=== PATIENT | male | born 1935 | race Caucasian/White ===

== ENCOUNTER 2017-03-01 10:59 | Inpatient (IN) | payer MEDICARE, BC ==
[2017-03-01] MEDS ORDERED: Albuterol/Ipratropium 3.0-0.5 MG/3 ML Neb Soln NEB ONE (11:04)
[2017-03-01] MEDS ORDERED: methylPREDNISolone Sodium Succinate 125 MG/2 ML SDV IVPUSH ONE (11:04)
[2017-03-01] MEDS ORDERED: Ondansetron 4 MG/2 ML SDV IVPUSH ONE (11:07)
--- NOTE | 2017-03-01 11:07 | EDM.PDOC ---
ED HPI GENERAL MEDICAL PROBLEM - General Stated Complaint: DIARRHEA,VOMITING Time Seen by Provider: 03/01/17 11:06 Source of Information: Reports: Patient - History of Present Illness INITIAL COMMENTS - FREE TEXT/NARRATIVE: HISTORY AND PHYSICAL: History of present illness: [] Review of systems: As per history of present illness and below otherwise all systems reviewed and negative. Past medical history: As per history of present illness and as reviewed below otherwise noncontributory. Surgical history: As per history of present illness and as reviewed below otherwise noncontributory. Social history: No reported history of drug or alcohol abuse. Family history: As per history of present illness and as reviewed below otherwise noncontributory. Physical exam: HEENT: Atraumatic, normocephalic, pupils reactive, negative for conjunctival pallor or scleral icterus, mucous membranes moist, throat clear, neck supple, nontender, trachea midline. Lungs: Clear to auscultation, breath sounds equal bilaterally, chest nontender. Heart: S1S2, regular, negative for clicks, rubs, or JVD. Abdomen: Soft, nondistended, nontender. Negative for masses or hepatosplenomegaly. Negative for costovertebral tenderness. Pelvis: Stable nontender. Genitourinary: Deferred. Rectal: Deferred. Extremities: Atraumatic, negative for cords or calf pain. Neurovascular unremarkable. Neuro: Awake, alert, oriented. Cranial nerves II through XII unremarkable. Cerebellum unremarkable. Motor and sensory unremarkable throughout. Exam nonfocal. Diagnostics: []Lab as below EKG Chest 1 view Therapeutics: [DuoNeb Solu-Medrol 125 mg IV Normal saline 1 25 mL per hour Zofran 8 mg IV] Impression: Hypoxia []Viral syndrome Vomiting diarrhea Definitive disposition and diagnosis as appropriate pending reevaluation and review of above. Bilateral Knee Pain Score (Numeric/FACES): 5 - Related Data Allergies Allergy/AdvReac Type Severity Reaction Status Date / Time No Known Allergies Allergy Verified 03/01/17 11:21 Home Meds: Home Meds Lisinopril 10 mg PO DAILY 01/13/15 [History] amLODIPine [Norvasc] 10 mg PO DAILY 01/13/15 [History] traMADol [Ultram] 50 mg PO DAILY 01/13/15 [History] Allopurinol [Zyloprim] 300 mg PO DAILY 03/01/17 [History] Furosemide [Furosemide] 40 mg PO DAILY 03/01/17 [History] Metoprolol Tartrate [Metoprolol Tartrate] 25 mg PO BID 03/01/17 [History] Past Medical History Neurological History: Reports: CVA Endocrine/Metabolic History: Reports: Diabetes, Type II - Past Surgical History Neurological Surgical History: Reports: Lumbar Spine Social & Family History - Tobacco Use Smoking Status *Q: Never Smoker Second Hand Smoke Exposure: No - Recreational Drug Use Recreational Drug Use: No ED ROS GENERAL - Review of Systems Review Of Systems: ROS reveals no pertinent complaints other than HPI. ED EXAM, GENERAL - Physical Exam Exam: See Below Course - Vital Signs Last Recorded V/S: Last Vital Signs Temp 97.5 F 03/01/17 11:09 Pulse 102 H 03/01/17 11:09 Resp 38 H 03/01/17 11:09 BP 90/52 L 03/01/17 11:09 Pulse Ox 89 L 03/01/17 11:09 - Orders/Labs/Meds Orders: Active Orders 24 hr Category Date Time Status Admission Status [Patient Status] [ADT] Stat ADT 03/01/17 12:04 Active EKG Documentation Completion [RC] STAT Care 03/01/17 11:09 Active RT Aerosol Therapy [RC] ASDIRECTED Care 03/01/17 11:05 Active Chest 1V Frontal [CR] Stat Exams 03/01/17 11:04 Taken ABG [BLOOD GAS ARTERIAL] [BG] Stat Lab 03/01/17 11:53 Ordered CULTURE BLOOD [BC] Stat Lab 03/01/17 11:10 Received CULTURE BLOOD [BC] Stat Lab 03/01/17 11:20 Received INFLUENZA A+B AG SCREEN [RM] Stat Lab 03/01/17 11:50 Received UA W/MICROSCOPIC [URIN] Stat Lab 03/01/17 11:04 Uncollected Sodium Chloride 0.9% [Normal Saline] 1,000 ml Med 03/01/17 11:15 Active IV STAT Sodium Chloride 0.9% [Normal Saline] 1,000 ml Med 03/01/17 11:45 Active IV STAT Vancomycin [Vancocin] 1 gm Med 03/01/17 11:32 Active Sodium Chloride 0.9% [Normal Saline] 250 ml IV ONETIME Blood Culture x2 Reflex Set [OM.PC] Stat Oth 03/01/17 11:14 Ordered Medication Orders Sodium Chloride (Normal Saline) 1,000 mls @ 125 mls/hr IV STAT RAUL Vancomycin HCl 1 gm/ Sodium (Chloride) 250 mls @ 250 mls/hr IV ONETIME ONE Stop: 03/01/17 12:31 Last Admin: 03/01/17 11:45 Dose: 250 mls/hr Sodium Chloride (Normal Saline) 1,000 mls @ 125 mls/hr IV STAT [facility] Labs: Laboratory Tests 03/01/17 03/01/17 03/01/17 Range/Units 11:10 11:10 11:10 WBC 28.88 H (4.0-11.0) K/uL RBC 5.35 (4.50-5.90) M/uL Hgb 15.9 (13.0-17.0) g/dL Hct 46.7 (38.0-50.0) % MCV 87.3 (80.0-98.0) fL MCH 29.7 (27.0-32.0) pg MCHC 34.0 (31.0-37.0) g/dL RDW Std Deviation 47.3 (28.0-62.0) fl RDW Coeff of Tanisha 15 (11.0-15.0) % Plt Count 154 (150-400) K/uL MPV 12.40 H (7.40-12.00) fL Add Manual Diff YES Neutrophils % (Manual) 80 (48.0-80.0) % Band Neutrophils % 7 % Lymphocytes % (Manual) 8 L (16.0-40.0) % Monocytes % (Manual) 5 (0.0-15.0) % Nucleated RBC % 0.0 /100WBC Absolute Seg Neuts 23.1 H (1.4-5.7) Band Neutrophils # 2.0 Lymphocytes # (Manual) 2.3 (0.6-2.4) Monocytes # (Manual) 1.4 H (0.0-0.8) Nucleated RBCs # 0 K/uL Lactate (0.20-2.00) mmol/L Sodium 136 (136-146) mmol/L Potassium 3.8 (3.5-5.1) mmol/L Chloride 100 (98-110) mmol/L Carbon Dioxide 16 L (21-31) mmol/L BUN 78 H (6.0-23.0) mg/dL Creatinine 3.2 H (0.6-1.5) mg/dL Est Cr Clr Drug Dosing 16.61 mL/min Estimated GFR (MDRD) 18.8 ml/min Glucose 202 H (60-110) mg/dL POC Glucose (60-110) mg/dL Calcium 9.7 (8.8-10.8) mg/dL Total Bilirubin 1.2 (0.1-1.5) mg/dL AST 22 (5-40) IU/L ALT 12 (8-54) IU/L Alkaline Phosphatase 84 (40-150) Creatine Kinase 100 (9-236) IU/L CK-MB (CK-2) 3.4 (0-6.6) ng/ml Troponin I < 0.10 (0.0-0.29) NG/ML B-Natriuretic Peptide 213 H (<100) PG/ML Total Protein 7.5 (6.0-8.0) g/dL Albumin 3.6 (3.4-4.8) g/dL Globulin 3.9 H (2.0-3.5) g/dL Albumin/Globulin Ratio 0.9 L (1.3-2.8) 03/01/17 03/01/17 Range/Units 11:10 11:11 WBC (4.0-11.0) K/uL RBC (4.50-5.90) M/uL Hgb (13.0-17.0) g/dL Hct (38.0-50.0) % MCV (80.0-98.0) fL MCH (27.0-32.0) pg MCHC (31.0-37.0) g/dL RDW Std Deviation (28.0-62.0) fl RDW Coeff of Tanisha (11.0-15.0) % Plt Count (150-400) K/uL MPV (7.40-12.00) fL Add Manual Diff Neutrophils % (Manual) (48.0-80.0) % Band Neutrophils % % Lymphocytes % (Manual) (16.0-40.0) % Monocytes % (Manual) (0.0-15.0) % Nucleated RBC % /100WBC Absolute Seg Neuts (1.4-5.7) Band Neutrophils # Lymphocytes # (Manual) (0.6-2.4) Monocytes # (Manual) (0.0-0.8) Nucleated RBCs # K/uL Lactate 6.1 H (0.20-2.00) mmol/L Sodium (136-146) mmol/L Potassium (3.5-5.1) mmol/L Chloride (98-110) mmol/L Carbon Dioxide (21-31) mmol/L BUN (6.0-23.0) mg/dL Creatinine (0.6-1.5) mg/dL Est Cr Clr Drug Dosing mL/min Estimated GFR (MDRD) ml/min Glucose (60-110) mg/dL POC Glucose 201 H (60-110) mg/dL Calcium (8.8-10.8) mg/dL Total Bilirubin (0.1-1.5) mg/dL AST (5-40) IU/L ALT (8-54) IU/L Alkaline Phosphatase (40-150) Creatine Kinase (9-236) IU/L CK-MB (CK-2) (0-6.6) ng/ml Troponin I (0.0-0.29) NG/ML B-Natriuretic Peptide (<100) PG/ML Total Protein (6.0-8.0) g/dL Albumin (3.4-4.8) g/dL Globulin (2.0-3.5) g/dL Albumin/Globulin Ratio (1.3-2.8) Meds: Medications Generic Name Dose Route Start Last Admin Trade Name Freq PRN Reason Stop Dose Admin Sodium Chloride 1,000 mls @ 125 mls/hr 03/01/17 11:15 Normal Saline IV STAT RAUL Vancomycin HCl 1 gm/ Sodium 250 mls @ 250 mls/hr 03/01/17 11:32 03/01/17 11: 45 Chloride IV 03/01/17 12:31 250 mls/hr ONETIME ONE Administration Sodium Chloride 1,000 mls @ 125 mls/hr 03/01/17 11:45 Normal Saline IV STAT RAUL Discontinued Medications Generic Name Dose Route Start Last Admin Trade Name Freq PRN Reason Stop Dose Admin Albuterol/Ipratropium 3 ml 03/01/17 11:04 03/01/17 11:34 Duoneb 3.0-0.5 Mg/3 Ml NEB 03/01/17 11:05 3 ml ONETIME ONE Administration Piperacillin Sod/Tazobactam 50 mls @ 100 mls/hr 03/01/17 11:31 03/01/17 11:36 Sod 2.25 gm/ Sodium Chloride IV 03/01/17 12:00 100 mls/hr ONETIME ONE Administration Methylprednisolone Sodium Succinate 125 mg 03/01/17 11:04 03/01/17 11:33 Solu-Medrol IVPUSH 03/01/17 11:05 125 mg ONETIME ONE Administration Ondansetron HCl 8 mg 03/01/17 11:07 03/01/17 11:33 Zofran IVPUSH 03/01/17 11:08 8 mg ONETIME ONE Administration Departure - Departure Time of Disposition: 12:06 Disposition: Admitted As Inpatient 68 Condition: Poor Clinical Impression: Pneumonia, Hypotension - Discharge Information Referrals: Richard Garrido MD [Primary Care Provider] - - My Orders Last 24 Hours: My Active Orders 03/01/17 11:04 Chest 1V Frontal [CR] Stat UA W/MICROSCOPIC [URIN] Stat 03/01/17 11:05 RT Aerosol Therapy [RC] ASDIRECTED 03/01/17 11:09 EKG Documentation Completion [RC] STAT 03/01/17 11:10 CULTURE BLOOD [BC] Stat 03/01/17 11:14 Blood Culture x2 Reflex Set [OM.PC] Stat 03/01/17 11:15 Sodium Chloride 0.9% [Normal Saline] 1,000 ml IV STAT 03/01/17 11:20 CULTURE BLOOD [BC] Stat 03/01/17 11:32 Vancomycin [Vancocin] 1 gm Sodium Chloride 0.9% [Normal Saline] 250 ml IV ONETIME 03/01/17 11:45 Sodium Chloride 0.9% [Normal Saline] 1,000 ml IV STAT 03/01/17 11:50 INFLUENZA A+B AG SCREEN [RM] Stat 03/01/17 11:53 ABG [BLOOD GAS ARTERIAL] [BG] Stat 03/01/17 12:04 Admission Status [Patient Status] [ADT] Stat - Assessment/Plan Last 24 Hours: My Active Orders 03/01/17 11:04 Chest 1V Frontal [CR] Stat UA W/MICROSCOPIC [URIN] Stat 03/01/17 11:05 RT Aerosol Therapy [RC] ASDIRECTED 03/01/17 11:09 EKG Documentation Completion [RC] STAT 03/01/17 11:10 CULTURE BLOOD [BC] Stat 03/01/17 11:14 Blood Culture x2 Reflex Set [OM.PC] Stat 03/01/17 11:15 Sodium Chloride 0.9% [Normal Saline] 1,000 ml IV STAT 03/01/17 11:20 CULTURE BLOOD [BC] Stat 03/01/17 11:32 Vancomycin [Vancocin] 1 gm Sodium Chloride 0.9% [Normal Saline] 250 ml IV ONETIME 03/01/17 11:45 Sodium Chloride 0.9% [Normal Saline] 1,000 ml IV STAT 03/01/17 11:50 INFLUENZA A+B AG SCREEN [RM] Stat 03/01/17 11:53 ABG [BLOOD GAS ARTERIAL] [BG] Stat 03/01/17 12:04 Admission Status [Patient Status] [ADT] Stat
[2017-03-01] MEDS ORDERED: Sodium Chloride 0.9% 1,000 ML IV SCH ×2 (11:15→11:45)
[2017-03-01] MEDS ORDERED: Piperacillin/Tazobactam 2.25 GM in Sodium Chloride 0.9% 50 ML IV ONE (11:31)
[2017-03-01 11:45] LABS: CHLORIDE,CL 100 mmol/L (98-110); SODIUM,NA 136 mmol/L (136-146)
[2017-03-01] MEDS ORDERED: Sodium Chloride 0.9% 500 ML IV ONE (12:25)
--- NOTE | 2017-03-01 12:30 | PCM.HP ---
H&P History of Present Illness - General Date of Service: 03/01/17 Admit Problem/Dx: Admission Diagnosis/Problem Admission Diagnosis/Problem Pneumonia Source of Information: Patient, Family History Limitations: Reports: No Limitations - History of Present Illness Initial Comments - Free Text/Narative: 82 yo male presenting to Ed with chief complaint of shortness of breath with pmh of CHF, Htn, TIA on aspirin, Insulin-dependent DM II, and gout. Patient presented to ED with increasing shortness of breath x 1 week. Reports associated fever, chills, nausea, vomiting and diarrhea x 1 week. States he awoke this am and was unable to eat secondary to sob and decreased appetite. History of CHF, htn, TIA on aspirn only, insulin-dependent DMII and gout. In ED intial BP in low 70's/30's improved to 80/50 with 1 L NS bolus. Found to have WBC of 22k, lactate 6.1, BUN 78, Cr 3.2. CXR revealing mild cardiomegaly with mild interstitial pulmonary edema and early infiltrate in medial right lung base. Patient was alert and orientated in moderate distress but able to answer questions with O2 sat of high 80's to 90's on 15 L nonrebreather. Granddaughter and daughter at bedside. Denies chest pain, palpitations, syncopal episodes, abdominal pain, or focal neurologic deficits. Has had some pain with urination. Patient A&O x3 with family present wishes to be DNR/DNI. Will admit to ICU for septic shock most likely secondary to pneumonia. Bilateral Knee Pain Score (Numeric/FACES): 5 - Related Data Allergies/Adverse Reactions: Allergies Allergy/AdvReac Type Severity Reaction Status Date / Time No Known Allergies Allergy Verified 03/01/17 11:21 Home Medications: Home Meds Lisinopril 10 mg PO DAILY 01/13/15 [History] amLODIPine [Norvasc] 10 mg PO DAILY 01/13/15 [History] traMADol [Ultram] 50 mg PO DAILY 01/13/15 [History] Allopurinol [Zyloprim] 300 mg PO DAILY 03/01/17 [History] Furosemide [Furosemide] 40 mg PO DAILY 03/01/17 [History] Metoprolol Tartrate [Metoprolol Tartrate] 25 mg PO BID 03/01/17 [History] Past Medical History Cardiovascular History: Reports: Hypertension Neurological History: Reports: CVA Endocrine/Metabolic History: Reports: Diabetes, Type II - Infectious Disease History Infectious Disease History: Reports: Chicken Pox, Measles, Mumps, Rubella - Past Surgical History Neurological Surgical History: Reports: Lumbar Spine Social & Family History - Tobacco Use Smoking Status *Q: Never Smoker Used Tobacco, but Quit: Yes Month Tobacco Last Used: 1979 Second Hand Smoke Exposure: No - Caffeine Use Caffeine Use: Reports: Coffee - Alcohol Use Number of Drinks Per Day: 1 - Recreational Drug Use Recreational Drug Use: No H&P Review of Systems - Review of Systems: Review Of Systems: See Below General: Reports: Fever, Chills, Weakness, Fatigue, Diaphoresis HEENT: Denies: Headaches, Sore Throat Pulmonary: Reports: Shortness of Breath, Wheezing, Cough, Sputum Cardiovascular: Denies: Chest Pain, Palpitations, Edema Gastrointestinal: Reports: Diarrhea, Decreased Appetite, Nausea, Vomiting. Denies: Abdominal Pain, Black Stool, Bloody Stool, Constipation Genitourinary: Reports: Dysuria, Burning. Denies: Hematuria Musculoskeletal: Reports: Back Pain. Denies: Neck Pain, Leg Pain Skin: Denies: Cyanosis Psychiatric: Denies: Confusion Neurological: Denies: Confusion, Dizziness, Headache Hematologic/Lymphatic: Denies: Anemia Immunologic: Denies: Anaphylaxis Exam - Exam Exam: See Below - Vital Signs Vital Signs: Last Vital Signs Temp 97.5 F 03/01/17 11:09 Pulse 102 H 03/01/17 11:09 Resp 38 H 03/01/17 11:09 BP 90/52 L 03/01/17 11:09 Pulse Ox 89 L 03/01/17 11:09 Weight: 98 kg - Exam Quality Assessment: Supplemental Oxygen, Urinary Catheter, DVT Prophylaxis General: Alert, Oriented, Cooperative, Moderate Distress HEENT: Conjunctiva Clear, EACs Clear, EOMI, Hearing Intact, Mucosa Moist & [place] , Nares Patent, Normal Nasal Septum, Posterior Pharynx Clear, PERRLA Neck: Supple, Trachea Midline, 2 Lungs: Decreased Breath Sounds, Crackles, Rales, Wheezing Cardiovascular: Regular Rhythm, Normal S1, Normal S2, Tachycardia GI/Abdominal Exam: Normal Bowel Sounds, Soft, Non-Tender, No Organomegaly, No Distention Back Exam: Normal Inspection Extremities: Normal Inspection, Non-Tender, No Pedal Edema, Normal Capillary Refill Peripheral Pulses: 2+: Radial (L), Radial (R), Posterior Tibial (L), Posterior Tibial (R), Dorsalis Pedis (L), Dorsalis Pedis (R) Skin: Warm, Intact, Cool, Moist Neurological: Cranial Nerves Intact Neuro Extensive - Mental Status: Alert, Oriented x3, Normal Mood/Affect, Normal Cognition Psychiatric: Alert, Normal Affect, Normal Mood - Patient Data Lab Results Last 24 hrs: Laboratory Results - last 24 hr 03/01/17 03/01/17 03/01/17 Range/Units 11:10 11:10 11:10 WBC 28.88 H (4.0-11.0) K/uL RBC 5.35 (4.50-5.90) M/uL Hgb 15.9 (13.0-17.0) g/dL Hct 46.7 (38.0-50.0) % MCV 87.3 (80.0-98.0) fL MCH 29.7 (27.0-32.0) pg MCHC 34.0 (31.0-37.0) g/dL RDW Std Deviation 47.3 (28.0-62.0) fl RDW Coeff of Tanisha 15 (11.0-15.0) % Plt Count 154 (150-400) K/uL MPV 12.40 H (7.40-12.00) fL Add Manual Diff YES Neutrophils % (Manual) 80 (48.0-80.0) % Band Neutrophils % 7 % Lymphocytes % (Manual) 8 L (16.0-40.0) % Monocytes % (Manual) 5 (0.0-15.0) % Nucleated RBC % 0.0 /100WBC Absolute Seg Neuts 23.1 H (1.4-5.7) Band Neutrophils # 2.0 Lymphocytes # (Manual) 2.3 (0.6-2.4) Monocytes # (Manual) 1.4 H (0.0-0.8) Nucleated RBCs # 0 K/uL ABG pH (7.35-7.45) ABG pCO2 (35-45) mmHG ABG pO2 (75-100) mmHG ABG HCO3 (22-26) mEq/L ABG Total CO2 ABG Base Excess (-2.0-2.0) Lactate (0.20-2.00) mmol/L Sodium 136 (136-146) mmol/L Potassium 3.8 (3.5-5.1) mmol/L Chloride 100 (98-110) mmol/L Carbon Dioxide 16 L (21-31) mmol/L BUN 78 H (6.0-23.0) mg/dL Creatinine 3.2 H (0.6-1.5) mg/dL Est Cr Clr Drug Dosing 16.61 mL/min Estimated GFR (MDRD) 18.8 ml/min Glucose 202 H (60-110) mg/dL POC Glucose (60-110) mg/dL Calcium 9.7 (8.8-10.8) mg/dL Total Bilirubin 1.2 (0.1-1.5) mg/dL AST 22 (5-40) IU/L ALT 12 (8-54) IU/L Alkaline Phosphatase 84 (40-150) Creatine Kinase 100 (9-236) IU/L CK-MB (CK-2) 3.4 (0-6.6) ng/ml Troponin I < 0.10 (0.0-0.29) NG/ML B-Natriuretic Peptide 213 H (<100) PG/ML Total Protein 7.5 (6.0-8.0) g/dL Albumin 3.6 (3.4-4.8) g/dL Globulin 3.9 H (2.0-3.5) g/dL Albumin/Globulin Ratio 0.9 L (1.3-2.8) 03/01/17 03/01/17 03/01/17 Range/Units 11:10 11:11 11:33 WBC (4.0-11.0) K/uL RBC (4.50-5.90) M/uL Hgb (13.0-17.0) g/dL Hct (38.0-50.0) % MCV (80.0-98.0) fL MCH (27.0-32.0) pg MCHC (31.0-37.0) g/dL RDW Std Deviation (28.0-62.0) fl RDW Coeff of Tanisha (11.0-15.0) % Plt Count (150-400) K/uL MPV (7.40-12.00) fL Add Manual Diff Neutrophils % (Manual) (48.0-80.0) % Band Neutrophils % % Lymphocytes % (Manual) (16.0-40.0) % Monocytes % (Manual) (0.0-15.0) % Nucleated RBC % /100WBC Absolute Seg Neuts (1.4-5.7) Band Neutrophils # Lymphocytes # (Manual) (0.6-2.4) Monocytes # (Manual) (0.0-0.8) Nucleated RBCs # K/uL ABG pH 7.345 L (7.35-7.45) ABG pCO2 30 L (35-45) mmHG ABG pO2 38 L* (75-100) mmHG ABG HCO3 16 L (22-26) mEq/L ABG Total CO2 14.7 ABG Base Excess -7.4 L (-2.0-2.0) Lactate 6.1 H (0.20-2.00) mmol/L Sodium (136-146) mmol/L Potassium (3.5-5.1) mmol/L Chloride (98-110) mmol/L Carbon Dioxide (21-31) mmol/L BUN (6.0-23.0) mg/dL Creatinine (0.6-1.5) mg/dL Est Cr Clr Drug Dosing mL/min Estimated GFR (MDRD) ml/min Glucose (60-110) mg/dL POC Glucose 201 H (60-110) mg/dL Calcium (8.8-10.8) mg/dL Total Bilirubin (0.1-1.5) mg/dL AST (5-40) IU/L ALT (8-54) IU/L Alkaline Phosphatase (40-150) Creatine Kinase (9-236) IU/L CK-MB (CK-2) (0-6.6) ng/ml Troponin I (0.0-0.29) NG/ML B-Natriuretic Peptide (<100) PG/ML Total Protein (6.0-8.0) g/dL Albumin (3.4-4.8) g/dL Globulin (2.0-3.5) g/dL Albumin/Globulin Ratio (1.3-2.8) Result Diagrams: 03/01/17 11:10 03/01/17 11:10 Jc Results Last 24 hrs: Microbiology 03/01/17 11:50 Influenza Type A Antigen Screen - Final Nasopharyngeal Swab NEGATIVE INFLUENZA A VIRUS AG Influenza Type B Antigen Screen - Final NEGATIVE INFLUENZA B VIRUS AG *Q Meaningful Use (ADM) - VTE *Q VTE Criteria *Q: - Stroke *Q Stroke Criteria *Q: - AMI *Q AMI Criteria *Q: - Problem List (1) Sepsis due to Gram-negative organism with septic shock SNOMED Code(s): 078754160 ICD Code: A41.50 - GRAM-NEGATIVE SEPSIS, UNSPECIFIED; R65.21 - SEVERE SEPSIS WITH SEPTIC SHOCK Status: Suspected Priority: High Current Visit: Yes (2) Pneumonia due to gram-negative bacteria SNOMED Code(s): 473904165 ICD Code: J15.6 - PNEUMONIA DUE TO OTHER GRAM-NEGATIVE BACTERIA Status: Suspected Priority: High Current Visit: Yes (3) CHF (congestive heart failure) SNOMED Code(s): 32153355 ICD Code: I50.9 - HEART FAILURE, UNSPECIFIED Status: Chronic Priority: High Current Visit: Yes Qualifiers: Congestive heart failure type: unspecified congestive heart failure type (4) Hypertension SNOMED Code(s): 11777499 ICD Code: I10 - ESSENTIAL (PRIMARY) HYPERTENSION Status: Chronic Priority : Low Current Visit: Yes Qualifiers: Hypertension type: unspecified Qualified Code(s): I10 - Essential (primary ) hypertension (5) Insulin dependent diabetes mellitus SNOMED Code(s): 10358926 ICD Code: E11.9 - TYPE 2 DIABETES MELLITUS WITHOUT COMPLICATIONS; Z79.4 - FAMILY PRESERVATION WORKER (CURRENT) USE OF INSULIN Status: Chronic Priority: Low Current Visit: Yes (6) History of TIA (transient ischemic attack) SNOMED Code(s): 758161771 ICD Code: Z86.73 - PRSNL HX OF TIA (TIA), AND CEREB INFRC W/O RESID DEFICITS Status: Chronic Priority: Low Current Visit: Yes (7) Gout SNOMED Code(s): 26364410 ICD Code: M10.9 - GOUT, UNSPECIFIED Status: Chronic Priority: Low Current Visit: Yes Qualifiers: Gout etiology: unspecified cause Chronicity: unspecified Laterality: unspecified laterality Problem List Initiated/Reviewed/Updated: Yes Orders Last 24hrs: Active Orders 24 hr Category Date Time Status Admission Status [Patient Status] [ADT] Stat ADT 03/01/17 12:04 Active EKG Documentation Completion [RC] STAT Care 03/01/17 11:09 Active RT Aerosol Therapy [RC] ASDIRECTED Care 03/01/17 11:05 Active Chest 1V Frontal [CR] Stat Exams 03/01/17 11:04 Taken CULTURE BLOOD [BC] Stat Lab 03/01/17 11:10 Received CULTURE BLOOD [BC] Stat Lab 03/01/17 11:20 Received UA W/MICROSCOPIC [URIN] Stat Lab 03/01/17 11:04 Uncollected Sodium Chloride 0.9% [Normal Saline] 1,000 ml Med 03/01/17 11:15 Active IV STAT Sodium Chloride 0.9% [Normal Saline] 1,000 ml Med 03/01/17 11:45 Active IV STAT Sodium Chloride 0.9% [Normal Saline] 500 ml Med 03/01/17 12:25 Active IV .Bolus Vancomycin [Vancocin] 1 gm Med 03/01/17 11:32 Active Sodium Chloride 0.9% [Normal Saline] 250 ml IV ONETIME Blood Culture x2 Reflex Set [OM.PC] Stat Oth 03/01/17 11:14 Ordered Medication Orders Sodium Chloride (Normal Saline) 1,000 mls @ 125 mls/hr IV STAT RAUL Vancomycin HCl 1 gm/ Sodium (Chloride) 250 mls @ 250 mls/hr IV ONETIME ONE Stop: 03/01/17 12:31 Last Admin: 03/01/17 11:45 Dose: 250 mls/hr Sodium Chloride (Normal Saline) 1,000 mls @ 125 mls/hr IV STAT RAUL Sodium Chloride (Normal Saline) 500 mls @ 999 mls/hr IV .Bolus ONE Stop: 03/01/17 12:55 Assessment/Plan Comment:: 82 yo male admitted 03/01/17 to ICU secondary to suspected septic shock from gram negative pneumonia with pmh of CHF, Htn, 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, Insulin- dependent DMII and gout. Septic shock w/R medial lung base pna: Serial Lactate q 4 hrs. IVF resus at 200 ml/hr has recieved 2 L of bolus fluids monitor and bolus as needed. Hx of CHF will need to take into consideration. Consider A-line placement once on floor. Vanc, Zosyn, Levaquin. Blood culutures and sputum cultures obtained. Duo-nebs q 4hrs. Blood gas. Telemetry Acute renal failure: Most likely to severe dehydration. IVF resus. Monitor closely. CHF: Echocardiogram, Telemetry. Monitor for vol. overload but needing IVF resus secondary to sepsis and hypotension Htn: Hyotensive secondary to sepsis hold home meds Hx of TIA: Patient will be on Heparin for VTE proph will hold home aspirn DMII: Patient is supposed to be on Insulin as per granddaughter (nurse) but does not take. ISS low dose at this point monitor VTE: Heparin, SCD Dispo: 4-5 days pending.
[2017-03-01] MEDS ORDERED: Ondansetron 4 MG Tab.DIS PO PRN (12:33)
[2017-03-01] MEDS ORDERED: oxyCODONE 5 MG Tab PO PRN (12:33)
[2017-03-01] MEDS ORDERED: Acetaminophen 325 MG Tab PO PRN (12:33)
[2017-03-01] MEDS ORDERED: Polyethylene Glycol 3350 Powder 17 GM Packet PO PRN (12:33)
[2017-03-01] MEDS ORDERED: Morphine 10 MG/ML Syringe IVPUSH PRN (12:33)
[2017-03-01] MEDS ORDERED: Ondansetron 4 MG/2 ML SDV IVPUSH PRN (12:33)
[2017-03-01] MEDS ORDERED: Piperacillin/Tazobactam 4.5 GM in Sodium Chloride 0.9% 100 ML IV SCH (12:45)
[2017-03-01] MEDS ORDERED: Levofloxacin/Dextrose 5%-Water 750 MG in Premix Bag 1 BAG IV SCH ×2 (12:45→14:00)
[2017-03-01] MEDS ORDERED: Piperacillin/Tazobactam 2.25 GM in Sodium Chloride 0.9% 50 ML IV SCH ×2 (13:12→18:00)
[2017-03-01] MEDS ORDERED: Vancomycin 0.5 GM in Sodium Chloride 0.9% 100 ML IV SCH (13:30)
[2017-03-01] MEDS: Sodium Chloride 0.9% 1,000 ML IV SCH ×3 (13:54→23:15)
[2017-03-01] MEDS: Albuterol/Ipratropium 3.0-0.5 MG/3 ML Neb Soln NEB SCH ×3 (13:59→22:42)
[2017-03-01] MEDS ORDERED: Lidocaine 2% 5 ML SDV ONE (14:19)
[2017-03-01] MEDS: cefTRIAXone 2 GM in Premix Bag 1 BAG IV SCH (14:41)
--- NOTE | 2017-03-01 14:43 | PCM.PRNOTE ---
- Free Text/Narrative Note: ARTERIAL LINE (A-Line) PLACEMENT Date: 02/28/17 Time: 1420 Indication: Hemodynamic monitoring Attending: Tonny Zamudio MD A time-out was completed verifying correct patient, procedure, site, positioning , and special equipment if applicable. Allens test was performed to ensure adequate perfusion. The patients left wrist was prepped and draped in sterile fashion. 1% Lidocaine was used to anesthetize the area. A 20G Arrow arterial line was introduced into the radial artery. The catheter was threaded over the guide wire and the needle was removed with appropriate pulsatile blood return. The catheter was then taped in place to the skin and a sterile dressing applied. Perfusion to the extremity distal to the point of catheter insertion was checked and found to be adequate. Estimated Blood Loss: 1 ml The patient tolerated the procedure well and there were no complications.
[2017-03-01] MEDS: Heparin Sodium 5,000 Units/ML Vial SUBCUT SCH ×3 (14:46→22:42)
[2017-03-01] MEDS ORDERED: Insulin Aspart 100 Units/ML 3 ML Pen SUBCUT SCH (17:00)
[2017-03-01] MEDS ORDERED: Magnesium Sulfate/Water 4 GM in Premix Bag 1 BAG IV ONE (19:18)
[2017-03-01] MEDS: Nicotine 7 MG/24 Hr Patch TRDERM SCH (22:01)
[2017-03-01] MEDS: Doxycycline 100 MG Cap PO SCH (22:42)
[2017-03-01] MEDS: Insulin Aspart 100 Units/ML 3 ML Pen SUBCUT SCH (23:01)
[2017-03-02] MEDS ORDERED: Insulin Aspart 100 Units/ML 3 ML Pen SUBCUT SCH
[2017-03-02] MEDS ORDERED: Sodium Chloride 0.9% 500 ML IV SCH (00:45)
[2017-03-02] MEDS: Albuterol/Ipratropium 3.0-0.5 MG/3 ML Neb Soln NEB SCH ×6 (02:38→21:23)
[2017-03-02] MEDS: Sodium Chloride 0.9% 1,000 ML IV SCH ×2 (03:55→15:56)
[2017-03-02] MEDS: Heparin Sodium 5,000 Units/ML Vial SUBCUT SCH ×3 (05:10→21:23)
[2017-03-02] MEDS ORDERED: Potassium Chloride 20 MEQ Tab.ER PO ONE (07:00)
[2017-03-02] MEDS: Insulin Aspart 100 Units/ML 3 ML Pen SUBCUT SCH ×4 (07:27→21:22)
[2017-03-02] MEDS: Nicotine 7 MG/24 Hr Patch TRDERM SCH (08:07)
[2017-03-02] MEDS: Doxycycline 100 MG Cap PO SCH ×2 (08:40→21:23)
--- NOTE | 2017-03-02 08:55 | PCM.PN ---
- General Info Date of Service: 03/02/17 Admission Dx/Problem (Free Text): Admission Diagnosis/Problem Admission Diagnosis/Problem Pneumonia Subjective Update: Feeling much improved not as sob. Continued cough with sputum production. No chest pain, palpitations, abd pain. Did have bm last evening, no blood, or diarrhea. Eating well. Functional Status: Reports: Pain Controlled - Review of Systems General: Reports: Fatigue, Malaise, Chills. Denies: Fever HEENT: Denies: Headaches, Visual Changes Pulmonary: Reports: Shortness of Breath, Cough, Sputum. Denies: Pleuritic Chest Pain, Hemoptysis Cardiovascular: Denies: Chest Pain, Palpitations, Edema Gastrointestinal: Denies: Abdominal Pain, Constipation, Diarrhea, Nausea, Vomiting Genitourinary: Denies: Dysuria, Hematuria Musculoskeletal: Denies: Neck Pain, Leg Pain Skin: Denies: Cyanosis Neurological: Denies: Confusion, Dizziness, Headache Psychiatric: Denies: Confusion - Patient Data Vitals - Most Recent: Last Vital Signs Temp 97.1 F 03/02/17 08:00 Pulse 83 03/01/17 20:00 Resp 17 03/02/17 08:00 BP 137/51 L 03/02/17 08:00 Pulse Ox 93 L 03/02/17 08:00 Weight - Most Recent: 94 kg I&O - Last 24 Hours: Intake & Output 03/01/17 03/02/17 03/02/17 22:59 06:59 14:59 Intake Total 942 3310 Output Total 925 Balance 942 1505 Lab Results Last 24 Hours: Laboratory Results - last 24 hr 03/01/17 03/01/17 03/01/17 Range/Units 12:40 15:16 16:12 WBC (4.0-11.0) K/uL RBC (4.50-5.90) M/uL Hgb (13.0-17.0) g/dL Hct (38.0-50.0) % MCV (80.0-98.0) fL MCH (27.0-32.0) pg MCHC (31.0-37.0) g/dL RDW Std Deviation (28.0-62.0) fl RDW Coeff of Tanisha (11.0-15.0) % Plt Count (150-400) K/uL MPV (7.40-12.00) fL Neut % (Auto) (48.0-80.0) % Lymph % (Auto) (16.0-40.0) % Iron % (Auto) (0.0-15.0) % Eos % (Auto) (0.0-7.0) % Baso % (Auto) (0.0-1.5) % Neut # (Auto) (1.4-5.7) K/uL Lymph # (Auto) (0.6-2.4) K/uL Iron # (Auto) (0.0-0.8) K/uL Eos # (Auto) (0.0-0.7) K/uL Baso # (Auto) (0.0-0.1) K/uL Nucleated RBC % /100WBC Nucleated RBCs # K/uL Lactate 3.0 H (0.20-2.00) mmol/L Sodium (136-146) mmol/L Potassium (3.5-5.1) mmol/L Chloride (98-110) mmol/L Carbon Dioxide (21-31) mmol/L BUN (6.0-23.0) mg/dL Creatinine (0.6-1.5) mg/dL Est Cr Clr Drug Dosing mL/min Estimated GFR (MDRD) ml/min Glucose (60-110) mg/dL POC Glucose 204 H (60-110) mg/dL Calcium (8.8-10.8) mg/dL Phosphorus (2.4-4.7) mg/dL Magnesium (1.5-2.3) mEq/L Total Bilirubin (0.1-1.5) mg/dL AST (5-40) IU/L ALT (8-54) IU/L Alkaline Phosphatase (40-150) Total Protein (6.0-8.0) g/dL Albumin (3.4-4.8) g/dL Globulin (2.0-3.5) g/dL Albumin/Globulin Ratio (1.3-2.8) Urine Color YELLOW Urine Appearance CLOUDY Urine pH 5.0 (5.0-8.0) Ur Specific [place] >= 1.030 (1.001-1.035) Urine Protein 100 (NEGATIVE) mg/dL Urine Glucose (UA) NEGATIVE (NEGATIVE) mg/dL Urine Ketones TRACE H (NEGATIVE) mg/dL Urine Occult Blood LARGE H (NEGATIVE) Urine Nitrite NEGATIVE (NEGATIVE) Urine Bilirubin SMALL H (NEGATIVE) Urine Ictotest NEGATIVE Urine Urobilinogen 0.2 (<2.0) EU/dL Ur Leukocyte Esterase NEGATIVE (NEGATIVE) Urine RBC 7-10 (0-2/HPF) Urine WBC 0-3 (0-5/HPF) Ur Epithelial Cells FEW (NONE-FEW) Amorphous Sediment LIGHT (NEGATIVE) Urine Bacteria OCCASIONAL (NEGATIVE) Hyaline Casts 0-1 (0-2/LPF) Urine Mucus LIGHT (NONE-MOD) 03/01/17 03/01/17 03/01/17 Range/Units 19:14 19:14 22:50 WBC (4.0-11.0) K/uL RBC (4.50-5.90) M/uL Hgb (13.0-17.0) g/dL Hct (38.0-50.0) % MCV (80.0-98.0) fL MCH (27.0-32.0) pg MCHC (31.0-37.0) g/dL RDW Std Deviation (28.0-62.0) fl RDW Coeff of Tanisha (11.0-15.0) % Plt Count (150-400) K/uL MPV (7.40-12.00) fL Neut % (Auto) (48.0-80.0) % Lymph % (Auto) (16.0-40.0) % Iron % (Auto) (0.0-15.0) % Eos % (Auto) (0.0-7.0) % Baso % (Auto) (0.0-1.5) % Neut # (Auto) (1.4-5.7) K/uL Lymph # (Auto) (0.6-2.4) K/uL Iron # (Auto) (0.0-0.8) K/uL Eos # (Auto) (0.0-0.7) K/uL Baso # (Auto) (0.0-0.1) K/uL Nucleated RBC % /100WBC Nucleated RBCs # K/uL Lactate 3.1 H 3.4 H (0.20-2.00) mmol/L Sodium 135 L (136-146) mmol/L Potassium 3.5 (3.5-5.1) mmol/L Chloride 106 (98-110) mmol/L Carbon Dioxide 15 L (21-31) mmol/L BUN 74 H (6.0-23.0) mg/dL Creatinine 2.5 H (0.6-1.5) mg/dL Est Cr Clr Drug Dosing 21.27 mL/min Estimated GFR (MDRD) 25.0 ml/min Glucose 304 H (60-110) mg/dL POC Glucose (60-110) mg/dL Calcium 7.9 L (8.8-10.8) mg/dL Phosphorus (2.4-4.7) mg/dL Magnesium (1.5-2.3) mEq/L Total Bilirubin (0.1-1.5) mg/dL AST (5-40) IU/L ALT (8-54) IU/L Alkaline Phosphatase (40-150) Total Protein (6.0-8.0) g/dL Albumin (3.4-4.8) g/dL Globulin (2.0-3.5) g/dL Albumin/Globulin Ratio (1.3-2.8) Urine Color Urine Appearance Urine pH (5.0-8.0) Ur Specific [place] (1.001-1.035) Urine Protein (NEGATIVE) mg/dL Urine Glucose (UA) (NEGATIVE) mg/dL Urine Ketones (NEGATIVE) mg/dL Urine Occult Blood (NEGATIVE) Urine Nitrite (NEGATIVE) Urine Bilirubin (NEGATIVE) Urine Ictotest Urine Urobilinogen (<2.0) EU/dL Ur Leukocyte Esterase (NEGATIVE) Urine RBC (0-2/HPF) Urine WBC (0-5/HPF) Ur Epithelial Cells (NONE-FEW) Amorphous Sediment (NEGATIVE) Urine Bacteria (NEGATIVE) Hyaline Casts (0-2/LPF) Urine Mucus (NONE-MOD) 03/01/17 03/02/17 03/02/17 Range/Units 22:51 02:53 05:19 WBC 25.17 H (4.0-11.0) K/uL RBC 4.44 L (4.50-5.90) M/uL Hgb 13.0 (13.0-17.0) g/dL Hct 39.0 (38.0-50.0) % MCV 87.8 (80.0-98.0) fL MCH 29.3 (27.0-32.0) pg MCHC 33.3 (31.0-37.0) g/dL RDW Std Deviation 47.9 (28.0-62.0) fl RDW Coeff of Tanisha 15 (11.0-15.0) % Plt Count 144 L (150-400) K/uL MPV 12.40 H (7.40-12.00) fL Neut % (Auto) 93.4 H (48.0-80.0) % Lymph % (Auto) 3.9 L (16.0-40.0) % Iron % (Auto) 2.6 (0.0-15.0) % Eos % (Auto) 0.0 (0.0-7.0) % Baso % (Auto) 0.1 (0.0-1.5) % Neut # (Auto) 23.5 H (1.4-5.7) K/uL Lymph # (Auto) 1.0 (0.6-2.4) K/uL Iron # (Auto) 0.7 (0.0-0.8) K/uL Eos # (Auto) 0.0 (0.0-0.7) K/uL Baso # (Auto) 0.0 (0.0-0.1) K/uL Nucleated RBC % 0.0 /100WBC Nucleated RBCs # 0 K/uL Lactate 1.3 (0.20-2.00) mmol/L Sodium (136-146) mmol/L Potassium (3.5-5.1) mmol/L Chloride (98-110) mmol/L Carbon Dioxide (21-31) mmol/L BUN (6.0-23.0) mg/dL Creatinine (0.6-1.5) mg/dL Est Cr Clr Drug Dosing mL/min Estimated GFR (MDRD) ml/min Glucose (60-110) mg/dL POC Glucose 312 H (60-110) mg/dL Calcium (8.8-10.8) mg/dL Phosphorus (2.4-4.7) mg/dL Magnesium (1.5-2.3) mEq/L Total Bilirubin (0.1-1.5) mg/dL AST (5-40) IU/L ALT (8-54) IU/L Alkaline Phosphatase (40-150) Total Protein (6.0-8.0) g/dL Albumin (3.4-4.8) g/dL Globulin (2.0-3.5) g/dL Albumin/Globulin Ratio (1.3-2.8) Urine Color Urine Appearance Urine pH (5.0-8.0) Ur Specific [place] (1.001-1.035) Urine Protein (NEGATIVE) mg/dL Urine Glucose (UA) (NEGATIVE) mg/dL Urine Ketones (NEGATIVE) mg/dL Urine Occult Blood (NEGATIVE) Urine Nitrite (NEGATIVE) Urine Bilirubin (NEGATIVE) Urine Ictotest Urine Urobilinogen (<2.0) EU/dL Ur Leukocyte Esterase (NEGATIVE) Urine RBC (0-2/HPF) Urine WBC (0-5/HPF) Ur Epithelial Cells (NONE-FEW) Amorphous Sediment (NEGATIVE) Urine Bacteria (NEGATIVE) Hyaline Casts (0-2/LPF) Urine Mucus (NONE-MOD) 03/02/17 03/02/17 Range/Units 05:19 06:56 WBC (4.0-11.0) K/uL RBC (4.50-5.90) M/uL Hgb (13.0-17.0) g/dL Hct (38.0-50.0) % MCV (80.0-98.0) fL MCH (27.0-32.0) pg MCHC (31.0-37.0) g/dL RDW Std Deviation (28.0-62.0) fl RDW Coeff of Tanisha (11.0-15.0) % Plt Count (150-400) K/uL MPV (7.40-12.00) fL Neut % (Auto) (48.0-80.0) % Lymph % (Auto) (16.0-40.0) % Iron % (Auto) (0.0-15.0) % Eos % (Auto) (0.0-7.0) % Baso % (Auto) (0.0-1.5) % Neut # (Auto) (1.4-5.7) K/uL Lymph # (Auto) (0.6-2.4) K/uL Iron # (Auto) (0.0-0.8) K/uL Eos # (Auto) (0.0-0.7) K/uL Baso # (Auto) (0.0-0.1) K/uL Nucleated RBC % /100WBC Nucleated RBCs # K/uL Lactate (0.20-2.00) mmol/L Sodium 138 (136-146) mmol/L Potassium 3.4 L (3.5-5.1) mmol/L Chloride 110 (98-110) mmol/L Carbon Dioxide 17 L (21-31) mmol/L BUN 73 H (6.0-23.0) mg/dL Creatinine 2.3 H (0.6-1.5) mg/dL Est Cr Clr Drug Dosing 26.45 mL/min Estimated GFR (MDRD) 27.5 ml/min Glucose 241 H (60-110) mg/dL POC Glucose 205 H (60-110) mg/dL Calcium 8.4 L (8.8-10.8) mg/dL Phosphorus 4.9 H (2.4-4.7) mg/dL Magnesium 2.2 (1.5-2.3) mEq/L Total Bilirubin 0.4 (0.1-1.5) mg/dL AST 18 (5-40) IU/L ALT 10 (8-54) IU/L Alkaline Phosphatase 75 (40-150) Total Protein 5.9 L (6.0-8.0) g/dL Albumin 2.8 L (3.4-4.8) g/dL Globulin 3.1 (2.0-3.5) g/dL Albumin/Globulin Ratio 0.9 L (1.3-2.8) Urine Color Urine Appearance Urine pH (5.0-8.0) Ur Specific [place] (1.001-1.035) Urine Protein (NEGATIVE) mg/dL Urine Glucose (UA) (NEGATIVE) mg/dL Urine Ketones (NEGATIVE) mg/dL Urine Occult Blood (NEGATIVE) Urine Nitrite (NEGATIVE) Urine Bilirubin (NEGATIVE) Urine Ictotest Urine Urobilinogen (<2.0) EU/dL Ur Leukocyte Esterase (NEGATIVE) Urine RBC (0-2/HPF) Urine WBC (0-5/HPF) Ur Epithelial Cells (NONE-FEW) Amorphous Sediment (NEGATIVE) Urine Bacteria (NEGATIVE) Hyaline Casts (0-2/LPF) Urine Mucus (NONE-MOD) Jc Results Last 24 Hours: Microbiology 03/01/17 18:20 Gram Stain - Preliminary Sputum - Expectorated Sputum Culture - Preliminary 03/01/17 12:40 Legionella Antigen - Final Urine, Catheterized Med Orders - Current: Current Medications Acetaminophen (Tylenol) 650 mg PO Q4H PRN PRN Reason: Pain (Mild 1-3)/fever Albuterol/Ipratropium (Duoneb 3.0-0.5 Mg/3 Ml) 3 ml NEB Q4HRRT [facility] Last Admin: 03/02/17 05:11 Dose: 3 ml Doxycycline Hyclate (Vibramycin) 100 mg PO Q12HR [facility] Last Admin: 03/02/17 08:40 Dose: 100 mg Heparin Sodium (Porcine) (Heparin Sodium) 5,000 units SUBCUT Q8H [facility] Last Admin: 03/02/17 05:10 Dose: 5,000 units Ceftriaxone Sodium/Dextrose 2 (gm/ Premix) 50 mls @ 100 mls/hr IV Q24H [facility] Last Admin: 03/01/17 14:41 Dose: 100 mls/hr Sodium Chloride (Normal Saline) 1,000 mls @ 100 mls/hr IV ASDIRECTED [facility] Last Admin: 03/02/17 03:55 Dose: 100 mls/hr Vancomycin HCl 1,500 mg/ (Sodium Chloride) 500 mls @ 333.333 mls/hr IV Q24H [facility] Last Admin: 03/02/17 08:40 Dose: 333.333 mls/hr Insulin Aspart (Novolog) 0 unit SUBCUT ACBED [facility] PRN Reason: Protocol Last Admin: 03/02/17 07:27 Dose: 4 units Nicotine (Habitrol) 7 mg TRDERM DAILY [facility] Last Admin: 03/02/17 08:07 Dose: Not Given Ondansetron HCl (Zofran Odt) 4 mg PO Q4H PRN PRN Reason: nausea, able to take PO Ondansetron HCl (Zofran) 4 mg IVPUSH Q4H PRN PRN Reason: Nausea Oxycodone HCl (Oxycodone) 5 mg PO Q4H PRN PRN Reason: Pain (moderate 4-6) Polyethylene Glycol (Miralax) 17 gm PO DAILY PRN PRN Reason: Constipation Discontinued Medications Albuterol/Ipratropium (Duoneb 3.0-0.5 Mg/3 Ml) 3 ml NEB ONETIME ONE Stop: 03/01/17 11:05 Last Admin: 03/01/17 11:34 Dose: 3 ml Heparin Sodium (Porcine) (Heparin Sodium) 5,000 units SUBCUT Q8H [facility] Last Admin: 03/01/17 21:52 Dose: Not Given Sodium Chloride (Normal Saline) 1,000 mls @ 125 mls/hr IV STAT [facility]UL Last Admin: 03/01/17 11:15 Dose: 999 mls/hr Piperacillin Sod/Tazobactam (Sod 2.25 gm/ Sodium Chloride) 50 mls @ 100 mls/hr IV ONETIME ONE Stop: 03/01/17 12:00 Last Admin: 03/01/17 11:36 Dose: 100 mls/hr Vancomycin HCl 1 gm/ Sodium (Chloride) 250 mls @ 250 mls/hr IV ONETIME ONE Stop: 03/01/17 12:31 Last Admin: 03/01/17 11:45 Dose: 250 mls/hr Sodium Chloride (Normal Saline) 1,000 mls @ 125 mls/hr IV STAT [facility] Last Admin: 03/01/17 11:50 Dose: 125 mls/hr Sodium Chloride (Normal Saline) 500 mls @ 999 mls/hr IV .Bolus ONE Stop: 03/01/17 12:55 Last Admin: 03/01/17 12:32 Dose: 999 mls/hr Sodium Chloride (Normal Saline) 1,000 mls @ 200 mls/hr IV ASDIRECTED [facility] Last Admin: 03/01/17 23:15 Dose: 200 mls/hr Levofloxacin/Dextrose 750 mg/ (Premix) 150 mls @ 100 mls/hr IV Q24H [facility] Last Admin: 03/01/17 15:26 Dose: Not Given Piperacillin Sod/Tazobactam (Sod 4.5 gm/ Sodium Chloride) 100 mls @ 100 mls/hr IV Q6H [facility] Last Admin: 03/01/17 15:26 Dose: Not Given Vancomycin HCl 0.5 gm/ Sodium (Chloride) 100 mls @ 200 mls/hr IV 03/01/17@1330 RAUL Stop: 03/01/17 13:59 Last Admin: 03/01/17 13:50 Dose: 200 mls/hr Levofloxacin/Dextrose 750 mg/ (Premix) 150 mls @ 100 mls/hr IV Q24H [facility] Stop: 03/01/17 15:29 Levofloxacin/Dextrose 500 mg/ (Premix) 100 mls @ 100 mls/hr IV Q48H [facility] Piperacillin Sod/Tazobactam (Sod 2.25 gm/ Sodium Chloride) 50 mls @ 50 mls/hr IV Q6H [facility] Last Admin: 03/01/17 15:26 Dose: Not Given Piperacillin Sod/Tazobactam (Sod 2.25 gm/ Sodium Chloride) 50 mls @ 50 mls/hr IV Q6H [facility] Vancomycin HCl 1,500 mg/ (Sodium Chloride) 500 mls @ 500 mls/hr IV Q24H [facility] Magnesium Sulfate 4 gm/ Premix 100 mls @ 50 mls/hr IV ONETIME ONE Stop: 03/01/17 21:17 Last Admin: 03/01/17 19:32 Dose: 50 mls/hr Sodium Chloride (Normal Saline) 500 mls @ 999 mls/hr IV .BOLUS [facility] Last Admin: 03/02/17 01:13 Dose: 999 mls/hr Insulin Aspart (Novolog) 0 unit SUBCUT TIDAC [facility] PRN Reason: Protocol Last Admin: 03/01/17 17:02 Dose: 2 units Insulin Aspart (Novolog) 0 - 10 unit SUBCUT QID [facility] PRN Reason: Protocol Lidocaine (Xylocaine-Mpf 2%) Confirm Administered Dose 5 ml .ROUTE .STK-MED ONE Stop: 03/01/17 14:20 Last Admin: 03/01/17 15:02 Dose: 5 ml Methylprednisolone Sodium Succinate (Solu-Medrol) 125 mg IVPUSH ONETIME ONE Stop: 03/01/17 11:05 Last Admin: 03/01/17 11:33 Dose: 125 mg Morphine Sulfate (Morphine) 2 mg IVPUSH Q2H PRN PRN Reason: Pain (severe 7-10) Stop: 03/02/17 12:40 Ondansetron HCl (Zofran) 8 mg IVPUSH ONETIME ONE Stop: 03/01/17 11:08 Last Admin: 03/01/17 11:33 Dose: 8 mg Potassium Chloride (Klor-Con M20) 20 meq PO ONETIME ONE Stop: 03/02/17 07:01 Last Admin: 03/02/17 07:26 Dose: 20 meq Vancomycin HCl (Pharmacy To Dose - Vancomycin) 1 dose .XX ASDIRECTED RAUL - Exam Quality Assessment: Supplemental Oxygen, DVT Prophylaxis General: Alert, Oriented, Cooperative HEENT: Pupils Equal, Pupils Reactive, EOMI, Mucous Membr. Moist/Trout Neck: Supple, Trachea Midline, No JVD Lungs: Normal Respiratory Effort, Decreased Breath Sounds, Crackles, Rales Cardiovascular: Regular Rate, Regular Rhythm GI/Abdominal Exam: Normal Bowel Sounds, Soft, Non-Tender, No Organomegaly, No Distention (Male) Exam: Normal Inspection Back Exam: Normal Inspection Extremities: Normal Inspection, Non-Tender, No Pedal Edema, Normal Capillary Refill Peripheral Pulses: 2+: Radial (L), Radial (R), Posterior Tibial (L), Posterior Tibial (R), Dorsalis Pedis (L), Dorsalis Pedis (R) Skin: Warm, Dry, Intact Neurological: No New Focal Deficit Psy/Mental Status: Alert, Normal Affect, Normal Mood - Problem List & Annotations (1) Sepsis due to Gram-negative organism with septic shock SNOMED Code(s): 169772331 Code(s): A41.50 - GRAM-NEGATIVE SEPSIS, UNSPECIFIED; R65.21 - SEVERE SEPSIS WITH SEPTIC SHOCK Status: Suspected Priority: High Current Visit: Yes (2) Pneumonia due to gram-negative bacteria SNOMED Code(s): 869449401 Code(s): J15.6 - PNEUMONIA DUE TO OTHER GRAM-NEGATIVE BACTERIA Status: Suspected Priority: High Current Visit: Yes (3) CHF (congestive heart failure) SNOMED Code(s): 53023697 Code(s): I50.9 - HEART FAILURE, UNSPECIFIED Status: Chronic Priority: High Current Visit: Yes Qualifiers: Congestive heart failure type: unspecified congestive heart failure type (4) Hypertension SNOMED Code(s): 86998142 Code(s): I10 - ESSENTIAL (PRIMARY) HYPERTENSION Status: Chronic Priority : Low Current Visit: Yes Qualifiers: Hypertension type: unspecified Qualified Code(s): I10 - Essential (primary ) hypertension (5) Insulin dependent diabetes mellitus SNOMED Code(s): 60772915 Code(s): E11.9 - TYPE 2 DIABETES MELLITUS WITHOUT COMPLICATIONS; Z79.4 - STREET SPRINKLER (CURRENT) USE OF INSULIN Status: Chronic Priority: Low Current Visit: Yes (6) History of TIA (transient ischemic attack) SNOMED Code(s): 184795204 Code(s): Z86.73 - PRSNL HX OF TIA (TIA), AND CEREB INFRC W/O RESID DEFICITS Status: Chronic Priority: Low Current Visit: Yes (7) Gout SNOMED Code(s): 77295806 Code(s): M10.9 - GOUT, UNSPECIFIED Status: Chronic Priority: Low Current Visit: Yes Qualifiers: Gout etiology: unspecified cause Chronicity: unspecified Laterality: unspecified laterality (8) Sepsis due to Staphylococcus aureus with acute respiratory failure SNOMED Code(s): 318628711 Code(s): A41.01 - SEPSIS DUE TO METHICILLIN SUSCEPTIBLE STAPHYLOCOCCUS AUREUS ; R65.20 - SEVERE SEPSIS WITHOUT SEPTIC SHOCK; J96.00 - ACUTE RESPIRATORY FAILURE, UNSP W HYPOXIA OR HYPERCAPNIA Status: Acute Priority: High Current Visit: Yes - Problem List Review Problem List Initiated/Reviewed/Updated: Yes - My Orders Last 24 Hours: My Active Orders 03/01/17 12:33 Patient Status [ADT] Routine Bedrest Bedside Commode [RC] ASDIRECTED Blood Glucose Check, Bedside [RC] WITHMEALSANDBED Communication Order [RC] ROUTINE Height and Weight [RC] DAILY Oxygen Therapy [RC] PRN Urinary Catheter Assessment [RC] Q4H Vital Signs [RC] Q1H Acetaminophen [Tylenol] 650 mg PO Q4H PRN Ondansetron [Zofran ODT] 4 mg PO Q4H PRN Ondansetron [Zofran] 4 mg IVPUSH Q4H PRN Polyethylene Glycol 3350 [MiraLAX] 17 gm PO DAILY PRN oxyCODONE 5 mg PO Q4H PRN Resuscitation Status Routine 03/01/17 12:37 Intake and Output [RC] Q12H Pulse Oximetry [RC] CONTINUOUS Sequential Compression Device [OM.PC] Per Unit Routine 03/01/17 12:39 Antiembolic Devices [RC] Q12H 03/01/17 12:41 RT Aerosol Therapy [RC] ASDIRECTED 03/01/17 13:45 Echo Comp wo Cont [US] Stat 03/01/17 14:00 Albuterol/Ipratropium [DuoNeb 3.0-0.5 MG/3 ML] 3 ml NEB Q4HRRT 03/01/17 18:20 CULTURE SPUTUM + SMEAR [RM] Stat 03/01/17 21:00 Nicotine [Habitrol] 7 mg TRDERM DAILY 03/01/17 22:00 Heparin Sodium 5,000 units SUBCUT Q8H 03/01/17 Dinner [employer] Diet [DIET] 03/02/17 07:30 Insulin Aspart [NovoLOG] See Protocol SUBCUT ACBED 03/02/17 08:15 Vancomycin 1,500 mg Sodium Chloride 0.9% [Normal Saline] 500 ml IV Q24H 03/03/17 05:11 CBC WITH AUTO DIFF [HEME] AM COMPREHENSIVE METABOLIC PN,CMP [CHEM] AM MAGNESIUM [CHEM] AM PHOSPHORUS [CHEM] AM 03/04/17 05:11 CBC WITH AUTO DIFF [HEME] AM COMPREHENSIVE METABOLIC PN,CMP [CHEM] AM MAGNESIUM [CHEM] AM PHOSPHORUS [CHEM] AM 03/05/17 05:11 CBC WITH AUTO DIFF [HEME] AM COMPREHENSIVE METABOLIC PN,CMP [CHEM] AM MAGNESIUM [CHEM] AM PHOSPHORUS [CHEM] AM - Plan Plan:: 82 yo male admitted 03/01/17 to ICU secondary to suspected septic shock from gram negative pneumonia with pmh of CHF, Htn, 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, Insulin- dependent DMII and gout. Staph pneumonia with sepsis: Blood culutures positive for gram + cocci in clusters cont. Vanc. Lactate within normal limits and renal function improving. Will decrease IVF resus to 100ml/hr and monitor closely patient has history of CHF. On Rocephin and Doxy as per EICU, Zosyn, Levaquin d/awais. Cont. Duo-nebs and Telemetry Acute renal failure: Improving. Most likely to severe dehydration. Careful IVF resus. Monitor closely. CHF: Telemetry. Monitor for vol. overload. Lactatic acid within normal limits now but remaining ARF. Reduced IVF to 100ml/hr. Echo: 1. LVEF 55% 2. Mild septal LV hypertrophy 3. Mild aortic valve sclerosis without stenosis 4. Mild aortic valve regurg 5. Trace tricuspid valve regurg 6. Mild dilation of aortic root 7. Moderate biatrial dilation Htn: Hyotensive secondary to sepsis improved. hold home meds Hx of TIA: Patient will be on Heparin for VTE proph will hold home aspirn DMII: ISS medium dose VTE: Heparin, SCD Dispo: 3-4 days pending.
--- NOTE | 2017-03-02 09:57 | CR ---
EXAM DATE: 03/01/17 PATIENT'S AGE: 82 Patient: CHEMO [address]ARLANE Facility: [place], [place] Site . Site : [id number] Study: XRay Chest [id number] 11:53:55 AM Ordering Physician: Doctor Caban Final Report: INDICATION: HYPOXIA. TECHNIQUE: Chest radiograph 1 view COMPARISON: None FINDINGS: Cardiac silhouette borderline enlarged. Diffuse interstitial opacification with likely central vascular congestion. No pneumothorax or blunting of the costophrenic sulci. Bilateral shoulder degenerative changes with likely left calcific rotator cuff tendinopathy. No suspicious pulmonary nodularity. IMPRESSION: 1. Mild cardiomegaly with likely mild degree of interstitial pulmonary edema. Possible early infiltrate at the medial right lung base. Differential may include mild chronic pulmonary fibrotic changes, difficult to evaluate with no comparison studies available. Dictated by Declan Fernando MD @ 03/01/2017 12:22:22 PM Dictated by: Declan Fernando MD @ 03/01/2017 12:22:29 (Electronic Signature) Report Signed by Proxy. [facility]
[2017-03-02] MEDS: cefTRIAXone 2 GM in Premix Bag 1 BAG IV SCH (13:13)
[2017-03-02] MEDS ORDERED: Hydrocolloid Dressing 4x4 Bandage TOP ONE (23:26)
[2017-03-03] MEDS: Albuterol/Ipratropium 3.0-0.5 MG/3 ML Neb Soln NEB SCH ×6 (02:12→21:50)
[2017-03-03] MEDS: Heparin Sodium 5,000 Units/ML Vial SUBCUT SCH ×3 (05:53→21:50)
[2017-03-03] MEDS: Insulin Aspart 100 Units/ML 3 ML Pen SUBCUT SCH ×4 (06:42→21:49)
[2017-03-03] MEDS: Doxycycline 100 MG Cap PO SCH (08:11)
[2017-03-03] MEDS: Nicotine 7 MG/24 Hr Patch TRDERM SCH (08:11)
[2017-03-03] MEDS ORDERED: Vancomycin 250 MG in Sodium Chloride 0.9% 100 ML IV ONE (10:00)
--- NOTE | 2017-03-03 13:33 | PCM.PN ---
- Review of Systems Systems Review Comment:: feeling better, shortness of breath improved. reports dyspne on exertion - Patient Data Vitals - Most Recent: Last Vital Signs Temp 36.6 C 03/03/17 12:00 Pulse 74 03/03/17 13:00 Resp 14 03/03/17 13:00 BP 117/45 L 03/03/17 13:00 Pulse Ox 93 L 03/03/17 13:00 Weight - Most Recent: 97 kg I&O - Last 24 Hours: Intake & Output 03/02/17 03/03/17 03/03/17 22:59 06:59 14:59 Intake Total 4050 800 2080 Output Total 550 1100 800 Balance 3500 -300 1280 Lab Results Last 24 Hours: Laboratory Results - last 24 hr 03/02/17 03/02/17 03/03/17 Range/Units 17:43 21:09 05:37 WBC 29.40 H (4.0-11.0) K/uL RBC 4.34 L (4.50-5.90) M/uL Hgb 12.8 L (13.0-17.0) g/dL Hct 37.4 L (38.0-50.0) % MCV 86.2 (80.0-98.0) fL MCH 29.5 (27.0-32.0) pg MCHC 34.2 (31.0-37.0) g/dL RDW Std Deviation 45.7 (28.0-62.0) fl RDW Coeff of Tanisha 15 (11.0-15.0) % Plt Count 158 (150-400) K/uL MPV 12.80 H (7.40-12.00) fL Add Manual Diff YES Neutrophils % (Manual) 91 H (48.0-80.0) % Band Neutrophils % 5 % Lymphocytes % (Manual) 2 L (16.0-40.0) % Monocytes % (Manual) 2 (0.0-15.0) % Nucleated RBC % 0.0 /100WBC Absolute Seg Neuts 26.8 H (1.4-5.7) Band Neutrophils # 1.5 Lymphocytes # (Manual) 0.6 (0.6-2.4) Monocytes # (Manual) 0.6 (0.0-0.8) Nucleated RBCs # 0 K/uL Sodium (136-146) mmol/L Potassium (3.5-5.1) mmol/L Chloride (98-110) mmol/L Carbon Dioxide (21-31) mmol/L BUN (6.0-23.0) mg/dL Creatinine (0.6-1.5) mg/dL Est Cr Clr Drug Dosing mL/min Estimated GFR (MDRD) ml/min Glucose (60-110) mg/dL POC Glucose 241 H 260 H (60-110) mg/dL Calcium (8.8-10.8) mg/dL Phosphorus (2.4-4.7) mg/dL Magnesium (1.5-2.3) mEq/L Total Bilirubin (0.1-1.5) mg/dL AST (5-40) IU/L ALT (8-54) IU/L Alkaline Phosphatase (40-150) Total Protein (6.0-8.0) g/dL Albumin (3.4-4.8) g/dL Globulin (2.0-3.5) g/dL Albumin/Globulin Ratio (1.3-2.8) 03/03/17 03/03/17 03/03/17 Range/Units 05:37 06:36 11:02 WBC (4.0-11.0) K/uL RBC (4.50-5.90) M/uL Hgb (13.0-17.0) g/dL Hct (38.0-50.0) % MCV (80.0-98.0) fL MCH (27.0-32.0) pg MCHC (31.0-37.0) g/dL RDW Std Deviation (28.0-62.0) fl RDW Coeff of Tanisha (11.0-15.0) % Plt Count (150-400) K/uL MPV (7.40-12.00) fL Add Manual Diff Neutrophils % (Manual) (48.0-80.0) % Band Neutrophils % % Lymphocytes % (Manual) (16.0-40.0) % Monocytes % (Manual) (0.0-15.0) % Nucleated RBC % /100WBC Absolute Seg Neuts (1.4-5.7) Band Neutrophils # Lymphocytes # (Manual) (0.6-2.4) Monocytes # (Manual) (0.0-0.8) Nucleated RBCs # K/uL Sodium 140 (136-146) mmol/L Potassium 3.6 (3.5-5.1) mmol/L Chloride 113 H (98-110) mmol/L Carbon Dioxide 19 L (21-31) mmol/L BUN 68 H (6.0-23.0) mg/dL Creatinine 1.7 H (0.6-1.5) mg/dL Est Cr Clr Drug Dosing 35.78 mL/min Estimated GFR (MDRD) 39.0 ml/min Glucose 225 H (60-110) mg/dL POC Glucose 204 H 245 H (60-110) mg/dL Calcium 7.9 L (8.8-10.8) mg/dL Phosphorus 2.9 (2.4-4.7) mg/dL Magnesium 1.9 (1.5-2.3) mEq/L Total Bilirubin 0.3 (0.1-1.5) mg/dL AST 22 (5-40) IU/L ALT 14 (8-54) IU/L Alkaline Phosphatase 83 (40-150) Total Protein 5.0 L (6.0-8.0) g/dL Albumin 2.6 L (3.4-4.8) g/dL Globulin 2.4 (2.0-3.5) g/dL Albumin/Globulin Ratio 1.1 L (1.3-2.8) Jc Results Last 24 Hours: Microbiology 03/01/17 18:20 Gram Stain - Final Sputum - Expectorated Sputum Culture - Final (Mrsa) Staphylococcus Aureus Med Orders - Current: Current Medications Acetaminophen (Tylenol) 650 mg PO Q4H PRN PRN Reason: Pain (Mild 1-3)/fever Albuterol/Ipratropium (Duoneb 3.0-0.5 Mg/3 Ml) 3 ml NEB Q4HRRT [facility] Last Admin: 03/03/17 13:27 Dose: 3 ml Doxycycline Hyclate (Vibramycin) 100 mg PO Q12HR [facility] Last Admin: 03/03/17 08:11 Dose: 100 mg Heparin Sodium (Porcine) (Heparin Sodium) 5,000 units SUBCUT Q8H [facility] Last Admin: 03/03/17 13:20 Dose: 5,000 units Ceftriaxone Sodium/Dextrose 2 (gm/ Premix) 50 mls @ 100 mls/hr IV Q24H [facility] Last Admin: 03/02/17 13:13 Dose: 100 mls/hr Vancomycin HCl 2,000 mg/ (Sodium Chloride) 500 mls @ 250 mls/hr IV Q24H [facility] Insulin Aspart (Novolog) 0 unit SUBCUT ACBED [facility] PRN Reason: Protocol Last Admin: 03/03/17 11:04 Dose: 4 units Nicotine (Habitrol) 7 mg TRDERM DAILY [facility] Last Admin: 03/03/17 08:11 Dose: Not Given Ondansetron HCl (Zofran Odt) 4 mg PO Q4H PRN PRN Reason: nausea, able to take PO Ondansetron HCl (Zofran) 4 mg IVPUSH Q4H PRN PRN Reason: Nausea Oxycodone HCl (Oxycodone) 5 mg PO Q4H PRN PRN Reason: Pain (moderate 4-6) Polyethylene Glycol (Miralax) 17 gm PO DAILY PRN PRN Reason: Constipation Discontinued Medications Albuterol/Ipratropium (Duoneb 3.0-0.5 Mg/3 Ml) 3 ml NEB ONETIME ONE Stop: 03/01/17 11:05 Last Admin: 03/01/17 11:34 Dose: 3 ml Heparin Sodium (Porcine) (Heparin Sodium) 5,000 units SUBCUT Q8H [facility] Last Admin: 03/01/17 21:52 Dose: Not Given Sodium Chloride (Normal Saline) 1,000 mls @ 125 mls/hr IV STAT [facility] Last Admin: 03/01/17 11:15 Dose: 999 mls/hr Piperacillin Sod/Tazobactam (Sod 2.25 gm/ Sodium Chloride) 50 mls @ 100 mls/hr IV ONETIME ONE Stop: 03/01/17 12:00 Last Admin: 03/01/17 11:36 Dose: 100 mls/hr Vancomycin HCl 1 gm/ Sodium (Chloride) 250 mls @ 250 mls/hr IV ONETIME ONE Stop: 03/01/17 12:31 Last Admin: 03/01/17 11:45 Dose: 250 mls/hr Sodium Chloride (Normal Saline) 1,000 mls @ 125 mls/hr IV STAT [facility] Last Admin: 03/01/17 11:50 Dose: 125 mls/hr Sodium Chloride (Normal Saline) 500 mls @ 999 mls/hr IV .Bolus ONE Stop: 03/01/17 12:55 Last Admin: 03/01/17 12:32 Dose: 999 mls/hr Sodium Chloride (Normal Saline) 1,000 mls @ 200 mls/hr IV ASDIRECTED [facility] Last Admin: 03/01/17 23:15 Dose: 200 mls/hr Levofloxacin/Dextrose 750 mg/ (Premix) 150 mls @ 100 mls/hr IV Q24H [facility] Last Admin: 03/01/17 15:26 Dose: Not Given Piperacillin Sod/Tazobactam (Sod 4.5 gm/ Sodium Chloride) 100 mls @ 100 mls/hr IV Q6H [facility] Last Admin: 03/01/17 15:26 Dose: Not Given Vancomycin HCl 0.5 gm/ Sodium (Chloride) 100 mls @ 200 mls/hr IV 03/01/17@1330 [facility] Stop: 03/01/17 13:59 Last Admin: 03/01/17 13:50 Dose: 200 mls/hr Levofloxacin/Dextrose 750 mg/ (Premix) 150 mls @ 100 mls/hr IV Q24H [facility] Stop: 03/01/17 15:29 Levofloxacin/Dextrose 500 mg/ (Premix) 100 mls @ 100 mls/hr IV Q48H [facility] Piperacillin Sod/Tazobactam (Sod 2.25 gm/ Sodium Chloride) 50 mls @ 50 mls/hr IV Q6H [facility] Last Admin: 03/01/17 15:26 Dose: Not Given Piperacillin Sod/Tazobactam (Sod 2.25 gm/ Sodium Chloride) 50 mls @ 50 mls/hr IV Q6H [facility] Vancomycin HCl 1,500 mg/ (Sodium Chloride) 500 mls @ 500 mls/hr IV Q24H [facility] Magnesium Sulfate 4 gm/ Premix 100 mls @ 50 mls/hr IV ONETIME ONE Stop: 03/01/17 21:17 Last Admin: 03/01/17 19:32 Dose: 50 mls/hr Sodium Chloride (Normal Saline) 500 mls @ 999 mls/hr IV .BOLUS [facility] Last Admin: 03/02/17 01:13 Dose: 999 mls/hr Sodium Chloride (Normal Saline) 1,000 mls @ 100 mls/hr IV ASDIRECTED [facility] Last Admin: 03/02/17 15:56 Dose: 100 mls/hr Vancomycin HCl 1,500 mg/ (Sodium Chloride) 500 mls @ 333.333 mls/hr IV Q24H [facility] Last Admin: 03/03/17 08:10 Dose: 333.333 mls/hr Vancomycin HCl 250 mg/ Sodium (Chloride) 100 mls @ 200 mls/hr IV ONETIME ONE Stop: 03/03/17 10:29 Vancomycin HCl 500 mg/ Sodium (Chloride) 100 mls @ 100 mls/hr IV ONETIME ONE Stop: 03/03/17 10:59 Vancomycin HCl 500 mg/ Sodium (Chloride) 100 mls @ 100 mls/hr IV ONETIME ONE Stop: 03/03/17 10:59 Last Admin: 03/03/17 10:39 Dose: 100 mls/hr Insulin Aspart (Novolog) 0 unit SUBCUT TIDAC [facility] PRN Reason: Protocol Last Admin: 03/01/17 17:02 Dose: 2 units Insulin Aspart (Novolog) 0 - 10 unit SUBCUT QID [facility] PRN Reason: Protocol Lidocaine (Xylocaine-Mpf 2%) Confirm Administered Dose 5 ml .ROUTE .STK-MED ONE Stop: 03/01/17 14:20 Last Admin: 03/01/17 15:02 Dose: 5 ml Methylprednisolone Sodium Succinate (Solu-Medrol) 125 mg IVPUSH ONETIME ONE Stop: 03/01/17 11:05 Last Admin: 03/01/17 11:33 Dose: 125 mg Morphine Sulfate (Morphine) 2 mg IVPUSH Q2H PRN PRN Reason: Pain (severe 7-10) Stop: 03/02/17 12:40 Ondansetron HCl (Zofran) 8 mg IVPUSH ONETIME ONE Stop: 03/01/17 11:08 Last Admin: 03/01/17 11:33 Dose: 8 mg Potassium Chloride (Klor-Con M20) 20 meq PO ONETIME ONE Stop: 03/02/17 07:01 Last Admin: 03/02/17 07:26 Dose: 20 meq Vancomycin HCl (Pharmacy To Dose - Vancomycin) 1 dose .XX ASDIRECTED [facility] Wound Care/Dressing Products (Duoderm Cgf) 1 each TOP ASDIRECTED ONE Stop: 03/02/17 23:27 Last Admin: 03/02/17 23:47 Dose: 1 each - Exam General: Alert, Oriented Neck: Supple Lungs: Normal Respiratory Effort, Rhonchi Cardiovascular: Regular Rate, Regular Rhythm GI/Abdominal Exam: Soft, Non-Tender, No Distention Extremities: Non-Tender. 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 MRSA pneumonia with sepsis: we will continue vancomycin, d/c rocephine and doxycyclin. repeat cultures to check for clearance. Acute renal failure: improving, creatinine is 1.7 Hx of TIA: Patient will be on Heparin for VTE proph will hold home aspirn DMII: ISS medium dose VTE: Heparin, SCD Dispo: 3-4 days pending.
[2017-03-03] MEDS ORDERED: Levofloxacin/Dextrose 5%-Water 500 MG in Premix Bag 1 BAG IV SCH (14:00)
[2017-03-03] MEDS ORDERED: Furosemide 40 MG/4 ML VIAL IVPUSH SCH (23:00)
[2017-03-04] MEDS: Albuterol/Ipratropium 3.0-0.5 MG/3 ML Neb Soln NEB SCH ×6 (02:20→21:07)
[2017-03-04] MEDS: Heparin Sodium 5,000 Units/ML Vial SUBCUT SCH ×3 (06:09→21:05)
[2017-03-04] MEDS ORDERED: Potassium Phosphates 30 MMOLE in Sodium Chloride 0.9% 500 ML IV ONE (06:20)
[2017-03-04] MEDS ORDERED: Magnesium Sulfate/Water 2 GM in Premix Bag 1 BAG IV ONE ×2 (06:22→16:00)
[2017-03-04] MEDS ORDERED: Potassium Chloride 20 MEQ Tab.ER PO ONE (06:23)
[2017-03-04] MEDS: Insulin Aspart 100 Units/ML 3 ML Pen SUBCUT SCH ×4 (06:44→21:04)
[2017-03-04] MEDS: Furosemide 40 MG/4 ML VIAL IVPUSH SCH ×2 (07:55→20:19)
[2017-03-04] MEDS: Nicotine 7 MG/24 Hr Patch TRDERM SCH (08:02)
--- NOTE | 2017-03-04 08:58 | PCM.PN ---
- General Info Date of Service: 03/04/17 Admission Dx/Problem (Free Text): Admission Diagnosis/Problem Admission Diagnosis/Problem Pneumonia Subjective Update: Patient reports some improvement of SOB and cough today. No other complaints - Review of Systems HEENT: Reports: No Symptoms Pulmonary: Reports: Shortness of Breath, Cough Cardiovascular: Reports: No Symptoms Gastrointestinal: Reports: No Symptoms Genitourinary: Reports: No Symptoms Musculoskeletal: Reports: No Symptoms Skin: Reports: No Symptoms Neurological: Reports: No Symptoms Psychiatric: Reports: No Symptoms - Patient Data Vitals - Most Recent: Last Vital Signs Temp 36.6 C 03/04/17 08:00 Pulse 88 03/04/17 08:00 Resp 21 H 03/04/17 08:00 BP 132/54 L 03/04/17 08:00 Pulse Ox 92 L 03/04/17 08:00 Weight - Most Recent: 95 kg I&O - Last 24 Hours: Intake & Output 03/03/17 03/04/17 03/04/17 22:59 06:59 14:59 Intake Total 328 726 3054 Output Total 400 3650 1350 Balance 482 -3050 700 Lab Results Last 24 Hours: Laboratory Results - last 24 hr 03/03/17 03/03/17 03/03/17 Range/Units 11:02 16:01 21:32 WBC (4.0-11.0) K/uL RBC (4.50-5.90) M/uL Hgb (13.0-17.0) g/dL Hct (38.0-50.0) % MCV (80.0-98.0) fL MCH (27.0-32.0) pg MCHC (31.0-37.0) g/dL RDW Std Deviation (28.0-62.0) fl RDW Coeff of Tanisha (11.0-15.0) % Plt Count (150-400) K/uL MPV (7.40-12.00) fL Add Manual Diff Neutrophils % (Manual) (48.0-80.0) % Band Neutrophils % % Lymphocytes % (Manual) (16.0-40.0) % Monocytes % (Manual) (0.0-15.0) % Nucleated RBC % /100WBC Absolute Seg Neuts (1.4-5.7) Band Neutrophils # Lymphocytes # (Manual) (0.6-2.4) Monocytes # (Manual) (0.0-0.8) Nucleated RBCs # K/uL Sodium (136-146) mmol/L Potassium (3.5-5.1) mmol/L Chloride (98-110) mmol/L Carbon Dioxide (21-31) mmol/L BUN (6.0-23.0) mg/dL Creatinine (0.6-1.5) mg/dL Est Cr Clr Drug Dosing mL/min Estimated GFR (MDRD) ml/min Glucose (60-110) mg/dL POC Glucose 245 H 195 H 217 H (60-110) mg/dL Calcium (8.8-10.8) mg/dL Phosphorus (2.4-4.7) mg/dL Magnesium (1.5-2.3) mEq/L Total Bilirubin (0.1-1.5) mg/dL AST (5-40) IU/L ALT (8-54) IU/L Alkaline Phosphatase (40-150) Total Protein (6.0-8.0) g/dL Albumin (3.4-4.8) g/dL Globulin (2.0-3.5) g/dL Albumin/Globulin Ratio (1.3-2.8) Vancomycin Trough (5-15) ug/mL 03/04/17 03/04/17 03/04/17 Range/Units 04:51 04:51 07:32 WBC 23.32 H (4.0-11.0) K/uL RBC 4.51 (4.50-5.90) M/uL Hgb 13.1 (13.0-17.0) g/dL Hct 38.8 (38.0-50.0) % MCV 86.0 (80.0-98.0) fL MCH 29.0 (27.0-32.0) pg MCHC 33.8 (31.0-37.0) g/dL RDW Std Deviation 45.7 (28.0-62.0) fl RDW Coeff of Tanisha 15 (11.0-15.0) % Plt Count 155 (150-400) K/uL MPV 12.90 H (7.40-12.00) fL Add Manual Diff YES Neutrophils % (Manual) 81 H (48.0-80.0) % Band Neutrophils % 4 % Lymphocytes % (Manual) 13 L (16.0-40.0) % Monocytes % (Manual) 2 (0.0-15.0) % Nucleated RBC % 0.0 /100WBC Absolute Seg Neuts 18.9 H (1.4-5.7) Band Neutrophils # 0.9 Lymphocytes # (Manual) 3.0 H (0.6-2.4) Monocytes # (Manual) 0.5 (0.0-0.8) Nucleated RBCs # 0 K/uL Sodium 140 (136-146) mmol/L Potassium 3.3 L (3.5-5.1) mmol/L Chloride 112 H (98-110) mmol/L Carbon Dioxide 20 L (21-31) mmol/L BUN 48 H (6.0-23.0) mg/dL Creatinine 1.4 (0.6-1.5) mg/dL Est Cr Clr Drug Dosing 43.45 mL/min Estimated GFR (MDRD) 48.8 ml/min Glucose 179 H (60-110) mg/dL POC Glucose (60-110) mg/dL Calcium 8.4 L (8.8-10.8) mg/dL Phosphorus 1.8 L (2.4-4.7) mg/dL Magnesium 1.3 L (1.5-2.3) mEq/L Total Bilirubin 0.6 (0.1-1.5) mg/dL AST 37 (5-40) IU/L ALT 26 (8-54) IU/L Alkaline Phosphatase 109 (40-150) Total Protein 5.8 L (6.0-8.0) g/dL Albumin 2.6 L (3.4-4.8) g/dL Globulin 3.2 (2.0-3.5) g/dL Albumin/Globulin Ratio 0.8 L (1.3-2.8) Vancomycin Trough 18.0 H (5-15) ug/mL Jc Results Last 24 Hours: Microbiology 03/01/17 18:20 Gram Stain - Final Sputum - Expectorated Sputum Culture - Final (Mrsa) Staphylococcus Aureus Med Orders - Current: Current Medications Acetaminophen (Tylenol) 650 mg PO Q4H PRN PRN Reason: Pain (Mild 1-3)/fever Albuterol/Ipratropium (Duoneb 3.0-0.5 Mg/3 Ml) 3 ml NEB Q4HRRT [facility] Last Admin: 03/04/17 06:26 Dose: 3 ml Furosemide (Lasix) 40 mg IVPUSH Q12H [facility] Last Admin: 03/04/17 07:55 Dose: 40 mg Heparin Sodium (Porcine) (Heparin Sodium) 5,000 units SUBCUT Q8H [facility] Last Admin: 03/04/17 06:09 Dose: 5,000 units Vancomycin HCl 2,000 mg/ (Sodium Chloride) 500 mls @ 250 mls/hr IV Q24H [facility] Last Admin: 03/04/17 07:48 Dose: 250 mls/hr Potassium Phosphate 30 mmole/ (Sodium Chloride) 510 mls @ 100 mls/hr IV NOW ONE Stop: 03/04/17 11:25 Last Admin: 03/04/17 07:55 Dose: 100 mls/hr Insulin Aspart (Novolog) 0 unit SUBCUT ACBED [facility] PRN Reason: Protocol Last Admin: 03/04/17 06:44 Dose: 2 units Nicotine (Habitrol) 7 mg TRDERM DAILY [facility] Last Admin: 03/04/17 08:02 Dose: Not Given Ondansetron HCl (Zofran Odt) 4 mg PO Q4H PRN PRN Reason: nausea, able to take PO Ondansetron HCl (Zofran) 4 mg IVPUSH Q4H PRN PRN Reason: Nausea Oxycodone HCl (Oxycodone) 5 mg PO Q4H PRN PRN Reason: Pain (moderate 4-6) Polyethylene Glycol (Miralax) 17 gm PO DAILY PRN PRN Reason: Constipation Wound Care/Dressing Products (Duoderm Cgf) 1 each TOP ASDIRECTED PRN PRN Reason: Ulcer on coccyx Discontinued Medications Albuterol/Ipratropium (Duoneb 3.0-0.5 Mg/3 Ml) 3 ml NEB ONETIME ONE Stop: 03/01/17 11:05 Last Admin: 03/01/17 11:34 Dose: 3 ml Doxycycline Hyclate (Vibramycin) 100 mg PO Q12HR [facility] Last Admin: 03/03/17 08:11 Dose: 100 mg Furosemide (Lasix) 40 mg IVPUSH Q8H [facility] Last Admin: 03/04/17 00:32 Dose: 40 mg Heparin Sodium (Porcine) (Heparin Sodium) 5,000 units SUBCUT Q8H [facility] Last Admin: 03/01/17 21:52 Dose: Not Given Sodium Chloride (Normal Saline) 1,000 mls @ 125 mls/hr IV STAT [facility] Last Admin: 03/01/17 11:15 Dose: 999 mls/hr Piperacillin Sod/Tazobactam (Sod 2.25 gm/ Sodium Chloride) 50 mls @ 100 mls/hr IV ONETIME ONE Stop: 03/01/17 12:00 Last Admin: 03/01/17 11:36 Dose: 100 mls/hr Vancomycin HCl 1 gm/ Sodium (Chloride) 250 mls @ 250 mls/hr IV ONETIME ONE Stop: 03/01/17 12:31 Last Admin: 03/01/17 11:45 Dose: 250 mls/hr Sodium Chloride (Normal Saline) 1,000 mls @ 125 mls/hr IV STAT [facility] Last Admin: 03/01/17 11:50 Dose: 125 mls/hr Sodium Chloride (Normal Saline) 500 mls @ 999 mls/hr IV .Bolus ONE Stop: 03/01/17 12:55 Last Admin: 03/01/17 12:32 Dose: 999 mls/hr Sodium Chloride (Normal Saline) 1,000 mls @ 200 mls/hr IV ASDIRECTED [facility] Last Admin: 03/01/17 23:15 Dose: 200 mls/hr Levofloxacin/Dextrose 750 mg/ (Premix) 150 mls @ 100 mls/hr IV Q24H [facility] Last Admin: 03/01/17 15:26 Dose: Not Given Piperacillin Sod/Tazobactam (Sod 4.5 gm/ Sodium Chloride) 100 mls @ 100 mls/hr IV Q6H [facility] Last Admin: 03/01/17 15:26 Dose: Not Given Vancomycin HCl 0.5 gm/ Sodium (Chloride) 100 mls @ 200 mls/hr IV 03/01/17@1330 [facility] Stop: 03/01/17 13:59 Last Admin: 03/01/17 13:50 Dose: 200 mls/hr Levofloxacin/Dextrose 750 mg/ (Premix) 150 mls @ 100 mls/hr IV Q24H [facility] Stop: 03/01/17 15:29 Levofloxacin/Dextrose 500 mg/ (Premix) 100 mls @ 100 mls/hr IV Q48H [facility] Piperacillin Sod/Tazobactam (Sod 2.25 gm/ Sodium Chloride) 50 mls @ 50 mls/hr IV Q6H [facility] Last Admin: 03/01/17 15:26 Dose: Not Given Piperacillin Sod/Tazobactam (Sod 2.25 gm/ Sodium Chloride) 50 mls @ 50 mls/hr IV Q6H [facility] Vancomycin HCl 1,500 mg/ (Sodium Chloride) 500 mls @ 500 mls/hr IV Q24H [facility] Ceftriaxone Sodium/Dextrose 2 (gm/ Premix) 50 mls @ 100 mls/hr IV Q24H [facility] Last Admin: 03/02/17 13:13 Dose: 100 mls/hr Magnesium Sulfate 4 gm/ Premix 100 mls @ 50 mls/hr IV ONETIME ONE Stop: 03/01/17 21:17 Last Admin: 03/01/17 19:32 Dose: 50 mls/hr Sodium Chloride (Normal Saline) 500 mls @ 999 mls/hr IV .BOLUS [facility] Last Admin: 03/02/17 01:13 Dose: 999 mls/hr Sodium Chloride (Normal Saline) 1,000 mls @ 100 mls/hr IV ASDIRECTED [facility] Last Admin: 03/02/17 15:56 Dose: 100 mls/hr Vancomycin HCl 1,500 mg/ (Sodium Chloride) 500 mls @ 333.333 mls/hr IV Q24H [facility] Last Admin: 03/03/17 08:10 Dose: 333.333 mls/hr Vancomycin HCl 250 mg/ Sodium (Chloride) 100 mls @ 200 mls/hr IV ONETIME ONE Stop: 03/03/17 10:29 Vancomycin HCl 500 mg/ Sodium (Chloride) 100 mls @ 100 mls/hr IV ONETIME ONE Stop: 03/03/17 10:59 Vancomycin HCl 500 mg/ Sodium (Chloride) 100 mls @ 100 mls/hr IV ONETIME ONE Stop: 03/03/17 10:59 Last Admin: 03/03/17 10:39 Dose: 100 mls/hr Magnesium Sulfate 2 gm/ Premix 50 mls @ 25 mls/hr IV ONETIME ONE Stop: 03/04/17 08:21 Last Admin: 03/04/17 06:51 Dose: 25 mls/hr Insulin Aspart (Novolog) 0 unit SUBCUT TIDAC [facility] PRN Reason: Protocol Last Admin: 03/01/17 17:02 Dose: 2 units Insulin Aspart (Novolog) 0 - 10 unit SUBCUT QID [facility] PRN Reason: Protocol Lidocaine (Xylocaine-Mpf 2%) Confirm Administered Dose 5 ml .ROUTE .STK-MED ONE Stop: 03/01/17 14:20 Last Admin: 03/01/17 15:02 Dose: 5 ml Methylprednisolone Sodium Succinate (Solu-Medrol) 125 mg IVPUSH ONETIME ONE Stop: 03/01/17 11:05 Last Admin: 03/01/17 11:33 Dose: 125 mg Morphine Sulfate (Morphine) 2 mg IVPUSH Q2H PRN PRN Reason: Pain (severe 7-10) Stop: 03/02/17 12:40 Ondansetron HCl (Zofran) 8 mg IVPUSH ONETIME ONE Stop: 03/01/17 11:08 Last Admin: 03/01/17 11:33 Dose: 8 mg Potassium Chloride (Klor-Con M20) 20 meq PO ONETIME ONE Stop: 03/02/17 07:01 Last Admin: 03/02/17 07:26 Dose: 20 meq Potassium Chloride (Klor-Con M20) 40 meq PO ONETIME ONE Stop: 03/04/17 06:24 Last Admin: 03/04/17 06:51 Dose: 40 meq Vancomycin HCl (Pharmacy To Dose - Vancomycin) 1 dose .XX ASDIRECTED [facility] Wound Care/Dressing Products (Duoderm Cgf) 1 each TOP ASDIRECTED ONE Stop: 03/02/17 23:27 Last Admin: 03/02/17 23:47 Dose: 1 each - Exam Quality Assessment: Supplemental Oxygen (4L O2) General: Alert, Oriented HEENT: Pupils Equal, Pupils Reactive Neck: Supple, No JVD Lungs: Decreased Breath Sounds, Crackles, Rales, Wheezing GI/Abdominal Exam: Normal Bowel Sounds, Soft, Non-Tender Back Exam: Normal Inspection Extremities: Normal Inspection, No Pedal Edema Peripheral Pulses: 2+: Radial (L), Radial (R) Skin: Intact Neurological: No New Focal Deficit Psy/Mental Status: Alert, Normal Affect, Normal Mood - Problem List Review Problem List Initiated/Reviewed/Updated: Yes - Plan Plan:: 82 yo male with pmh of CHF, Htn, 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, Insulin-dependent DMII and gout admitted 03/01/17 to ICU for Sepsis secondary to MRSA Pneumonia #Sepsis, secondary to MRSA pneumonia -Blood culture and sputum culture positive for MRSA -currently on Vancomycin -Leukocytosis and hypoxia still present but improving Plan: -resume Vancomycin f/u on repeat blood cultures obtained yesterday #MRSA Pneumonia -plan as per above #Hypoxia, secondary to above -currently on 6L O2 -plan to wean down O2 as tolerated #MINDY, corrected -Cr level normalized -continue to monitor #electrolyte abnormalities -K, Mg, PO4 corrected -monitor #Hx of TIA -Patient will be on Heparin for VTE proph and will hold home aspirn #DMII -ISS medium dose VTE: Heparin, SCD
--- NOTE | 2017-03-04 15:54 | CR ---
EXAM DATE: 03/01/17 PATIENT'S AGE: 82 Patient: CHEMO MCFARLANE Facility: [place], [place] Site . Site : [id number] Study: XRay Chest [id number]/28/2017 10:21:17 PM Ordering Physician: Robb Lancaster Final Report: INDICATION: Tachypnea, desaturation TECHNIQUE: Chest radiograph 1 view COMPARISON: 03/01/2017 FINDINGS: Mediastinum: The heart silhouette is normal in size and morphology. The mediastinum is normal in appearance. Lungs: Coarse interstitial infiltrates and subpleural infiltrates are noted bilaterally without interval change, likely due to interstitial lung disease. No sign of pleural effusion seen. No pneumothorax is identified. Bones and soft tissue: Unremarkable for age. IMPRESSION: 1. Coarse interstitial infiltrates and subpleural infiltrates are noted bilaterally without interval change, likely due to interstitial lung disease. Dictated by Juan Manuel Currie MD @ 03/03/2017 10:34:59 PM Dictated by: Juan Manuel Currie MD @ 03/03/2017 22:37:07 (Electronic Signature) Report Signed by Proxy. [facility]
[2017-03-04] MEDS ORDERED: Potassium Phosphates 30 MMOLE in Sodium Chloride 0.9% 250 ML IV ONE (16:00)
--- NOTE | 2017-03-04 18:10 | ECHO ---
The echocardiogram report can be seen in this patient's EMR (electronic medical record) in the Report section. The report has also been scanned into PACS and can be seen there. [facility]
[2017-03-04] MEDS: Hydrocolloid Dressing 4x4 Bandage TOP PRN ×2 (19:00→20:39)
[2017-03-05] MEDS: Albuterol/Ipratropium 3.0-0.5 MG/3 ML Neb Soln NEB SCH ×6 (01:49→21:02)
[2017-03-05] MEDS: Heparin Sodium 5,000 Units/ML Vial SUBCUT SCH ×3 (06:08→21:18)
[2017-03-05] MEDS: Insulin Aspart 100 Units/ML 3 ML Pen SUBCUT SCH ×4 (06:36→21:17)
[2017-03-05] MEDS: Furosemide 40 MG/4 ML VIAL IVPUSH SCH (08:07)
[2017-03-05] MEDS: Nicotine 7 MG/24 Hr Patch TRDERM SCH (08:10)
--- NOTE | 2017-03-05 19:40 | PCM.PN ---
- Review of Systems Systems Review Comment:: feeling better, cough and shortness of breath improving - Patient Data Vitals - Most Recent: Last Vital Signs Temp 36.4 C 03/05/17 16:00 Pulse 104 H 03/05/17 18:00 Resp 34 H 03/05/17 18:00 BP 120/66 03/05/17 18:00 Pulse Ox 91 L 03/05/17 18:00 Weight - Most Recent: 95 kg I&O - Last 24 Hours: Intake & Output 03/05/17 03/05/17 03/05/17 06:59 14:59 22:59 Intake Total 900 1000 900 Output Total 3050 1550 850 Balance -2150 -550 50 Lab Results Last 24 Hours: Laboratory Results - last 24 hr 03/04/17 03/05/17 03/05/17 Range/Units 20:49 04:49 04:49 WBC 18.89 H (4.0-11.0) K/uL RBC 4.88 (4.50-5.90) M/uL Hgb 14.2 (13.0-17.0) g/dL Hct 41.3 (38.0-50.0) % MCV 84.6 (80.0-98.0) fL MCH 29.1 (27.0-32.0) pg MCHC 34.4 (31.0-37.0) g/dL RDW Std Deviation 45.1 (28.0-62.0) fl RDW Coeff of Tanisha 15 (11.0-15.0) % Plt Count 158 (150-400) K/uL MPV 13.40 H (7.40-12.00) fL Add Manual Diff YES Neutrophils % (Manual) 83 H (48.0-80.0) % Band Neutrophils % 2 % Lymphocytes % (Manual) 11 L (16.0-40.0) % Monocytes % (Manual) 4 (0.0-15.0) % Nucleated RBC % 0.0 /100WBC Absolute Seg Neuts 15.7 H (1.4-5.7) Band Neutrophils # 0.4 Lymphocytes # (Manual) 2.1 (0.6-2.4) Monocytes # (Manual) 0.8 (0.0-0.8) Nucleated RBCs # 0 K/uL Sodium 143 (136-146) mmol/L Potassium 3.9 (3.5-5.1) mmol/L Chloride 110 (98-110) mmol/L Carbon Dioxide 19 L (21-31) mmol/L BUN 36 H (6.0-23.0) mg/dL Creatinine 1.2 (0.6-1.5) mg/dL Est Cr Clr Drug Dosing 50.69 mL/min Estimated GFR (MDRD) 58.3 ml/min Glucose 184 H (60-110) mg/dL POC Glucose 220 H (60-110) mg/dL Calcium 8.8 (8.8-10.8) mg/dL Phosphorus 3.6 (2.4-4.7) mg/dL Magnesium 1.7 (1.5-2.3) mEq/L Total Bilirubin 0.8 (0.1-1.5) mg/dL AST 36 (5-40) IU/L ALT 26 (8-54) IU/L Alkaline Phosphatase 137 (40-150) Total Protein 6.5 (6.0-8.0) g/dL Albumin 2.8 L (3.4-4.8) g/dL Globulin 3.7 H (2.0-3.5) g/dL Albumin/Globulin Ratio 0.8 L (1.3-2.8) 03/05/17 03/05/17 03/05/17 Range/Units 06:24 11:24 16:54 WBC (4.0-11.0) K/uL RBC (4.50-5.90) M/uL Hgb (13.0-17.0) g/dL Hct (38.0-50.0) % MCV (80.0-98.0) fL MCH (27.0-32.0) pg MCHC (31.0-37.0) g/dL RDW Std Deviation (28.0-62.0) fl RDW Coeff of Tanisha (11.0-15.0) % Plt Count (150-400) K/uL MPV (7.40-12.00) fL Add Manual Diff Neutrophils % (Manual) (48.0-80.0) % Band Neutrophils % % Lymphocytes % (Manual) (16.0-40.0) % Monocytes % (Manual) (0.0-15.0) % Nucleated RBC % /100WBC Absolute Seg Neuts (1.4-5.7) Band Neutrophils # Lymphocytes # (Manual) (0.6-2.4) Monocytes # (Manual) (0.0-0.8) Nucleated RBCs # K/uL Sodium (136-146) mmol/L Potassium (3.5-5.1) mmol/L Chloride (98-110) mmol/L Carbon Dioxide (21-31) mmol/L BUN (6.0-23.0) mg/dL Creatinine (0.6-1.5) mg/dL Est Cr Clr Drug Dosing mL/min Estimated GFR (MDRD) ml/min Glucose (60-110) mg/dL POC Glucose 170 H 252 H 196 H (60-110) mg/dL Calcium (8.8-10.8) mg/dL Phosphorus (2.4-4.7) mg/dL Magnesium (1.5-2.3) mEq/L Total Bilirubin (0.1-1.5) mg/dL AST (5-40) IU/L ALT (8-54) IU/L Alkaline Phosphatase (40-150) Total Protein (6.0-8.0) g/dL Albumin (3.4-4.8) g/dL Globulin (2.0-3.5) g/dL Albumin/Globulin Ratio (1.3-2.8) Jc Results Last 24 Hours: Microbiology 03/03/17 13:50 Aerobic Blood Culture - Preliminary Blood - Venous Anaerobic Blood Culture - Preliminary NO GROWTH AFTER 2 DAYS Med Orders - Current: Current Medications Acetaminophen (Tylenol) 650 mg PO Q4H PRN PRN Reason: Pain (Mild 1-3)/fever Albuterol/Ipratropium (Duoneb 3.0-0.5 Mg/3 Ml) 3 ml NEB Q4HRRT [facility] Last Admin: 03/05/17 17:29 Dose: 3 ml Furosemide (Lasix) 40 mg IVPUSH DAILY [facility] Last Admin: 03/05/17 08:07 Dose: 40 mg Heparin Sodium (Porcine) (Heparin Sodium) 5,000 units SUBCUT Q8H [facility] Last Admin: 03/05/17 14:34 Dose: 5,000 units Vancomycin HCl 2,000 mg/ (Sodium Chloride) 500 mls @ 250 mls/hr IV Q24H [facility] Last Admin: 03/05/17 07:44 Dose: 250 mls/hr Insulin Aspart (Novolog) 0 unit SUBCUT ACBED [facility] PRN Reason: Protocol Last Admin: 03/05/17 16:55 Dose: 2 units Nicotine (Habitrol) 7 mg TRDERM DAILY [facility] Last Admin: 03/05/17 08:10 Dose: Not Given Ondansetron HCl (Zofran Odt) 4 mg PO Q4H PRN PRN Reason: nausea, able to take PO Ondansetron HCl (Zofran) 4 mg IVPUSH Q4H PRN PRN Reason: Nausea Oxycodone HCl (Oxycodone) 5 mg PO Q4H PRN PRN Reason: Pain (moderate 4-6) Polyethylene Glycol (Miralax) 17 gm PO DAILY PRN PRN Reason: Constipation Vancomycin HCl (Pharmacy To Dose - Vancomycin) 1 dose .XX ASDIRECTED [facility] Wound Care/Dressing Products (Duoderm Cgf) 1 each TOP ASDIRECTED PRN PRN Reason: Ulcer on coccyx Last Admin: 03/04/17 20:39 Dose: 1 each Discontinued Medications Albuterol/Ipratropium (Duoneb 3.0-0.5 Mg/3 Ml) 3 ml NEB ONETIME ONE Stop: 03/01/17 11:05 Last Admin: 03/01/17 11:34 Dose: 3 ml Doxycycline Hyclate (Vibramycin) 100 mg PO Q12HR [facility] Last Admin: 03/03/17 08:11 Dose: 100 mg Furosemide (Lasix) 40 mg IVPUSH Q8H [facility] Last Admin: 03/04/17 00:32 Dose: 40 mg Furosemide (Lasix) 40 mg IVPUSH Q12H [facility] Last Admin: 03/04/17 20:19 Dose: 40 mg Heparin Sodium (Porcine) (Heparin Sodium) 5,000 units SUBCUT Q8H [facility] Last Admin: 03/01/17 21:52 Dose: Not Given Sodium Chloride (Normal Saline) 1,000 mls @ 125 mls/hr IV STAT [facility] Last Admin: 03/01/17 11:15 Dose: 999 mls/hr Piperacillin Sod/Tazobactam (Sod 2.25 gm/ Sodium Chloride) 50 mls @ 100 mls/hr IV ONETIME ONE Stop: 03/01/17 12:00 Last Admin: 03/01/17 11:36 Dose: 100 mls/hr Vancomycin HCl 1 gm/ Sodium (Chloride) 250 mls @ 250 mls/hr IV ONETIME ONE Stop: 03/01/17 12:31 Last Admin: 03/01/17 11:45 Dose: 250 mls/hr Sodium Chloride (Normal Saline) 1,000 mls @ 125 mls/hr IV STAT [facility] Last Admin: 03/01/17 11:50 Dose: 125 mls/hr Sodium Chloride (Normal Saline) 500 mls @ 999 mls/hr IV .Bolus ONE Stop: 03/01/17 12:55 Last Admin: 03/01/17 12:32 Dose: 999 mls/hr Sodium Chloride (Normal Saline) 1,000 mls @ 200 mls/hr IV ASDIRECTED [facility] Last Admin: 03/01/17 23:15 Dose: 200 mls/hr Levofloxacin/Dextrose 750 mg/ (Premix) 150 mls @ 100 mls/hr IV Q24H [facility] Last Admin: 03/01/17 15:26 Dose: Not Given Piperacillin Sod/Tazobactam (Sod 4.5 gm/ Sodium Chloride) 100 mls @ 100 mls/hr IV Q6H [facility] Last Admin: 03/01/17 15:26 Dose: Not Given Vancomycin HCl 0.5 gm/ Sodium (Chloride) 100 mls @ 200 mls/hr IV 03/01/17@1330 [facility] Stop: 03/01/17 13:59 Last Admin: 03/01/17 13:50 Dose: 200 mls/hr Levofloxacin/Dextrose 750 mg/ (Premix) 150 mls @ 100 mls/hr IV Q24H [facility] Stop: 03/01/17 15:29 Levofloxacin/Dextrose 500 mg/ (Premix) 100 mls @ 100 mls/hr IV Q48H [facility] Piperacillin Sod/Tazobactam (Sod 2.25 gm/ Sodium Chloride) 50 mls @ 50 mls/hr IV Q6H [facility] Last Admin: 03/01/17 15:26 Dose: Not Given Piperacillin Sod/Tazobactam (Sod 2.25 gm/ Sodium Chloride) 50 mls @ 50 mls/hr IV Q6H [facility] Vancomycin HCl 1,500 mg/ (Sodium Chloride) 500 mls @ 500 mls/hr IV Q24H [facility] Ceftriaxone Sodium/Dextrose 2 (gm/ Premix) 50 mls @ 100 mls/hr IV Q24H [facility] Last Admin: 03/02/17 13:13 Dose: 100 mls/hr Magnesium Sulfate 4 gm/ Premix 100 mls @ 50 mls/hr IV ONETIME ONE Stop: 03/01/17 21:17 Last Admin: 03/01/17 19:32 Dose: 50 mls/hr Sodium Chloride (Normal Saline) 500 mls @ 999 mls/hr IV .BOLUS [facility] Last Admin: 03/02/17 01:13 Dose: 999 mls/hr Sodium Chloride (Normal Saline) 1,000 mls @ 100 mls/hr IV ASDIRECTED [facility] Last Admin: 03/02/17 15:56 Dose: 100 mls/hr Vancomycin HCl 1,500 mg/ (Sodium Chloride) 500 mls @ 333.333 mls/hr IV Q24H [facility] Last Admin: 03/03/17 08:10 Dose: 333.333 mls/hr Vancomycin HCl 250 mg/ Sodium (Chloride) 100 mls @ 200 mls/hr IV ONETIME ONE Stop: 03/03/17 10:29 Vancomycin HCl 500 mg/ Sodium (Chloride) 100 mls @ 100 mls/hr IV ONETIME ONE Stop: 03/03/17 10:59 Vancomycin HCl 500 mg/ Sodium (Chloride) 100 mls @ 100 mls/hr IV ONETIME ONE Stop: 03/03/17 10:59 Last Admin: 03/03/17 10:39 Dose: 100 mls/hr Magnesium Sulfate 2 gm/ Premix 50 mls @ 25 mls/hr IV ONETIME ONE Stop: 03/04/17 08:21 Last Admin: 03/04/17 06:51 Dose: 25 mls/hr Potassium Phosphate 30 mmole/ (Sodium Chloride) 510 mls @ 100 mls/hr IV NOW ONE Stop: 03/04/17 11:25 Last Admin: 03/04/17 07:55 Dose: 100 mls/hr Potassium Phosphate 30 mmole/ (Sodium Chloride) 260 mls @ 86.667 mls/hr IV NOW ONE Stop: 03/04/17 18:59 Last Admin: 03/04/17 17:28 Dose: 86.667 mls/hr Magnesium Sulfate 2 gm/ Premix 50 mls @ 50 mls/hr IV ONETIME ONE Stop: 03/04/17 16:59 Last Admin: 03/04/17 16:18 Dose: 50 mls/hr Insulin Aspart (Novolog) 0 unit SUBCUT TIDAC [facility] PRN Reason: Protocol Last Admin: 03/01/17 17:02 Dose: 2 units Insulin Aspart (Novolog) 0 - 10 unit SUBCUT QID [facility] PRN Reason: Protocol Lidocaine (Xylocaine-Mpf 2%) Confirm Administered Dose 5 ml .ROUTE .STK-MED ONE Stop: 03/01/17 14:20 Last Admin: 03/01/17 15:02 Dose: 5 ml Methylprednisolone Sodium Succinate (Solu-Medrol) 125 mg IVPUSH ONETIME ONE Stop: 03/01/17 11:05 Last Admin: 03/01/17 11:33 Dose: 125 mg Morphine Sulfate (Morphine) 2 mg IVPUSH Q2H PRN PRN Reason: Pain (severe 7-10) Stop: 03/02/17 12:40 Ondansetron HCl (Zofran) 8 mg IVPUSH ONETIME ONE Stop: 03/01/17 11:08 Last Admin: 03/01/17 11:33 Dose: 8 mg Potassium Chloride (Klor-Con M20) 20 meq PO ONETIME ONE Stop: 03/02/17 07:01 Last Admin: 03/02/17 07:26 Dose: 20 meq Potassium Chloride (Klor-Con M20) 40 meq PO ONETIME ONE Stop: 03/04/17 06:24 Last Admin: 03/04/17 06:51 Dose: 40 meq Vancomycin HCl (Pharmacy To Dose - Vancomycin) 1 dose .XX ASDIRECTED [facility] Wound Care/Dressing Products (Duoderm Cgf) 1 each TOP ASDIRECTED ONE Stop: 03/02/17 23:27 Last Admin: 03/02/17 23:47 Dose: 1 each - Exam General: Alert, Oriented Lungs: Clear to Auscultation, Normal Respiratory Effort Cardiovascular: Regular Rate, Regular Rhythm GI/Abdominal Exam: Soft, Non-Tender Extremities: Pedal Edema (mild) Skin: Warm, Dry, Intact - Problem List Review Problem List Initiated/Reviewed/Updated: Yes - My Orders Last 24 Hours: My Active Orders 03/05/17 14:39 Abdomen Pelvis wo Cont [CT] Routine Chest wo Cont [CT] Routine - Plan Plan:: 82 yo male with pmh of CHF, Htn, 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 Repeat blood cultures on positive for gram positive cocci. Clinically patient is improving. Spoke with eICU and will continue vancomycin pending speciation of cultures, will repeat cultures till negative. CT chest reports diffuse bilateral patchy ground glass effusion , no loculate effusions or abscess noted. MINDY:, corrected -Cr level normalized -continue to monitor #Hx of TIA -Patient will be on Heparin for VTE proph and will hold home aspirn #DMII -ISS medium dose VTE: Heparin, SCD
[2017-03-06] MEDS: Albuterol/Ipratropium 3.0-0.5 MG/3 ML Neb Soln NEB SCH ×6 (01:26→21:04)
[2017-03-06] MEDS: Heparin Sodium 5,000 Units/ML Vial SUBCUT SCH ×3 (05:58→21:00)
[2017-03-06] MEDS: Insulin Aspart 100 Units/ML 3 ML Pen SUBCUT SCH ×4 (06:49→20:59)
[2017-03-06] MEDS: Nicotine 7 MG/24 Hr Patch TRDERM SCH (08:01)
[2017-03-06] MEDS: Furosemide 40 MG/4 ML VIAL IVPUSH SCH (08:02)
--- NOTE | 2017-03-06 11:16 | PCM.PN ---
- Review of Systems Systems Review Comment:: feeling well, shortness of breath with exertion - Patient Data Vitals - Most Recent: Last Vital Signs Temp 36.8 C 03/06/17 08:00 Pulse 91 03/06/17 09:00 Resp 19 03/06/17 09:00 BP 136/74 03/06/17 09:00 Pulse Ox 88 L 03/06/17 09:00 Weight - Most Recent: 89.6 kg I&O - Last 24 Hours: Intake & Output 03/05/17 03/06/17 03/06/17 22:59 06:59 14:59 Intake Total 900 150 500 Output Total 850 410 Balance 50 -260 500 Lab Results Last 24 Hours: Laboratory Results - last 24 hr 03/05/17 03/05/17 03/05/17 Range/Units 11:24 16:54 20:03 WBC (4.0-11.0) K/uL RBC (4.50-5.90) M/uL Hgb (13.0-17.0) g/dL Hct (38.0-50.0) % MCV (80.0-98.0) fL MCH (27.0-32.0) pg MCHC (31.0-37.0) g/dL RDW Std Deviation (28.0-62.0) fl RDW Coeff of Tanisha (11.0-15.0) % Plt Count (150-400) K/uL MPV (7.40-12.00) fL Add Manual Diff Neutrophils % (Manual) (48.0-80.0) % Band Neutrophils % % Lymphocytes % (Manual) (16.0-40.0) % Monocytes % (Manual) (0.0-15.0) % Eosinophils % (Manual) (0.0-7.0) % Nucleated RBC % /100WBC Absolute Seg Neuts (1.4-5.7) Band Neutrophils # Lymphocytes # (Manual) (0.6-2.4) Monocytes # (Manual) (0.0-0.8) Eosinophils # (Manual) (0.0-0.7) Nucleated RBCs # K/uL Sodium (136-146) mmol/L Potassium (3.5-5.1) mmol/L Chloride (98-110) mmol/L Carbon Dioxide (21-31) mmol/L BUN (6.0-23.0) mg/dL Creatinine (0.6-1.5) mg/dL Est Cr Clr Drug Dosing mL/min Estimated GFR (MDRD) ml/min Glucose (60-110) mg/dL POC Glucose 252 H 196 H 260 H (60-110) mg/dL Calcium (8.8-10.8) mg/dL Vancomycin Trough (5-15) ug/mL 03/06/17 03/06/17 03/06/17 Range/Units 06:47 07:15 07:15 WBC 14.38 H (4.0-11.0) K/uL RBC 4.69 (4.50-5.90) M/uL Hgb 13.6 (13.0-17.0) g/dL Hct 40.9 (38.0-50.0) % MCV 87.2 (80.0-98.0) fL MCH 29.0 (27.0-32.0) pg MCHC 33.3 (31.0-37.0) g/dL RDW Std Deviation 46.8 (28.0-62.0) fl RDW Coeff of Tanisha 15 (11.0-15.0) % Plt Count 143 L (150-400) K/uL MPV 12.80 H (7.40-12.00) fL Add Manual Diff YES Neutrophils % (Manual) 83 H (48.0-80.0) % Band Neutrophils % 1 % Lymphocytes % (Manual) 11 L (16.0-40.0) % Monocytes % (Manual) 4 (0.0-15.0) % Eosinophils % (Manual) 1 (0.0-7.0) % Nucleated RBC % 0.0 /100WBC Absolute Seg Neuts 11.9 H (1.4-5.7) Band Neutrophils # 0.1 Lymphocytes # (Manual) 1.6 (0.6-2.4) Monocytes # (Manual) 0.6 (0.0-0.8) Eosinophils # (Manual) 0.1 (0.0-0.7) Nucleated RBCs # 0 K/uL Sodium (136-146) mmol/L Potassium (3.5-5.1) mmol/L Chloride (98-110) mmol/L Carbon Dioxide (21-31) mmol/L BUN (6.0-23.0) mg/dL Creatinine (0.6-1.5) mg/dL Est Cr Clr Drug Dosing mL/min Estimated GFR (MDRD) ml/min Glucose (60-110) mg/dL POC Glucose 162 H (60-110) mg/dL Calcium (8.8-10.8) mg/dL Vancomycin Trough 17.9 H (5-15) ug/mL 03/06/17 03/06/17 Range/Units 07:15 10:39 WBC (4.0-11.0) K/uL RBC (4.50-5.90) M/uL Hgb (13.0-17.0) g/dL Hct (38.0-50.0) % MCV (80.0-98.0) fL MCH (27.0-32.0) pg MCHC (31.0-37.0) g/dL RDW Std Deviation (28.0-62.0) fl RDW Coeff of Tanisha (11.0-15.0) % Plt Count (150-400) K/uL MPV (7.40-12.00) fL Add Manual Diff Neutrophils % (Manual) (48.0-80.0) % Band Neutrophils % % Lymphocytes % (Manual) (16.0-40.0) % Monocytes % (Manual) (0.0-15.0) % Eosinophils % (Manual) (0.0-7.0) % Nucleated RBC % /100WBC Absolute Seg Neuts (1.4-5.7) Band Neutrophils # Lymphocytes # (Manual) (0.6-2.4) Monocytes # (Manual) (0.0-0.8) Eosinophils # (Manual) (0.0-0.7) Nucleated RBCs # K/uL Sodium 142 (136-146) mmol/L Potassium 3.9 (3.5-5.1) mmol/L Chloride 109 (98-110) mmol/L Carbon Dioxide 24 (21-31) mmol/L BUN 32 H (6.0-23.0) mg/dL Creatinine 1.2 (0.6-1.5) mg/dL Est Cr Clr Drug Dosing 50.82 mL/min Estimated GFR (MDRD) 58.3 ml/min Glucose 183 H (60-110) mg/dL POC Glucose 189 H (60-110) mg/dL Calcium 8.2 L (8.8-10.8) mg/dL Vancomycin Trough (5-15) ug/mL Jc Results Last 24 Hours: Microbiology 03/03/17 13:50 Aerobic Blood Culture - Preliminary Blood - Venous Anaerobic Blood Culture - Preliminary NO GROWTH AFTER 2 DAYS Med Orders - Current: Current Medications Acetaminophen (Tylenol) 650 mg PO Q4H PRN PRN Reason: Pain (Mild 1-3)/fever Albuterol/Ipratropium (Duoneb 3.0-0.5 Mg/3 Ml) 3 ml NEB Q4HRRT [facility] Last Admin: 03/06/17 10:10 Dose: 3 ml Furosemide (Lasix) 40 mg IVPUSH DAILY [facility] Last Admin: 03/06/17 08:02 Dose: 40 mg Heparin Sodium (Porcine) (Heparin Sodium) 5,000 units SUBCUT Q8H [facility] Last Admin: 03/06/17 05:58 Dose: 5,000 units Vancomycin HCl 2,000 mg/ (Sodium Chloride) 500 mls @ 250 mls/hr IV Q24H [facility] Last Admin: 03/06/17 07:54 Dose: 250 mls/hr Insulin Aspart (Novolog) 0 unit SUBCUT ACBED [facility] PRN Reason: Protocol Last Admin: 03/06/17 10:40 Dose: 2 units Nicotine (Habitrol) 7 mg TRDERM DAILY [facility] Last Admin: 03/06/17 08:01 Dose: Not Given Ondansetron HCl (Zofran Odt) 4 mg PO Q4H PRN PRN Reason: nausea, able to take PO Ondansetron HCl (Zofran) 4 mg IVPUSH Q4H PRN PRN Reason: Nausea Oxycodone HCl (Oxycodone) 5 mg PO Q4H PRN PRN Reason: Pain (moderate 4-6) Polyethylene Glycol (Miralax) 17 gm PO DAILY PRN PRN Reason: Constipation Vancomycin HCl (Pharmacy To Dose - Vancomycin) 1 dose .XX ASDIRECTED [facility] Wound Care/Dressing Products (Duoderm Cgf) 1 each TOP ASDIRECTED PRN PRN Reason: Ulcer on coccyx Last Admin: 03/04/17 20:39 Dose: 1 each Discontinued Medications Albuterol/Ipratropium (Duoneb 3.0-0.5 Mg/3 Ml) 3 ml NEB ONETIME ONE Stop: 03/01/17 11:05 Last Admin: 03/01/17 11:34 Dose: 3 ml Doxycycline Hyclate (Vibramycin) 100 mg PO Q12HR [facility] Last Admin: 03/03/17 08:11 Dose: 100 mg Furosemide (Lasix) 40 mg IVPUSH Q8H [facility] Last Admin: 03/04/17 00:32 Dose: 40 mg Furosemide (Lasix) 40 mg IVPUSH Q12H [facility] Last Admin: 03/04/17 20:19 Dose: 40 mg Heparin Sodium (Porcine) (Heparin Sodium) 5,000 units SUBCUT Q8H [facility] Last Admin: 03/01/17 21:52 Dose: Not Given Sodium Chloride (Normal Saline) 1,000 mls @ 125 mls/hr IV STAT [facility] Last Admin: 03/01/17 11:15 Dose: 999 mls/hr Piperacillin Sod/Tazobactam (Sod 2.25 gm/ Sodium Chloride) 50 mls @ 100 mls/hr IV ONETIME ONE Stop: 03/01/17 12:00 Last Admin: 03/01/17 11:36 Dose: 100 mls/hr Vancomycin HCl 1 gm/ Sodium (Chloride) 250 mls @ 250 mls/hr IV ONETIME ONE Stop: 03/01/17 12:31 Last Admin: 03/01/17 11:45 Dose: 250 mls/hr Sodium Chloride (Normal Saline) 1,000 mls @ 125 mls/hr IV STAT [facility] Last Admin: 03/01/17 11:50 Dose: 125 mls/hr Sodium Chloride (Normal Saline) 500 mls @ 999 mls/hr IV .Bolus ONE Stop: 03/01/17 12:55 Last Admin: 03/01/17 12:32 Dose: 999 mls/hr Sodium Chloride (Normal Saline) 1,000 mls @ 200 mls/hr IV ASDIRECTED [facility] Last Admin: 03/01/17 23:15 Dose: 200 mls/hr Levofloxacin/Dextrose 750 mg/ (Premix) 150 mls @ 100 mls/hr IV Q24H [facility] Last Admin: 03/01/17 15:26 Dose: Not Given Piperacillin Sod/Tazobactam (Sod 4.5 gm/ Sodium Chloride) 100 mls @ 100 mls/hr IV Q6H [facility] Last Admin: 03/01/17 15:26 Dose: Not Given Vancomycin HCl 0.5 gm/ Sodium (Chloride) 100 mls @ 200 mls/hr IV 03/01/17@1330 [facility] Stop: 03/01/17 13:59 Last Admin: 03/01/17 13:50 Dose: 200 mls/hr Levofloxacin/Dextrose 750 mg/ (Premix) 150 mls @ 100 mls/hr IV Q24H [facility] Stop: 03/01/17 15:29 Levofloxacin/Dextrose 500 mg/ (Premix) 100 mls @ 100 mls/hr IV Q48H [facility] Piperacillin Sod/Tazobactam (Sod 2.25 gm/ Sodium Chloride) 50 mls @ 50 mls/hr IV Q6H [facility] Last Admin: 03/01/17 15:26 Dose: Not Given Piperacillin Sod/Tazobactam (Sod 2.25 gm/ Sodium Chloride) 50 mls @ 50 mls/hr IV Q6H [facility] Vancomycin HCl 1,500 mg/ (Sodium Chloride) 500 mls @ 500 mls/hr IV Q24H [facility] Ceftriaxone Sodium/Dextrose 2 (gm/ Premix) 50 mls @ 100 mls/hr IV Q24H [facility] Last Admin: 03/02/17 13:13 Dose: 100 mls/hr Magnesium Sulfate 4 gm/ Premix 100 mls @ 50 mls/hr IV ONETIME ONE Stop: 03/01/17 21:17 Last Admin: 03/01/17 19:32 Dose: 50 mls/hr Sodium Chloride (Normal Saline) 500 mls @ 999 mls/hr IV .BOLUS [facility] Last Admin: 03/02/17 01:13 Dose: 999 mls/hr Sodium Chloride (Normal Saline) 1,000 mls @ 100 mls/hr IV ASDIRECTED [facility] Last Admin: 03/02/17 15:56 Dose: 100 mls/hr Vancomycin HCl 1,500 mg/ (Sodium Chloride) 500 mls @ 333.333 mls/hr IV Q24H [facility] Last Admin: 03/03/17 08:10 Dose: 333.333 mls/hr Vancomycin HCl 250 mg/ Sodium (Chloride) 100 mls @ 200 mls/hr IV ONETIME ONE Stop: 03/03/17 10:29 Vancomycin HCl 500 mg/ Sodium (Chloride) 100 mls @ 100 mls/hr IV ONETIME ONE Stop: 12/28/17 10:59 Vancomycin HCl 500 mg/ Sodium (Chloride) 100 mls @ 100 mls/hr IV ONETIME ONE Stop: 03/03/17 10:59 Last Admin: 03/03/17 10:39 Dose: 100 mls/hr Magnesium Sulfate 2 gm/ Premix 50 mls @ 25 mls/hr IV ONETIME ONE Stop: 03/04/17 08:21 Last Admin: 03/04/17 06:51 Dose: 25 mls/hr Potassium Phosphate 30 mmole/ (Sodium Chloride) 510 mls @ 100 mls/hr IV NOW ONE Stop: 03/04/17 11:25 Last Admin: 03/04/17 07:55 Dose: 100 mls/hr Potassium Phosphate 30 mmole/ (Sodium Chloride) 260 mls @ 86.667 mls/hr IV NOW ONE Stop: 03/04/17 18:59 Last Admin: 03/04/17 17:28 Dose: 86.667 mls/hr Magnesium Sulfate 2 gm/ Premix 50 mls @ 50 mls/hr IV ONETIME ONE Stop: 03/04/17 16:59 Last Admin: 03/04/17 16:18 Dose: 50 mls/hr Insulin Aspart (Novolog) 0 unit SUBCUT TIDAC RAUL PRN Reason: Protocol Last Admin: 03/01/17 17:02 Dose: 2 units Insulin Aspart (Novolog) 0 - 10 unit SUBCUT QID RAUL PRN Reason: Protocol Lidocaine (Xylocaine-Mpf 2%) Confirm Administered Dose 5 ml .ROUTE .STK-MED ONE Stop: 03/01/17 14:20 Last Admin: 03/01/17 15:02 Dose: 5 ml Methylprednisolone Sodium Succinate (Solu-Medrol) 125 mg IVPUSH ONETIME ONE Stop: 03/01/17 11:05 Last Admin: 03/01/17 11:33 Dose: 125 mg Morphine Sulfate (Morphine) 2 mg IVPUSH Q2H PRN PRN Reason: Pain (severe 7-10) Stop: 03/02/17 12:40 Ondansetron HCl (Zofran) 8 mg IVPUSH ONETIME ONE Stop: 03/01/17 11:08 Last Admin: 03/01/17 11:33 Dose: 8 mg Potassium Chloride (Klor-Con M20) 20 meq PO ONETIME ONE Stop: 03/02/17 07:01 Last Admin: 03/02/17 07:26 Dose: 20 meq Potassium Chloride (Klor-Con M20) 40 meq PO ONETIME ONE Stop: 03/04/17 06:24 Last Admin: 03/04/17 06:51 Dose: 40 meq Vancomycin HCl (Pharmacy To Dose - Vancomycin) 1 dose .XX ASDIRECTED [facility] Wound Care/Dressing Products (Duoderm Cgf) 1 each TOP ASDIRECTED ONE Stop: 03/02/17 23:27 Last Admin: 03/02/17 23:47 Dose: 1 each - Exam General: Alert, Oriented Lungs: Rhonchi Cardiovascular: Regular Rate, Regular Rhythm GI/Abdominal Exam: Soft, Non-Tender Extremities: Pedal Edema (mild) Skin: Warm, Dry, Intact - Problem List Review Problem List Initiated/Reviewed/Updated: Yes - My Orders Last 24 Hours: My Active Orders 03/07/17 05:11 BASIC METABOLIC PANEL,BMP [CHEM] AM CBC WITH AUTO DIFF [HEME] AM 03/08/17 05:11 BASIC METABOLIC PANEL,BMP [CHEM] AM CBC WITH AUTO DIFF [HEME] AM 03/09/17 05:11 BASIC METABOLIC PANEL,BMP [CHEM] AM CBC WITH AUTO DIFF [HEME] AM 03/05/17 14:39 Abdomen Pelvis wo Cont [CT] Routine Chest wo Cont [CT] Routine 03/06/17 11:08 Transfer Patient (Change bed) [ADT] Routine - Plan Plan:: 82 yo male with pmh of CHF, Htn, 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 continue vancomycin, awaiting speciation of repeat blood cultures. #DMII -ISS medium dose VTE: Heparin, SCD
[2017-03-07] MEDS: Albuterol/Ipratropium 3.0-0.5 MG/3 ML Neb Soln NEB SCH ×5 (02:16→17:48)
[2017-03-07] MEDS: Heparin Sodium 5,000 Units/ML Vial SUBCUT SCH ×3 (05:18→21:46)
[2017-03-07] MEDS: Insulin Aspart 100 Units/ML 3 ML Pen SUBCUT SCH ×4 (06:41→21:48)
[2017-03-07] MEDS: Furosemide 40 MG/4 ML VIAL IVPUSH SCH (08:16)
[2017-03-07] MEDS: Nicotine 7 MG/24 Hr Patch TRDERM SCH (08:16)
--- NOTE | 2017-03-07 16:10 | PCM.PN ---
- Review of Systems Systems Review Comment:: short of breath with exertion, but otherwise feels well and is wanting to go home when ready. - Patient Data Vitals - Most Recent: Last Vital Signs Temp 36.3 C 03/07/17 11:46 Pulse 107 H 03/07/17 11:46 Resp 18 03/07/17 11:46 BP 144/72 H 03/07/17 11:46 Pulse Ox 89 L 03/07/17 11:46 Weight - Most Recent: 90.2 kg I&O - Last 24 Hours: Intake & Output 03/07/17 03/07/17 03/07/17 06:59 14:59 22:59 Intake Total 100 650 200 Output Total 380 350 500 Balance -280 300 -300 Lab Results Last 24 Hours: Laboratory Results - last 24 hr 03/06/17 03/06/17 03/07/17 Range/Units 17:14 20:19 06:29 WBC (4.0-11.0) K/uL RBC (4.50-5.90) M/uL Hgb (13.0-17.0) g/dL Hct (38.0-50.0) % MCV (80.0-98.0) fL MCH (27.0-32.0) pg MCHC (31.0-37.0) g/dL RDW Std Deviation (28.0-62.0) fl RDW Coeff of Tanisha (11.0-15.0) % Plt Count (150-400) K/uL MPV (7.40-12.00) fL Neut % (Auto) (48.0-80.0) % Lymph % (Auto) (16.0-40.0) % Thomas % (Auto) (0.0-15.0) % Eos % (Auto) (0.0-7.0) % Baso % (Auto) (0.0-1.5) % Neut # (Auto) (1.4-5.7) K/uL Lymph # (Auto) (0.6-2.4) K/uL Thomas # (Auto) (0.0-0.8) K/uL Eos # (Auto) (0.0-0.7) K/uL Baso # (Auto) (0.0-0.1) K/uL Nucleated RBC % /100WBC Nucleated RBCs # K/uL Sodium (136-146) mmol/L Potassium (3.5-5.1) mmol/L Chloride (98-110) mmol/L Carbon Dioxide (21-31) mmol/L BUN (6.0-23.0) mg/dL Creatinine (0.6-1.5) mg/dL Est Cr Clr Drug Dosing mL/min Estimated GFR (MDRD) ml/min Glucose (60-110) mg/dL POC Glucose 200 H 264 H 164 H (60-110) mg/dL Calcium (8.8-10.8) mg/dL 03/07/17 03/07/17 03/07/17 Range/Units 07:20 07:20 11:38 WBC 13.13 H (4.0-11.0) K/uL RBC 4.91 (4.50-5.90) M/uL Hgb 14.5 (13.0-17.0) g/dL Hct 43.0 (38.0-50.0) % MCV 87.6 (80.0-98.0) fL MCH 29.5 (27.0-32.0) pg MCHC 33.7 (31.0-37.0) g/dL RDW Std Deviation 47.2 (28.0-62.0) fl RDW Coeff of Tanisha 15 (11.0-15.0) % Plt Count 147 L (150-400) K/uL MPV 12.10 H (7.40-12.00) fL Neut % (Auto) 76.5 (48.0-80.0) % Lymph % (Auto) 16.9 (16.0-40.0) % Thomas % (Auto) 5.7 (0.0-15.0) % Eos % (Auto) 0.8 (0.0-7.0) % Baso % (Auto) 0.1 (0.0-1.5) % Neut # (Auto) 10.0 H (1.4-5.7) K/uL Lymph # (Auto) 2.2 (0.6-2.4) K/uL Thomas # (Auto) 0.8 (0.0-0.8) K/uL Eos # (Auto) 0.1 (0.0-0.7) K/uL Baso # (Auto) 0.0 (0.0-0.1) K/uL Nucleated RBC % 0.0 /100WBC Nucleated RBCs # 0 K/uL Sodium 138 (136-146) mmol/L Potassium 3.9 (3.5-5.1) mmol/L Chloride 105 (98-110) mmol/L Carbon Dioxide 23 (21-31) mmol/L BUN 34 H (6.0-23.0) mg/dL Creatinine 1.2 (0.6-1.5) mg/dL Est Cr Clr Drug Dosing 50.82 mL/min Estimated GFR (MDRD) 58.3 ml/min Glucose 175 H (60-110) mg/dL POC Glucose 193 H (60-110) mg/dL Calcium 8.6 L (8.8-10.8) mg/dL Jc Results Last 24 Hours: Microbiology 03/05/17 14:56 Aerobic Blood Culture - Preliminary Blood - Venous - Lab Draw NO GROWTH AFTER 2 DAYS Anaerobic Blood Culture - Preliminary NO GROWTH AFTER 2 DAYS 03/05/17 14:47 Aerobic Blood Culture - Preliminary Blood - Venous NO GROWTH AFTER 2 DAYS Anaerobic Blood Culture - Preliminary NO GROWTH AFTER 2 DAYS 03/03/17 13:50 Aerobic Blood Culture - Final Blood - Venous (Mrsa) Staphylococcus Aureus Anaerobic Blood Culture - Preliminary NO GROWTH AFTER 4 DAYS 03/06/17 21:05 Clostridium difficile Toxin A&B (M) - Final Stool / Feces Negative for C.Diff Toxin/AG Med Orders - Current: Current Medications Acetaminophen (Tylenol) 650 mg PO Q4H PRN PRN Reason: Pain (Mild 1-3)/fever Albuterol/Ipratropium (Duoneb 3.0-0.5 Mg/3 Ml) 3 ml NEB Q6HRRT [facility] Furosemide (Lasix) 40 mg IVPUSH DAILY [facility] Last Admin: 03/07/17 08:16 Dose: 40 mg Heparin Sodium (Porcine) (Heparin Sodium) 5,000 units SUBCUT Q8H [facility] Last Admin: 03/07/17 13:47 Dose: 5,000 units Vancomycin HCl 2,000 mg/ (Sodium Chloride) 500 mls @ 250 mls/hr IV Q24H [facility] Last Admin: 03/07/17 07:46 Dose: 250 mls/hr Insulin Aspart (Novolog) 0 unit SUBCUT ACBED [facility] PRN Reason: Protocol Last Admin: 03/07/17 11:43 Dose: 2 units Nicotine (Habitrol) 7 mg TRDERM DAILY [facility] Last Admin: 03/07/17 08:16 Dose: 7 mg Ondansetron HCl (Zofran Odt) 4 mg PO Q4H PRN PRN Reason: nausea, able to take PO Ondansetron HCl (Zofran) 4 mg IVPUSH Q4H PRN PRN Reason: Nausea Oxycodone HCl (Oxycodone) 5 mg PO Q4H PRN PRN Reason: Pain (moderate 4-6) Polyethylene Glycol (Miralax) 17 gm PO DAILY PRN PRN Reason: Constipation Vancomycin HCl (Pharmacy To Dose - Vancomycin) 1 dose .XX ASDIRECTED [facility] Wound Care/Dressing Products (Duoderm Cgf) 1 each TOP ASDIRECTED PRN PRN Reason: Ulcer on coccyx Last Admin: 03/04/17 20:39 Dose: 1 each Discontinued Medications Albuterol/Ipratropium (Duoneb 3.0-0.5 Mg/3 Ml) 3 ml NEB ONETIME ONE Stop: 03/01/17 11:05 Last Admin: 03/01/17 11:34 Dose: 3 ml Albuterol/Ipratropium (Duoneb 3.0-0.5 Mg/3 Ml) 3 ml NEB Q4HRRT [facility] Last Admin: 03/07/17 14:08 Dose: Not Given Doxycycline Hyclate (Vibramycin) 100 mg PO Q12HR [facility] Last Admin: 03/03/17 08:11 Dose: 100 mg Furosemide (Lasix) 40 mg IVPUSH Q8H [facility] Last Admin: 03/04/17 00:32 Dose: 40 mg Furosemide (Lasix) 40 mg IVPUSH Q12H [facility] Last Admin: 03/04/17 20:19 Dose: 40 mg Heparin Sodium (Porcine) (Heparin Sodium) 5,000 units SUBCUT Q8H [facility] Last Admin: 03/01/17 21:52 Dose: Not Given Sodium Chloride (Normal Saline) 1,000 mls @ 125 mls/hr IV STAT [facility] Last Admin: 03/01/17 11:15 Dose: 999 mls/hr Piperacillin Sod/Tazobactam (Sod 2.25 gm/ Sodium Chloride) 50 mls @ 100 mls/hr IV ONETIME ONE Stop: 12/26/17 12:00 Last Admin: 03/01/17 11:36 Dose: 100 mls/hr Vancomycin HCl 1 gm/ Sodium (Chloride) 250 mls @ 250 mls/hr IV ONETIME ONE Stop: 03/01/17 12:31 Last Admin: 03/01/17 11:45 Dose: 250 mls/hr Sodium Chloride (Normal Saline) 1,000 mls @ 125 mls/hr IV STAT [facility] Last Admin: 03/01/17 11:50 Dose: 125 mls/hr Sodium Chloride (Normal Saline) 500 mls @ 999 mls/hr IV .Bolus ONE Stop: 03/01/17 12:55 Last Admin: 03/01/17 12:32 Dose: 999 mls/hr Sodium Chloride (Normal Saline) 1,000 mls @ 200 mls/hr IV ASDIRECTED [facility] Last Admin: 03/01/17 23:15 Dose: 200 mls/hr Levofloxacin/Dextrose 750 mg/ (Premix) 150 mls @ 100 mls/hr IV Q24H [facility] Last Admin: 03/01/17 15:26 Dose: Not Given Piperacillin Sod/Tazobactam (Sod 4.5 gm/ Sodium Chloride) 100 mls @ 100 mls/hr IV Q6H [facility] Last Admin: 03/01/17 15:26 Dose: Not Given Vancomycin HCl 0.5 gm/ Sodium (Chloride) 100 mls @ 200 mls/hr IV 03/01/17@1330 [facility] Stop: 03/01/17 13:59 Last Admin: 03/01/17 13:50 Dose: 200 mls/hr Levofloxacin/Dextrose 750 mg/ (Premix) 150 mls @ 100 mls/hr IV Q24H [facility] Stop: 03/01/17 15:29 Levofloxacin/Dextrose 500 mg/ (Premix) 100 mls @ 100 mls/hr IV Q48H [facility] Piperacillin Sod/Tazobactam (Sod 2.25 gm/ Sodium Chloride) 50 mls @ 50 mls/hr IV Q6H [facility] Last Admin: 03/01/17 15:26 Dose: Not Given Piperacillin Sod/Tazobactam (Sod 2.25 gm/ Sodium Chloride) 50 mls @ 50 mls/hr IV Q6H [facility] Vancomycin HCl 1,500 mg/ (Sodium Chloride) 500 mls @ 500 mls/hr IV Q24H [facility] Ceftriaxone Sodium/Dextrose 2 (gm/ Premix) 50 mls @ 100 mls/hr IV Q24H [facility] Last Admin: 03/02/17 13:13 Dose: 100 mls/hr Magnesium Sulfate 4 gm/ Premix 100 mls @ 50 mls/hr IV ONETIME ONE Stop: 03/01/17 21:17 Last Admin: 03/01/17 19:32 Dose: 50 mls/hr Sodium Chloride (Normal Saline) 500 mls @ 999 mls/hr IV .BOLUS [facility] Last Admin: 03/02/17 01:13 Dose: 999 mls/hr Sodium Chloride (Normal Saline) 1,000 mls @ 100 mls/hr IV ASDIRECTED [facility] Last Admin: 03/02/17 15:56 Dose: 100 mls/hr Vancomycin HCl 1,500 mg/ (Sodium Chloride) 500 mls @ 333.333 mls/hr IV Q24H [facility] Last Admin: 03/03/17 08:10 Dose: 333.333 mls/hr Vancomycin HCl 250 mg/ Sodium (Chloride) 100 mls @ 200 mls/hr IV ONETIME ONE Stop: 03/03/17 10:29 Vancomycin HCl 500 mg/ Sodium (Chloride) 100 mls @ 100 mls/hr IV ONETIME ONE Stop: 03/03/17 10:59 Vancomycin HCl 500 mg/ Sodium (Chloride) 100 mls @ 100 mls/hr IV ONETIME ONE Stop: 03/03/17 10:59 Last Admin: 03/03/17 10:39 Dose: 100 mls/hr Magnesium Sulfate 2 gm/ Premix 50 mls @ 25 mls/hr IV ONETIME ONE Stop: 03/04/17 08:21 Last Admin: 03/04/17 06:51 Dose: 25 mls/hr Potassium Phosphate 30 mmole/ (Sodium Chloride) 510 mls @ 100 mls/hr IV NOW ONE Stop: 03/04/17 11:25 Last Admin: 03/04/17 07:55 Dose: 100 mls/hr Potassium Phosphate 30 mmole/ (Sodium Chloride) 260 mls @ 86.667 mls/hr IV NOW ONE Stop: 03/04/17 18:59 Last Admin: 03/04/17 17:28 Dose: 86.667 mls/hr Magnesium Sulfate 2 gm/ Premix 50 mls @ 50 mls/hr IV ONETIME ONE Stop: 03/04/17 16:59 Last Admin: 03/04/17 16:18 Dose: 50 mls/hr Insulin Aspart (Novolog) 0 unit SUBCUT TIDAC [facility] PRN Reason: Protocol Last Admin: 03/01/17 17:02 Dose: 2 units Insulin Aspart (Novolog) 0 - 10 unit SUBCUT QID [facility] PRN Reason: Protocol Lidocaine (Xylocaine-Mpf 2%) Confirm Administered Dose 5 ml .ROUTE .STK-MED ONE Stop: 03/01/17 14:20 Last Admin: 03/01/17 15:02 Dose: 5 ml Methylprednisolone Sodium Succinate (Solu-Medrol) 125 mg IVPUSH ONETIME ONE Stop: 03/01/17 11:05 Last Admin: 03/01/17 11:33 Dose: 125 mg Morphine Sulfate (Morphine) 2 mg IVPUSH Q2H PRN PRN Reason: Pain (severe 7-10) Stop: 03/02/17 12:40 Ondansetron HCl (Zofran) 8 mg IVPUSH ONETIME ONE Stop: 03/01/17 11:08 Last Admin: 03/01/17 11:33 Dose: 8 mg Potassium Chloride (Klor-Con M20) 20 meq PO ONETIME ONE Stop: 03/02/17 07:01 Last Admin: 03/02/17 07:26 Dose: 20 meq Potassium Chloride (Klor-Con M20) 40 meq PO ONETIME ONE Stop: 03/04/17 06:24 Last Admin: 03/04/17 06:51 Dose: 40 meq Vancomycin HCl (Pharmacy To Dose - Vancomycin) 1 dose .XX ASDIRECTED [facility] Wound Care/Dressing Products (Duoderm Cgf) 1 each TOP ASDIRECTED ONE Stop: 03/02/17 23:27 Last Admin: 03/02/17 23:47 Dose: 1 each - Exam General: Alert, Oriented Neck: Supple Lungs: Normal Respiratory Effort, Rhonchi Cardiovascular: Regular Rate, Regular Rhythm GI/Abdominal Exam: Soft, Non-Tender Extremities: Pedal Edema (mild) Skin: Warm, Dry, Intact - Problem List Review Problem List Initiated/Reviewed/Updated: Yes - My Orders Last 24 Hours: My Active Orders 03/07/17 11:22 CULTURE BLOOD [BC] Routine 03/07/17 14:04 RT Aerosol Therapy [RC] ASDIRECTED 03/07/17 18:00 Albuterol/Ipratropium [DuoNeb 3.0-0.5 MG/3 ML] 3 ml NEB Q6HRRT 03/08/17 05:11 BASIC METABOLIC PANEL,BMP [CHEM] AM CBC WITH AUTO DIFF [HEME] AM 03/09/17 05:11 BASIC METABOLIC PANEL,BMP [CHEM] AM CBC WITH AUTO DIFF [HEME] AM - Plan Plan:: 82 yo male with pmh of CHF, Htn, 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 continue vancomycin, awaiting for the clearance of blood cultures. #DMII -ISS medium dose VTE: Heparin, SCD
[2017-03-08] MEDS: Albuterol/Ipratropium 3.0-0.5 MG/3 ML Neb Soln NEB SCH ×4 (00:50→17:29)
[2017-03-08 06:11] LABS: CHLORIDE,CL 109 mmol/L (98-110); SODIUM,NA 139 mmol/L (136-146)
[2017-03-08] MEDS: Hydrocolloid Dressing 4x4 Bandage TOP PRN (06:42)
[2017-03-08] MEDS: Heparin Sodium 5,000 Units/ML Vial SUBCUT SCH ×3 (06:42→21:49)
[2017-03-08] MEDS: Insulin Aspart 100 Units/ML 3 ML Pen SUBCUT SCH ×4 (06:53→21:49)
--- NOTE | 2017-03-08 08:24 | PCM.PN ---
- General Info Date of Service: 03/08/17 Admission Dx/Problem (Free Text): Admission Diagnosis/Problem Admission Diagnosis/Problem Pneumonia Subjective Update: Patient doing well. No complaints or concerns Functional Status: Reports: Pain Controlled, Tolerating Diet, Ambulating, Urinating - Review of Systems General: Reports: No Symptoms HEENT: Reports: No Symptoms Pulmonary: Reports: No Symptoms Cardiovascular: Reports: No Symptoms Gastrointestinal: Reports: No Symptoms Genitourinary: Reports: No Symptoms Musculoskeletal: Reports: No Symptoms Skin: Reports: No Symptoms Neurological: Reports: No Symptoms Psychiatric: Reports: No Symptoms - Patient Data Vitals - Most Recent: Last Vital Signs Temp 36.6 C 03/08/17 04:00 Pulse 87 03/08/17 04:00 Resp 28 H 03/08/17 04:00 BP 118/58 L 03/08/17 04:00 Pulse Ox 92 L 03/08/17 04:00 Weight - Most Recent: 90.2 kg I&O - Last 24 Hours: Intake & Output 03/07/17 03/08/17 03/08/17 22:59 06:59 14:59 Intake Total 437 200 Output Total 800 1300 Balance -363 -1100 Lab Results Last 24 Hours: Laboratory Results - last 24 hr 03/07/17 03/07/17 03/07/17 Range/Units 11:38 16:44 21:44 WBC (4.0-11.0) K/uL RBC (4.50-5.90) M/uL Hgb (13.0-17.0) g/dL Hct (38.0-50.0) % MCV (80.0-98.0) fL MCH (27.0-32.0) pg MCHC (31.0-37.0) g/dL RDW Std Deviation (28.0-62.0) fl RDW Coeff of Tanisha (11.0-15.0) % Plt Count (150-400) K/uL MPV (7.40-12.00) fL Add Manual Diff Neutrophils % (Manual) (48.0-80.0) % Band Neutrophils % % Lymphocytes % (Manual) (16.0-40.0) % Monocytes % (Manual) (0.0-15.0) % Eosinophils % (Manual) (0.0-7.0) % Nucleated RBC % /100WBC Absolute Seg Neuts (1.4-5.7) Band Neutrophils # Lymphocytes # (Manual) (0.6-2.4) Monocytes # (Manual) (0.0-0.8) Eosinophils # (Manual) (0.0-0.7) Nucleated RBCs # K/uL Sodium (136-146) mmol/L Potassium (3.5-5.1) mmol/L Chloride (98-110) mmol/L Carbon Dioxide (21-31) mmol/L BUN (6.0-23.0) mg/dL Creatinine (0.6-1.5) mg/dL Est Cr Clr Drug Dosing mL/min Estimated GFR (MDRD) ml/min Glucose (60-110) mg/dL POC Glucose 193 H 192 H 198 H (60-110) mg/dL Calcium (8.8-10.8) mg/dL 03/08/17 03/08/17 03/08/17 Range/Units 05:30 05:30 06:47 WBC 11.12 H (4.0-11.0) K/uL RBC 4.46 L (4.50-5.90) M/uL Hgb 12.8 L (13.0-17.0) g/dL Hct 39.2 (38.0-50.0) % MCV 87.9 (80.0-98.0) fL MCH 28.7 (27.0-32.0) pg MCHC 32.7 (31.0-37.0) g/dL RDW Std Deviation 47.1 (28.0-62.0) fl RDW Coeff of Tanisha 15 (11.0-15.0) % Plt Count 144 L (150-400) K/uL MPV 13.00 H (7.40-12.00) fL Add Manual Diff YES Neutrophils % (Manual) 73 (48.0-80.0) % Band Neutrophils % 3 % Lymphocytes % (Manual) 20 (16.0-40.0) % Monocytes % (Manual) 3 (0.0-15.0) % Eosinophils % (Manual) 1 (0.0-7.0) % Nucleated RBC % 0.0 /100WBC Absolute Seg Neuts 8.1 H (1.4-5.7) Band Neutrophils # 0.3 Lymphocytes # (Manual) 2.2 (0.6-2.4) Monocytes # (Manual) 0.3 (0.0-0.8) Eosinophils # (Manual) 0.1 (0.0-0.7) Nucleated RBCs # 0 K/uL Sodium 139 (136-146) mmol/L Potassium 4.4 (3.5-5.1) mmol/L Chloride 109 (98-110) mmol/L Carbon Dioxide 22 (21-31) mmol/L BUN 29 H (6.0-23.0) mg/dL Creatinine 1.1 (0.6-1.5) mg/dL Est Cr Clr Drug Dosing 55.44 mL/min Estimated GFR (MDRD) > 60.0 ml/min Glucose 171 H (60-110) mg/dL POC Glucose 165 H (60-110) mg/dL Calcium 8.3 L (8.8-10.8) mg/dL Jc Results Last 24 Hours: Microbiology 03/05/17 14:56 Aerobic Blood Culture - Preliminary Blood - Venous - Lab Draw NO GROWTH AFTER 2 DAYS Anaerobic Blood Culture - Preliminary NO GROWTH AFTER 2 DAYS 03/05/17 14:47 Aerobic Blood Culture - Preliminary Blood - Venous NO GROWTH AFTER 2 DAYS Anaerobic Blood Culture - Preliminary NO GROWTH AFTER 2 DAYS 03/03/17 13:50 Aerobic Blood Culture - Final Blood - Venous (Mrsa) Staphylococcus Aureus Anaerobic Blood Culture - Preliminary NO GROWTH AFTER 4 DAYS Med Orders - Current: Current Medications Acetaminophen (Tylenol) 650 mg PO Q4H PRN PRN Reason: Pain (Mild 1-3)/fever Albuterol/Ipratropium (Duoneb 3.0-0.5 Mg/3 Ml) 3 ml NEB Q6HRRT [facility] Last Admin: 03/08/17 06:06 Dose: 3 ml Furosemide (Lasix) 40 mg IVPUSH DAILY [facility] Last Admin: 03/07/17 08:16 Dose: 40 mg Heparin Sodium (Porcine) (Heparin Sodium) 5,000 units SUBCUT Q8H [facility] Last Admin: 03/08/17 06:42 Dose: 5,000 units Vancomycin HCl 2,000 mg/ (Sodium Chloride) 500 mls @ 250 mls/hr IV Q24H [facility] Last Admin: 03/07/17 07:46 Dose: 250 mls/hr Insulin Aspart (Novolog) 0 unit SUBCUT ACBED [facility] PRN Reason: Protocol Last Admin: 03/08/17 06:53 Dose: 2 units Nicotine (Habitrol) 7 mg TRDERM DAILY [facility] Last Admin: 03/07/17 08:16 Dose: 7 mg Ondansetron HCl (Zofran Odt) 4 mg PO Q4H PRN PRN Reason: nausea, able to take PO Ondansetron HCl (Zofran) 4 mg IVPUSH Q4H PRN PRN Reason: Nausea Oxycodone HCl (Oxycodone) 5 mg PO Q4H PRN PRN Reason: Pain (moderate 4-6) Polyethylene Glycol (Miralax) 17 gm PO DAILY PRN PRN Reason: Constipation Vancomycin HCl (Pharmacy To Dose - Vancomycin) 1 dose .XX ASDIRECTED [facility] Wound Care/Dressing Products (Duoderm Cgf) 1 each TOP ASDIRECTED PRN PRN Reason: Ulcer on coccyx Last Admin: 03/08/17 06:42 Dose: 1 each Discontinued Medications Albuterol/Ipratropium (Duoneb 3.0-0.5 Mg/3 Ml) 3 ml NEB ONETIME ONE Stop: 03/01/17 11:05 Last Admin: 03/01/17 11:34 Dose: 3 ml Albuterol/Ipratropium (Duoneb 3.0-0.5 Mg/3 Ml) 3 ml NEB Q4HRRT [facility] Last Admin: 03/07/17 14:08 Dose: Not Given Doxycycline Hyclate (Vibramycin) 100 mg PO Q12HR [facility] Last Admin: 03/03/17 08:11 Dose: 100 mg Furosemide (Lasix) 40 mg IVPUSH Q8H [facility] Last Admin: 03/04/17 00:32 Dose: 40 mg Furosemide (Lasix) 40 mg IVPUSH Q12H [facility] Last Admin: 03/04/17 20:19 Dose: 40 mg Heparin Sodium (Porcine) (Heparin Sodium) 5,000 units SUBCUT Q8H [facility] Last Admin: 03/01/17 21:52 Dose: Not Given Sodium Chloride (Normal Saline) 1,000 mls @ 125 mls/hr IV STAT [facility] Last Admin: 03/01/17 11:15 Dose: 999 mls/hr Piperacillin Sod/Tazobactam (Sod 2.25 gm/ Sodium Chloride) 50 mls @ 100 mls/hr IV ONETIME ONE Stop: 03/01/17 12:00 Last Admin: 03/01/17 11:36 Dose: 100 mls/hr Vancomycin HCl 1 gm/ Sodium (Chloride) 250 mls @ 250 mls/hr IV ONETIME ONE Stop: 03/01/17 12:31 Last Admin: 03/01/17 11:45 Dose: 250 mls/hr Sodium Chloride (Normal Saline) 1,000 mls @ 125 mls/hr IV STAT [facility] Last Admin: 03/01/17 11:50 Dose: 125 mls/hr Sodium Chloride (Normal Saline) 500 mls @ 999 mls/hr IV .Bolus ONE Stop: 03/01/17 12:55 Last Admin: 03/01/17 12:32 Dose: 999 mls/hr Sodium Chloride (Normal Saline) 1,000 mls @ 200 mls/hr IV ASDIRECTED [facility] Last Admin: 03/01/17 23:15 Dose: 200 mls/hr Levofloxacin/Dextrose 750 mg/ (Premix) 150 mls @ 100 mls/hr IV Q24H [facility] Last Admin: 03/01/17 15:26 Dose: Not Given Piperacillin Sod/Tazobactam (Sod 4.5 gm/ Sodium Chloride) 100 mls @ 100 mls/hr IV Q6H [facility] Last Admin: 03/01/17 15:26 Dose: Not Given Vancomycin HCl 0.5 gm/ Sodium (Chloride) 100 mls @ 200 mls/hr IV 03/01/17@1330 [facility] Stop: 03/01/17 13:59 Last Admin: 03/01/17 13:50 Dose: 200 mls/hr Levofloxacin/Dextrose 750 mg/ (Premix) 150 mls @ 100 mls/hr IV Q24H [facility] Stop: 03/01/17 15:29 Levofloxacin/Dextrose 500 mg/ (Premix) 100 mls @ 100 mls/hr IV Q48H [facility] Piperacillin Sod/Tazobactam (Sod 2.25 gm/ Sodium Chloride) 50 mls @ 50 mls/hr IV Q6H [facility] Last Admin: 03/01/17 15:26 Dose: Not Given Piperacillin Sod/Tazobactam (Sod 2.25 gm/ Sodium Chloride) 50 mls @ 50 mls/hr IV Q6H [facility] Vancomycin HCl 1,500 mg/ (Sodium Chloride) 500 mls @ 500 mls/hr IV Q24H [facility] Ceftriaxone Sodium/Dextrose 2 (gm/ Premix) 50 mls @ 100 mls/hr IV Q24H [facility] Last Admin: 03/02/17 13:13 Dose: 100 mls/hr Magnesium Sulfate 4 gm/ Premix 100 mls @ 50 mls/hr IV ONETIME ONE Stop: 03/01/17 21:17 Last Admin: 03/01/17 19:32 Dose: 50 mls/hr Sodium Chloride (Normal Saline) 500 mls @ 999 mls/hr IV .BOLUS [facility] Last Admin: 03/02/17 01:13 Dose: 999 mls/hr Sodium Chloride (Normal Saline) 1,000 mls @ 100 mls/hr IV ASDIRECTED [facility] Last Admin: 03/02/17 15:56 Dose: 100 mls/hr Vancomycin HCl 1,500 mg/ (Sodium Chloride) 500 mls @ 333.333 mls/hr IV Q24H [facility] Last Admin: 03/03/17 08:10 Dose: 333.333 mls/hr Vancomycin HCl 250 mg/ Sodium (Chloride) 100 mls @ 200 mls/hr IV ONETIME ONE Stop: 03/03/17 10:29 Vancomycin HCl 500 mg/ Sodium (Chloride) 100 mls @ 100 mls/hr IV ONETIME ONE Stop: 03/03/17 10:59 Vancomycin HCl 500 mg/ Sodium (Chloride) 100 mls @ 100 mls/hr IV ONETIME ONE Stop: 03/03/17 10:59 Last Admin: 03/03/17 10:39 Dose: 100 mls/hr Magnesium Sulfate 2 gm/ Premix 50 mls @ 25 mls/hr IV ONETIME ONE Stop: 03/04/17 08:21 Last Admin: 03/04/17 06:51 Dose: 25 mls/hr Potassium Phosphate 30 mmole/ (Sodium Chloride) 510 mls @ 100 mls/hr IV NOW ONE Stop: 03/04/17 11:25 Last Admin: 03/04/17 07:55 Dose: 100 mls/hr Potassium Phosphate 30 mmole/ (Sodium Chloride) 260 mls @ 86.667 mls/hr IV NOW ONE Stop: 03/04/17 18:59 Last Admin: 03/04/17 17:28 Dose: 86.667 mls/hr Magnesium Sulfate 2 gm/ Premix 50 mls @ 50 mls/hr IV ONETIME ONE Stop: 03/04/17 16:59 Last Admin: 03/04/17 16:18 Dose: 50 mls/hr Insulin Aspart (Novolog) 0 unit SUBCUT TIDAC [facility] PRN Reason: Protocol Last Admin: 03/01/17 17:02 Dose: 2 units Insulin Aspart (Novolog) 0 - 10 unit SUBCUT QID [facility] PRN Reason: Protocol Lidocaine (Xylocaine-Mpf 2%) Confirm Administered Dose 5 ml .ROUTE .STK-MED ONE Stop: 03/01/17 14:20 Last Admin: 03/01/17 15:02 Dose: 5 ml Methylprednisolone Sodium Succinate (Solu-Medrol) 125 mg IVPUSH ONETIME ONE Stop: 03/01/17 11:05 Last Admin: 03/01/17 11:33 Dose: 125 mg Morphine Sulfate (Morphine) 2 mg IVPUSH Q2H PRN PRN Reason: Pain (severe 7-10) Stop: 03/02/17 12:40 Ondansetron HCl (Zofran) 8 mg IVPUSH ONETIME ONE Stop: 03/01/17 11:08 Last Admin: 03/01/17 11:33 Dose: 8 mg Potassium Chloride (Klor-Con M20) 20 meq PO ONETIME ONE Stop: 03/02/17 07:01 Last Admin: 03/02/17 07:26 Dose: 20 meq Potassium Chloride (Klor-Con M20) 40 meq PO ONETIME ONE Stop: 03/04/17 06:24 Last Admin: 03/04/17 06:51 Dose: 40 meq Vancomycin HCl (Pharmacy To Dose - Vancomycin) 1 dose .XX ASDIRECTED [facility] Wound Care/Dressing Products (Duoderm Cgf) 1 each TOP ASDIRECTED ONE Stop: 03/02/17 23:27 Last Admin: 03/02/17 23:47 Dose: 1 each - Exam Quality Assessment: Supplemental Oxygen General: Alert, Oriented, Cooperative Lungs: Normal Respiratory Effort, Decreased Breath Sounds, Crackles, Rales Cardiovascular: Regular Rate, Regular Rhythm GI/Abdominal Exam: Normal Bowel Sounds, Soft, No Distention Back Exam: Normal Inspection Extremities: Normal Inspection, Normal Capillary Refill Skin: Intact Neurological: No New Focal Deficit - Problem List Review Problem List Initiated/Reviewed/Updated: Yes - Plan Plan:: 82 yo male with pmh of CHF, Htn, 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, Insulin-dependent DMII and gout admitted 03/01/17 to ICU for Sepsis secondary to MRSA Pneumonia #MRSA pneumonia with bacteremia -BC no growth as of 03/05/17, Leukocytosis improving -continue vancomycin, f/u cultures #Hypoxia, secondary to above -wean O2 #DMII -ISS medium dose VTE: Heparin, SCD
[2017-03-08] MEDS: Furosemide 40 MG/4 ML VIAL IVPUSH SCH (08:42)
[2017-03-08] MEDS: Nicotine 7 MG/24 Hr Patch TRDERM SCH (08:58)
[2017-03-08] MEDS: predniSONE 20 MG Tab PO SCH (17:52)
--- NOTE | 2017-03-08 18:35 | CT ---
EXAM DATE: 03/01/17 PATIENT'S AGE: 82 Patient: CHEMO MCFARLANE Facility: [place], [place] Site . Site : 1935 Study: CT Chest [id number]/30/2017 3:40:24 PM Ordering Physician: Robb Lancaster Final Report: Indication: Bacteremia Technique: Non contrast CT chest. Coronal and sagittal reformatted images obtained. Comparison: No comparison studies are available . Findings: Significant motion degrades the quality of the study.Mild cardiomegaly. No pericardial effusion. Small sub centimeter mediastinal nodes. Coronary calcification. Trace effusions. No central endobronchial lesion. Diffuse bilateral patchy mixed ground-glass and airspace opacities. Peripheral reticular lines could reflect pulmonary fibrosis. No suspicious bony findings. Impression: Diffuse bilateral mixed patchy ground-glass and airspace consolidation likely reflects an infectious etiology. Tiny pleural effusions. Subpleural reticular opacities could reflect pulmonary fibrosis Please note that all CT scans at this facility use dose modulation, iterative reconstruction, and/or weight-based dosing when appropriate to reduce radiation dose to as low as reasonably achievable. Dictated by Janette Cortes MD @ Mar 05 2017 4:13PM (Electronic Signature) Report Signed by Proxy. ENEDINA
--- NOTE | 2017-03-08 18:36 | CT ---
EXAM DATE: 03/01/17 PATIENT'S AGE: 82 Patient: CHEMO MCFARLANE Facility: [place], [place] Site . Site : 1935 Study: CT Abdomen/Pelvis [id number] 3:40:52 PM Ordering Physician: Robb Lancaster Final Report: Indication: Bacteremia Technique: Non contrast, CT abdomen and pelvis with contrast re-formatted images obtained Comparison: No comparison studies are available. Findings: Motion degrades the quality of the study. Unenhanced liver appears unremarkable. Gallbladder is unremarkable. Splenomegaly measuring 15 cm. Pancreas adrenal gland appears unremarkable. No abdominal aortic aneurysm. Urinary bladder is unremarkable. There is no hydronephrosis visualized. Low- density lesions in the kidneys incompletely characterized but probably reflects cysts. No hydronephrosis. Fat containing umbilical hernia. Enlarged prostate gland measuring 5.4 cm. Minimal diverticulosis. The lateral left abdomen is not imaged on this study. No obstruction . No Suspicious bony lesions. Impression: No acute findings in the abdomen or pelvis. Diverticulosis. Enlarged prostate gland . Splenomegaly. Please note that all CT scans at this facility use dose modulation, iterative reconstruction, and/or weight-based dosing when appropriate to reduce radiation dose to as low as reasonably achievable. Dictated by Janette Cortes MD @ Mar 05 2017 4:19PM (Electronic Signature) Report Signed by Proxy. [facility]
[2017-03-09] MEDS: Albuterol/Ipratropium 3.0-0.5 MG/3 ML Neb Soln NEB SCH ×5 (00:55→23:48)
[2017-03-09] MEDS: Heparin Sodium 5,000 Units/ML Vial SUBCUT SCH ×3 (06:33→21:27)
[2017-03-09] MEDS: Insulin Aspart 100 Units/ML 3 ML Pen SUBCUT SCH ×4 (08:26→21:28)
[2017-03-09] MEDS: Nicotine 7 MG/24 Hr Patch TRDERM SCH (08:43)
[2017-03-09] MEDS: predniSONE 20 MG Tab PO SCH (08:43)
[2017-03-09] MEDS: Furosemide 40 MG/4 ML VIAL IVPUSH SCH (08:44)
--- NOTE | 2017-03-09 10:16 | PCM.PN ---
- General Info Date of Service: 03/09/17 Admission Dx/Problem (Free Text): Admission Diagnosis/Problem Admission Diagnosis/Problem Pneumonia Subjective Update: Patient still having sob and requiring supplemental O2. Functional Status: Reports: Pain Controlled, Tolerating Diet, Ambulating, Urinating - Review of Systems General: Reports: No Symptoms HEENT: Reports: No Symptoms Pulmonary: Reports: Shortness of Breath Cardiovascular: Reports: No Symptoms Gastrointestinal: Reports: No Symptoms Genitourinary: Reports: No Symptoms Musculoskeletal: Reports: No Symptoms Skin: Reports: No Symptoms Neurological: Reports: No Symptoms Psychiatric: Reports: No Symptoms - Patient Data Vitals - Most Recent: Last Vital Signs Temp 36.4 C 03/09/17 08:00 Pulse 73 03/09/17 08:00 Resp 18 03/09/17 08:00 BP 127/58 L 03/09/17 08:00 Pulse Ox 97 03/09/17 08:00 Weight - Most Recent: 90.2 kg I&O - Last 24 Hours: Intake & Output 03/08/17 03/09/17 03/09/17 22:59 06:59 14:59 Intake Total 250 400 Balance 250 400 Lab Results Last 24 Hours: Laboratory Results - last 24 hr 03/08/17 03/08/17 03/08/17 Range/Units 11:16 16:56 21:41 WBC (4.0-11.0) K/uL RBC (4.50-5.90) M/uL Hgb (13.0-17.0) g/dL Hct (38.0-50.0) % MCV (80.0-98.0) fL MCH (27.0-32.0) pg MCHC (31.0-37.0) g/dL RDW Std Deviation (28.0-62.0) fl RDW Coeff of Tanisha (11.0-15.0) % Plt Count (150-400) K/uL MPV (7.40-12.00) fL Neut % (Auto) (48.0-80.0) % Lymph % (Auto) (16.0-40.0) % Vance % (Auto) (0.0-15.0) % Eos % (Auto) (0.0-7.0) % Baso % (Auto) (0.0-1.5) % Neut # (Auto) (1.4-5.7) K/uL Lymph # (Auto) (0.6-2.4) K/uL Vance # (Auto) (0.0-0.8) K/uL Eos # (Auto) (0.0-0.7) K/uL Baso # (Auto) (0.0-0.1) K/uL Nucleated RBC % /100WBC Nucleated RBCs # K/uL Sodium (136-146) mmol/L Potassium (3.5-5.1) mmol/L Chloride (98-110) mmol/L Carbon Dioxide (21-31) mmol/L BUN (6.0-23.0) mg/dL Creatinine (0.6-1.5) mg/dL Est Cr Clr Drug Dosing mL/min Estimated GFR (MDRD) ml/min Glucose (60-110) mg/dL POC Glucose 217 H 140 H 227 H (60-110) mg/dL Calcium (8.8-10.8) mg/dL Vancomycin Trough (5-15) ug/mL 03/09/17 03/09/17 03/09/17 Range/Units 06:26 07:12 07:12 WBC 9.47 (4.0-11.0) K/uL RBC 4.65 (4.50-5.90) M/uL Hgb 13.5 (13.0-17.0) g/dL Hct 41.0 (38.0-50.0) % MCV 88.2 (80.0-98.0) fL MCH 29.0 (27.0-32.0) pg MCHC 32.9 (31.0-37.0) g/dL RDW Std Deviation 46.2 (28.0-62.0) fl RDW Coeff of Tanisha 14 (11.0-15.0) % Plt Count 126 L (150-400) K/uL MPV 12.70 H (7.40-12.00) fL Neut % (Auto) 81.3 H (48.0-80.0) % Lymph % (Auto) 15.1 L (16.0-40.0) % Vance % (Auto) 3.5 (0.0-15.0) % Eos % (Auto) 0.1 (0.0-7.0) % Baso % (Auto) 0.0 (0.0-1.5) % Neut # (Auto) 7.7 H (1.4-5.7) K/uL Lymph # (Auto) 1.4 (0.6-2.4) K/uL Vance # (Auto) 0.3 (0.0-0.8) K/uL Eos # (Auto) 0.0 (0.0-0.7) K/uL Baso # (Auto) 0.0 (0.0-0.1) K/uL Nucleated RBC % 0.0 /100WBC Nucleated RBCs # 0 K/uL Sodium 137 (136-146) mmol/L Potassium 5.0 (3.5-5.1) mmol/L Chloride 106 (98-110) mmol/L Carbon Dioxide 23 (21-31) mmol/L BUN 32 H (6.0-23.0) mg/dL Creatinine 1.4 (0.6-1.5) mg/dL Est Cr Clr Drug Dosing 43.56 mL/min Estimated GFR (MDRD) 48.8 ml/min Glucose 228 H (60-110) mg/dL POC Glucose 242 H (60-110) mg/dL Calcium 9.1 (8.8-10.8) mg/dL Vancomycin Trough (5-15) ug/mL 03/09/17 Range/Units 07:12 WBC (4.0-11.0) K/uL RBC (4.50-5.90) M/uL Hgb (13.0-17.0) g/dL Hct (38.0-50.0) % MCV (80.0-98.0) fL MCH (27.0-32.0) pg MCHC (31.0-37.0) g/dL RDW Std Deviation (28.0-62.0) fl RDW Coeff of Tanisha (11.0-15.0) % Plt Count (150-400) K/uL MPV (7.40-12.00) fL Neut % (Auto) (48.0-80.0) % Lymph % (Auto) (16.0-40.0) % Vance % (Auto) (0.0-15.0) % Eos % (Auto) (0.0-7.0) % Baso % (Auto) (0.0-1.5) % Neut # (Auto) (1.4-5.7) K/uL Lymph # (Auto) (0.6-2.4) K/uL Vance # (Auto) (0.0-0.8) K/uL Eos # (Auto) (0.0-0.7) K/uL Baso # (Auto) (0.0-0.1) K/uL Nucleated RBC % /100WBC Nucleated RBCs # K/uL Sodium (136-146) mmol/L Potassium (3.5-5.1) mmol/L Chloride (98-110) mmol/L Carbon Dioxide (21-31) mmol/L BUN (6.0-23.0) mg/dL Creatinine (0.6-1.5) mg/dL Est Cr Clr Drug Dosing mL/min Estimated GFR (MDRD) ml/min Glucose (60-110) mg/dL POC Glucose (60-110) mg/dL Calcium (8.8-10.8) mg/dL Vancomycin Trough 24.4 H (5-15) ug/mL Jc Results Last 24 Hours: Microbiology 03/05/17 14:56 Aerobic Blood Culture - Preliminary Blood - Venous - Lab Draw NO GROWTH AFTER 3 DAYS Anaerobic Blood Culture - Preliminary NO GROWTH AFTER 3 DAYS 03/05/17 14:47 Aerobic Blood Culture - Preliminary Blood - Venous NO GROWTH AFTER 3 DAYS Anaerobic Blood Culture - Preliminary NO GROWTH AFTER 3 DAYS 03/03/17 13:50 Aerobic Blood Culture - Final Blood - Venous (Mrsa) Staphylococcus Aureus Anaerobic Blood Culture - Final NO GROWTH AFTER 5 DAYS 03/07/17 11:22 Aerobic Blood Culture - Preliminary Blood NO GROWTH AFTER 1 DAY Anaerobic Blood Culture - Preliminary NO GROWTH AFTER 1 DAY Med Orders - Current: Current Medications Acetaminophen (Tylenol) 650 mg PO Q4H PRN PRN Reason: Pain (Mild 1-3)/fever Albuterol/Ipratropium (Duoneb 3.0-0.5 Mg/3 Ml) 3 ml NEB Q6HRRT [facility] Last Admin: 03/09/17 05:55 Dose: 3 ml Heparin Sodium (Porcine) (Heparin Sodium) 5,000 units SUBCUT Q8H [facility] Last Admin: 03/09/17 06:33 Dose: 5,000 units Vancomycin HCl 1,500 mg/ (Sodium Chloride) 500 mls @ 250 mls/hr IV Q24H [facility] Insulin Aspart (Novolog) 0 unit SUBCUT ACBED [facility] PRN Reason: Protocol Last Admin: 03/09/17 08:26 Dose: 4 units Nicotine (Habitrol) 7 mg TRDERM DAILY [facility] Last Admin: 03/09/17 08:43 Dose: 7 mg Ondansetron HCl (Zofran Odt) 4 mg PO Q4H PRN PRN Reason: nausea, able to take PO Ondansetron HCl (Zofran) 4 mg IVPUSH Q4H PRN PRN Reason: Nausea Oxycodone HCl (Oxycodone) 5 mg PO Q4H PRN PRN Reason: Pain (moderate 4-6) Last Admin: 03/09/17 01:13 Dose: 5 mg Polyethylene Glycol (Miralax) 17 gm PO DAILY PRN PRN Reason: Constipation Prednisone (Prednisone) 40 mg PO WITHBREAKFAST [facility] Last Admin: 03/09/17 08:43 Dose: 40 mg Vancomycin HCl (Pharmacy To Dose - Vancomycin) 1 dose .XX ASDIRECTED [facility] Wound Care/Dressing Products (Duoderm Cgf) 1 each TOP ASDIRECTED PRN PRN Reason: Ulcer on coccyx Last Admin: 03/08/17 06:42 Dose: 1 each Discontinued Medications Albuterol/Ipratropium (Duoneb 3.0-0.5 Mg/3 Ml) 3 ml NEB ONETIME ONE Stop: 03/01/17 11:05 Last Admin: 03/01/17 11:34 Dose: 3 ml Albuterol/Ipratropium (Duoneb 3.0-0.5 Mg/3 Ml) 3 ml NEB Q4HRRT [facility] Last Admin: 03/07/17 14:08 Dose: Not Given Doxycycline Hyclate (Vibramycin) 100 mg PO Q12HR [facility] Last Admin: 03/03/17 08:11 Dose: 100 mg Furosemide (Lasix) 40 mg IVPUSH Q8H [facility] Last Admin: 03/04/17 00:32 Dose: 40 mg Furosemide (Lasix) 40 mg IVPUSH Q12H [facility] Last Admin: 03/04/17 20:19 Dose: 40 mg Furosemide (Lasix) 40 mg IVPUSH DAILY [facility] Last Admin: 03/09/17 08:44 Dose: 40 mg Heparin Sodium (Porcine) (Heparin Sodium) 5,000 units SUBCUT Q8H [facility] Last Admin: 03/01/17 21:52 Dose: Not Given Sodium Chloride (Normal Saline) 1,000 mls @ 125 mls/hr IV STAT RAUL Last Admin: 03/01/17 11:15 Dose: 999 mls/hr Piperacillin Sod/Tazobactam (Sod 2.25 gm/ Sodium Chloride) 50 mls @ 100 mls/hr IV ONETIME ONE Stop: 03/01/17 12:00 Last Admin: 03/01/17 11:36 Dose: 100 mls/hr Vancomycin HCl 1 gm/ Sodium (Chloride) 250 mls @ 250 mls/hr IV ONETIME ONE Stop: 03/01/17 12:31 Last Admin: 03/01/17 11:45 Dose: 250 mls/hr Sodium Chloride (Normal Saline) 1,000 mls @ 125 mls/hr IV STAT [facility] Last Admin: 03/01/17 11:50 Dose: 125 mls/hr Sodium Chloride (Normal Saline) 500 mls @ 999 mls/hr IV .Bolus ONE Stop: 03/01/17 12:55 Last Admin: 03/01/17 12:32 Dose: 999 mls/hr Sodium Chloride (Normal Saline) 1,000 mls @ 200 mls/hr IV ASDIRECTED [facility] Last Admin: 03/01/17 23:15 Dose: 200 mls/hr Levofloxacin/Dextrose 750 mg/ (Premix) 150 mls @ 100 mls/hr IV Q24H [facility] Last Admin: 03/01/17 15:26 Dose: Not Given Piperacillin Sod/Tazobactam (Sod 4.5 gm/ Sodium Chloride) 100 mls @ 100 mls/hr IV Q6H [facility] Last Admin: 03/01/17 15:26 Dose: Not Given Vancomycin HCl 0.5 gm/ Sodium (Chloride) 100 mls @ 200 mls/hr IV 03/01/17@1330 [facility] Stop: 03/01/17 13:59 Last Admin: 03/01/17 13:50 Dose: 200 mls/hr Levofloxacin/Dextrose 750 mg/ (Premix) 150 mls @ 100 mls/hr IV Q24H [facility] Stop: 03/01/17 15:29 Levofloxacin/Dextrose 500 mg/ (Premix) 100 mls @ 100 mls/hr IV Q48H [facility] Piperacillin Sod/Tazobactam (Sod 2.25 gm/ Sodium Chloride) 50 mls @ 50 mls/hr IV Q6H [facility] Last Admin: 03/01/17 15:26 Dose: Not Given Piperacillin Sod/Tazobactam (Sod 2.25 gm/ Sodium Chloride) 50 mls @ 50 mls/hr IV Q6H [facility] Vancomycin HCl 1,500 mg/ (Sodium Chloride) 500 mls @ 500 mls/hr IV Q24H [facility] Ceftriaxone Sodium/Dextrose 2 (gm/ Premix) 50 mls @ 100 mls/hr IV Q24H [facility] Last Admin: 03/02/17 13:13 Dose: 100 mls/hr Magnesium Sulfate 4 gm/ Premix 100 mls @ 50 mls/hr IV ONETIME ONE Stop: 03/01/17 21:17 Last Admin: 03/01/17 19:32 Dose: 50 mls/hr Sodium Chloride (Normal Saline) 500 mls @ 999 mls/hr IV .BOLUS [facility] Last Admin: 03/02/17 01:13 Dose: 999 mls/hr Sodium Chloride (Normal Saline) 1,000 mls @ 100 mls/hr IV ASDIRECTED [facility] Last Admin: 03/02/17 15:56 Dose: 100 mls/hr Vancomycin HCl 1,500 mg/ (Sodium Chloride) 500 mls @ 333.333 mls/hr IV Q24H [facility] Last Admin: 03/03/17 08:10 Dose: 333.333 mls/hr Vancomycin HCl 250 mg/ Sodium (Chloride) 100 mls @ 200 mls/hr IV ONETIME ONE Stop: 03/03/17 10:29 Vancomycin HCl 500 mg/ Sodium (Chloride) 100 mls @ 100 mls/hr IV ONETIME ONE Stop: 03/03/17 10:59 Vancomycin HCl 2,000 mg/ (Sodium Chloride) 500 mls @ 250 mls/hr IV Q24H [facility] Last Admin: 03/09/17 08:36 Dose: Not Given Vancomycin HCl 500 mg/ Sodium (Chloride) 100 mls @ 100 mls/hr IV ONETIME ONE Stop: 03/03/17 10:59 Last Admin: 03/03/17 10:39 Dose: 100 mls/hr Magnesium Sulfate 2 gm/ Premix 50 mls @ 25 mls/hr IV ONETIME ONE Stop: 03/04/17 08:21 Last Admin: 03/04/17 06:51 Dose: 25 mls/hr Potassium Phosphate 30 mmole/ (Sodium Chloride) 510 mls @ 100 mls/hr IV NOW ONE Stop: 03/04/17 11:25 Last Admin: 03/04/17 07:55 Dose: 100 mls/hr Potassium Phosphate 30 mmole/ (Sodium Chloride) 260 mls @ 86.667 mls/hr IV NOW ONE Stop: 03/04/17 18:59 Last Admin: 03/04/17 17:28 Dose: 86.667 mls/hr Magnesium Sulfate 2 gm/ Premix 50 mls @ 50 mls/hr IV ONETIME ONE Stop: 03/04/17 16:59 Last Admin: 03/04/17 16:18 Dose: 50 mls/hr Insulin Aspart (Novolog) 0 unit SUBCUT TIDAC [facility]UL PRN Reason: Protocol Last Admin: 03/01/17 17:02 Dose: 2 units Insulin Aspart (Novolog) 0 - 10 unit SUBCUT QID [facility]UL PRN Reason: Protocol Lidocaine (Xylocaine-Mpf 2%) Confirm Administered Dose 5 ml .ROUTE .STK-MED ONE Stop: 03/01/17 14:20 Last Admin: 03/01/17 15:02 Dose: 5 ml Methylprednisolone Sodium Succinate (Solu-Medrol) 125 mg IVPUSH ONETIME ONE Stop: 03/01/17 11:05 Last Admin: 03/01/17 11:33 Dose: 125 mg Morphine Sulfate (Morphine) 2 mg IVPUSH Q2H PRN PRN Reason: Pain (severe 7-10) Stop: 03/02/17 12:40 Ondansetron HCl (Zofran) 8 mg IVPUSH ONETIME ONE Stop: 03/01/17 11:08 Last Admin: 03/01/17 11:33 Dose: 8 mg Potassium Chloride (Klor-Con M20) 20 meq PO ONETIME ONE Stop: 03/02/17 07:01 Last Admin: 03/02/17 07:26 Dose: 20 meq Potassium Chloride (Klor-Con M20) 40 meq PO ONETIME ONE Stop: 03/04/17 06:24 Last Admin: 03/04/17 06:51 Dose: 40 meq Vancomycin HCl (Pharmacy To Dose - Vancomycin) 1 dose .XX ASDIRECTED [facility] Wound Care/Dressing Products (Duoderm Cgf) 1 each TOP ASDIRECTED ONE Stop: 03/02/17 23:27 Last Admin: 03/02/17 23:47 Dose: 1 each - Exam Quality Assessment: Supplemental Oxygen General: Alert, Oriented, No Acute Distress HEENT: Pupils Equal, Pupils Reactive Neck: Supple, No JVD Lungs: Decreased Breath Sounds, Crackles, Wheezing Cardiovascular: Regular Rate, Regular Rhythm Back Exam: Normal Inspection Extremities: Normal Inspection, No Pedal Edema Neurological: No New Focal Deficit Psy/Mental Status: Alert, Normal Affect, Normal Mood - Problem List Review Problem List Initiated/Reviewed/Updated: Yes - Plan Plan:: 82 yo male with pmh of CHF, Htn, 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, Insulin-dependent DMII and gout admitted 03/01/17 to ICU for Sepsis secondary to MRSA Pneumonia. #MRSA pneumonia with bacteremia -BC no growth as of 03/05/17, Leukocytosis resolved -Hypoxia not improving -continue vancomycin #Hypoxia, secondary to above -wean O2 -added prednisone PO for suspected underlying respiratory process #DMII -ISS medium dose VTE: Heparin, SCD
[2017-03-10] MEDS: Albuterol/Ipratropium 3.0-0.5 MG/3 ML Neb Soln NEB SCH ×3 (06:28→18:21)
[2017-03-10] MEDS: Heparin Sodium 5,000 Units/ML Vial SUBCUT SCH ×3 (07:16→21:36)
[2017-03-10] MEDS: Insulin Aspart 100 Units/ML 3 ML Pen SUBCUT SCH ×4 (07:17→21:58)
[2017-03-10] MEDS: Nicotine 7 MG/24 Hr Patch TRDERM SCH (08:21)
[2017-03-10] MEDS: predniSONE 20 MG Tab PO SCH (08:22)
--- NOTE | 2017-03-10 10:10 | PCM.PN ---
- General Info Date of Service: 03/10/17 Admission Dx/Problem (Free Text): Admission Diagnosis/Problem Admission Diagnosis/Problem Pneumonia Subjective Update: No overnight events. Patient still requiring supplemental O2. Functional Status: Reports: Pain Controlled, Tolerating Diet, Ambulating, Urinating - Review of Systems General: Reports: No Symptoms HEENT: Reports: No Symptoms Pulmonary: Reports: Shortness of Breath, Cough Cardiovascular: Reports: No Symptoms Gastrointestinal: Reports: No Symptoms Genitourinary: Reports: No Symptoms Musculoskeletal: Reports: No Symptoms Skin: Reports: No Symptoms Neurological: Reports: No Symptoms Psychiatric: Reports: No Symptoms - Patient Data Vitals - Most Recent: Last Vital Signs Temp 36.2 C 03/10/17 08:50 Pulse 77 03/10/17 08:50 Resp 20 03/10/17 08:50 BP 137/63 03/10/17 08:50 Pulse Ox 94 L 03/10/17 08:50 Weight - Most Recent: 91.5 kg I&O - Last 24 Hours: Intake & Output 03/09/17 03/10/17 03/10/17 22:59 06:59 14:59 Intake Total 200 450 Output Total 150 Balance 200 300 Lab Results Last 24 Hours: Laboratory Results - last 24 hr 03/09/17 03/09/17 03/09/17 Range/Units 11:20 16:35 21:25 WBC (4.0-11.0) K/uL RBC (4.50-5.90) M/uL Hgb (13.0-17.0) g/dL Hct (38.0-50.0) % MCV (80.0-98.0) fL MCH (27.0-32.0) pg MCHC (31.0-37.0) g/dL RDW Std Deviation (28.0-62.0) fl RDW Coeff of Tanisha (11.0-15.0) % Plt Count (150-400) K/uL MPV (7.40-12.00) fL Add Manual Diff Neutrophils % (Manual) (48.0-80.0) % Band Neutrophils % % Lymphocytes % (Manual) (16.0-40.0) % Monocytes % (Manual) (0.0-15.0) % Eosinophils % (Manual) (0.0-7.0) % Nucleated RBC % /100WBC Absolute Seg Neuts (1.4-5.7) Band Neutrophils # Lymphocytes # (Manual) (0.6-2.4) Monocytes # (Manual) (0.0-0.8) Eosinophils # (Manual) (0.0-0.7) Nucleated RBCs # K/uL Sodium (136-146) mmol/L Potassium (3.5-5.1) mmol/L Chloride (98-110) mmol/L Carbon Dioxide (21-31) mmol/L BUN (6.0-23.0) mg/dL Creatinine (0.6-1.5) mg/dL Est Cr Clr Drug Dosing mL/min Estimated GFR (MDRD) ml/min Glucose (60-110) mg/dL POC Glucose 171 H 252 H 242 H (60-110) mg/dL Calcium (8.8-10.8) mg/dL 03/10/17 03/10/17 Range/Units 09:14 09:14 WBC 13.66 H (4.0-11.0) K/uL RBC 4.54 (4.50-5.90) M/uL Hgb 13.4 (13.0-17.0) g/dL Hct 40.2 (38.0-50.0) % MCV 88.5 (80.0-98.0) fL MCH 29.5 (27.0-32.0) pg MCHC 33.3 (31.0-37.0) g/dL RDW Std Deviation 46.6 (28.0-62.0) fl RDW Coeff of Tanisha 15 (11.0-15.0) % Plt Count 131 L (150-400) K/uL MPV 13.00 H (7.40-12.00) fL Add Manual Diff YES Neutrophils % (Manual) 77 (48.0-80.0) % Band Neutrophils % 2 % Lymphocytes % (Manual) 17 (16.0-40.0) % Monocytes % (Manual) 3 (0.0-15.0) % Eosinophils % (Manual) 1 (0.0-7.0) % Nucleated RBC % 0.0 /100WBC Absolute Seg Neuts 10.5 H (1.4-5.7) Band Neutrophils # 0.3 Lymphocytes # (Manual) 2.3 (0.6-2.4) Monocytes # (Manual) 0.4 (0.0-0.8) Eosinophils # (Manual) 0.1 (0.0-0.7) Nucleated RBCs # 0 K/uL Sodium 136 (136-146) mmol/L Potassium 4.3 (3.5-5.1) mmol/L Chloride 101 (98-110) mmol/L Carbon Dioxide 24 (21-31) mmol/L BUN 47 H (6.0-23.0) mg/dL Creatinine 1.7 H (0.6-1.5) mg/dL Est Cr Clr Drug Dosing 35.87 mL/min Estimated GFR (MDRD) 39.0 ml/min Glucose 177 H (60-110) mg/dL POC Glucose (60-110) mg/dL Calcium 8.8 (8.8-10.8) mg/dL Jc Results Last 24 Hours: Microbiology 03/05/17 14:56 Aerobic Blood Culture - Preliminary Blood - Venous - Lab Draw NO GROWTH AFTER 4 DAYS Anaerobic Blood Culture - Preliminary NO GROWTH AFTER 4 DAYS 03/05/17 14:47 Aerobic Blood Culture - Preliminary Blood - Venous NO GROWTH AFTER 4 DAYS Anaerobic Blood Culture - Preliminary NO GROWTH AFTER 4 DAYS 03/07/17 11:22 Aerobic Blood Culture - Preliminary Blood NO GROWTH AFTER 2 DAYS Anaerobic Blood Culture - Preliminary NO GROWTH AFTER 2 DAYS Med Orders - Current: Current Medications Acetaminophen (Tylenol) 650 mg PO Q4H PRN PRN Reason: Pain (Mild 1-3)/fever Albuterol/Ipratropium (Duoneb 3.0-0.5 Mg/3 Ml) 3 ml NEB Q6HRRT [facility] Last Admin: 03/10/17 06:28 Dose: 3 ml Heparin Sodium (Porcine) (Heparin Sodium) 5,000 units SUBCUT Q8H [facility] Last Admin: 03/10/17 07:16 Dose: 5,000 units Vancomycin HCl 1,500 mg/ (Sodium Chloride) 500 mls @ 250 mls/hr IV Q24H [facility] Last Admin: 03/09/17 12:00 Dose: 250 mls/hr Insulin Aspart (Novolog) 0 unit SUBCUT ACBED [facility] PRN Reason: Protocol Last Admin: 03/10/17 07:17 Dose: 2 units Nicotine (Habitrol) 7 mg TRDERM DAILY [facility] Last Admin: 03/10/17 08:21 Dose: 7 mg Ondansetron HCl (Zofran Odt) 4 mg PO Q4H PRN PRN Reason: nausea, able to take PO Ondansetron HCl (Zofran) 4 mg IVPUSH Q4H PRN PRN Reason: Nausea Oxycodone HCl (Oxycodone) 5 mg PO Q4H PRN PRN Reason: Pain (moderate 4-6) Last Admin: 03/09/17 01:13 Dose: 5 mg Polyethylene Glycol (Miralax) 17 gm PO DAILY PRN PRN Reason: Constipation Prednisone (Prednisone) 40 mg PO WITHBREAKFAST [facility] Last Admin: 03/10/17 08:22 Dose: 40 mg Vancomycin HCl (Pharmacy To Dose - Vancomycin) 1 dose .XX ASDIRECTED [facility] Wound Care/Dressing Products (Duoderm Cgf) 1 each TOP ASDIRECTED PRN PRN Reason: Ulcer on coccyx Last Admin: 03/08/17 06:42 Dose: 1 each Discontinued Medications Albuterol/Ipratropium (Duoneb 3.0-0.5 Mg/3 Ml) 3 ml NEB ONETIME ONE Stop: 03/01/17 11:05 Last Admin: 03/01/17 11:34 Dose: 3 ml Albuterol/Ipratropium (Duoneb 3.0-0.5 Mg/3 Ml) 3 ml NEB Q4HRRT [facility] Last Admin: 03/07/17 14:08 Dose: Not Given Doxycycline Hyclate (Vibramycin) 100 mg PO Q12HR [facility] Last Admin: 03/03/17 08:11 Dose: 100 mg Furosemide (Lasix) 40 mg IVPUSH Q8H [facility] Last Admin: 03/04/17 00:32 Dose: 40 mg Furosemide (Lasix) 40 mg IVPUSH Q12H [facility] Last Admin: 03/04/17 20:19 Dose: 40 mg Furosemide (Lasix) 40 mg IVPUSH DAILY [facility] Last Admin: 03/09/17 08:44 Dose: 40 mg Heparin Sodium (Porcine) (Heparin Sodium) 5,000 units SUBCUT Q8H [facility] Last Admin: 03/01/17 21:52 Dose: Not Given Sodium Chloride (Normal Saline) 1,000 mls @ 125 mls/hr IV STAT [facility] Last Admin: 03/01/17 11:15 Dose: 999 mls/hr Piperacillin Sod/Tazobactam (Sod 2.25 gm/ Sodium Chloride) 50 mls @ 100 mls/hr IV ONETIME ONE Stop: 03/01/17 12:00 Last Admin: 03/01/17 11:36 Dose: 100 mls/hr Vancomycin HCl 1 gm/ Sodium (Chloride) 250 mls @ 250 mls/hr IV ONETIME ONE Stop: 03/01/17 12:31 Last Admin: 03/01/17 11:45 Dose: 250 mls/hr Sodium Chloride (Normal Saline) 1,000 mls @ 125 mls/hr IV STAT [facility] Last Admin: 03/01/17 11:50 Dose: 125 mls/hr Sodium Chloride (Normal Saline) 500 mls @ 999 mls/hr IV .Bolus ONE Stop: 03/01/17 12:55 Last Admin: 03/01/17 12:32 Dose: 999 mls/hr Sodium Chloride (Normal Saline) 1,000 mls @ 200 mls/hr IV ASDIRECTED [facility] Last Admin: 03/01/17 23:15 Dose: 200 mls/hr Levofloxacin/Dextrose 750 mg/ (Premix) 150 mls @ 100 mls/hr IV Q24H [facility] Last Admin: 03/01/17 15:26 Dose: Not Given Piperacillin Sod/Tazobactam (Sod 4.5 gm/ Sodium Chloride) 100 mls @ 100 mls/hr IV Q6H [facility] Last Admin: 03/01/17 15:26 Dose: Not Given Vancomycin HCl 0.5 gm/ Sodium (Chloride) 100 mls @ 200 mls/hr IV 03/01/17@1330 [facility] Stop: 03/01/17 13:59 Last Admin: 03/01/17 13:50 Dose: 200 mls/hr Levofloxacin/Dextrose 750 mg/ (Premix) 150 mls @ 100 mls/hr IV Q24H [facility] Stop: 03/01/17 15:29 Levofloxacin/Dextrose 500 mg/ (Premix) 100 mls @ 100 mls/hr IV Q48H [facility] Piperacillin Sod/Tazobactam (Sod 2.25 gm/ Sodium Chloride) 50 mls @ 50 mls/hr IV Q6H [facility] Last Admin: 03/01/17 15:26 Dose: Not Given Piperacillin Sod/Tazobactam (Sod 2.25 gm/ Sodium Chloride) 50 mls @ 50 mls/hr IV Q6H [facility] Vancomycin HCl 1,500 mg/ (Sodium Chloride) 500 mls @ 500 mls/hr IV Q24H [facility] Ceftriaxone Sodium/Dextrose 2 (gm/ Premix) 50 mls @ 100 mls/hr IV Q24H [facility] Last Admin: 03/02/17 13:13 Dose: 100 mls/hr Magnesium Sulfate 4 gm/ Premix 100 mls @ 50 mls/hr IV ONETIME ONE Stop: 03/01/17 21:17 Last Admin: 03/01/17 19:32 Dose: 50 mls/hr Sodium Chloride (Normal Saline) 500 mls @ 999 mls/hr IV .BOLUS [facility] Last Admin: 03/02/17 01:13 Dose: 999 mls/hr Sodium Chloride (Normal Saline) 1,000 mls @ 100 mls/hr IV ASDIRECTED [facility] Last Admin: 03/02/17 15:56 Dose: 100 mls/hr Vancomycin HCl 1,500 mg/ (Sodium Chloride) 500 mls @ 333.333 mls/hr IV Q24H [facility] Last Admin: 03/03/17 08:10 Dose: 333.333 mls/hr Vancomycin HCl 250 mg/ Sodium (Chloride) 100 mls @ 200 mls/hr IV ONETIME ONE Stop: 03/03/17 10:29 Vancomycin HCl 500 mg/ Sodium (Chloride) 100 mls @ 100 mls/hr IV ONETIME ONE Stop: 03/03/17 10:59 Vancomycin HCl 2,000 mg/ (Sodium Chloride) 500 mls @ 250 mls/hr IV Q24H [facility] Last Admin: 03/09/17 08:36 Dose: Not Given Vancomycin HCl 500 mg/ Sodium (Chloride) 100 mls @ 100 mls/hr IV ONETIME ONE Stop: 03/03/17 10:59 Last Admin: 03/03/17 10:39 Dose: 100 mls/hr Magnesium Sulfate 2 gm/ Premix 50 mls @ 25 mls/hr IV ONETIME ONE Stop: 03/04/17 08:21 Last Admin: 03/04/17 06:51 Dose: 25 mls/hr Potassium Phosphate 30 mmole/ (Sodium Chloride) 510 mls @ 100 mls/hr IV NOW ONE Stop: 03/04/17 11:25 Last Admin: 03/04/17 07:55 Dose: 100 mls/hr Potassium Phosphate 30 mmole/ (Sodium Chloride) 260 mls @ 86.667 mls/hr IV NOW ONE Stop: 03/04/17 18:59 Last Admin: 03/04/17 17:28 Dose: 86.667 mls/hr Magnesium Sulfate 2 gm/ Premix 50 mls @ 50 mls/hr IV ONETIME ONE Stop: 03/04/17 16:59 Last Admin: 03/04/17 16:18 Dose: 50 mls/hr Insulin Aspart (Novolog) 0 unit SUBCUT TIDAC [facility] PRN Reason: Protocol Last Admin: 03/01/17 17:02 Dose: 2 units Insulin Aspart (Novolog) 0 - 10 unit SUBCUT QID [facility] PRN Reason: Protocol Lidocaine (Xylocaine-Mpf 2%) Confirm Administered Dose 5 ml .ROUTE .STK-MED ONE Stop: 03/01/17 14:20 Last Admin: 03/01/17 15:02 Dose: 5 ml Methylprednisolone Sodium Succinate (Solu-Medrol) 125 mg IVPUSH ONETIME ONE Stop: 03/01/17 11:05 Last Admin: 03/01/17 11:33 Dose: 125 mg Morphine Sulfate (Morphine) 2 mg IVPUSH Q2H PRN PRN Reason: Pain (severe 7-10) Stop: 03/02/17 12:40 Ondansetron HCl (Zofran) 8 mg IVPUSH ONETIME ONE Stop: 03/01/17 11:08 Last Admin: 03/01/17 11:33 Dose: 8 mg Potassium Chloride (Klor-Con M20) 20 meq PO ONETIME ONE Stop: 03/02/17 07:01 Last Admin: 03/02/17 07:26 Dose: 20 meq Potassium Chloride (Klor-Con M20) 40 meq PO ONETIME ONE Stop: 03/04/17 06:24 Last Admin: 03/04/17 06:51 Dose: 40 meq Vancomycin HCl (Pharmacy To Dose - Vancomycin) 1 dose .XX ASDIRECTED [facility] Wound Care/Dressing Products (Duoderm Cgf) 1 each TOP ASDIRECTED ONE Stop: 03/02/17 23:27 Last Admin: 03/02/17 23:47 Dose: 1 each - Exam General: Alert, Oriented, No Acute Distress HEENT: Pupils Equal, Pupils Reactive Neck: Supple, No JVD Lungs: Normal Respiratory Effort, Decreased Breath Sounds, Crackles, Rales GI/Abdominal Exam: Normal Bowel Sounds, Soft, Non-Tender, No Distention Back Exam: Normal Inspection Extremities: Normal Inspection, No Pedal Edema, Normal Capillary Refill Skin: Warm, Dry, Intact Neurological: No New Focal Deficit Psy/Mental Status: Alert, Normal Affect, Normal Mood - Problem List Review Problem List Initiated/Reviewed/Updated: Yes - Plan Plan:: 82 yo male with pmh of CHF, Htn, 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, Insulin-dependent DMII and gout admitted 03/01/17 to ICU for Sepsis secondary to MRSA Pneumonia. #MRSA pneumonia with bacteremia -BC no growth as of 03/05/17, Leukocytosis resolved -Hypoxia improving, currently on 3L O2 -continue vancomycin, currently on Day 6 of therapy #Hypoxia, secondary to above -wean O2 -continue prednisone PO for suspected underlying respiratory process #DMII -ISS medium dose VTE: Heparin, SCD
[2017-03-10] MEDS: Hydrocolloid Dressing 4x4 Bandage TOP PRN (22:01)
[2017-03-11] MEDS: Albuterol/Ipratropium 3.0-0.5 MG/3 ML Neb Soln NEB SCH ×4 (00:27→19:01)
[2017-03-11] MEDS: Heparin Sodium 5,000 Units/ML Vial SUBCUT SCH ×3 (06:02→22:49)
[2017-03-11] MEDS: Insulin Aspart 100 Units/ML 3 ML Pen SUBCUT SCH ×4 (07:24→22:33)
--- NOTE | 2017-03-11 08:27 | PCM.PN ---
<Baluch,Scotty - Last Filed: 03/11/17 08:18> - General Info Date of Service: 03/11/17 Admission Dx/Problem (Free Text): Admission Diagnosis/Problem Admission Diagnosis/Problem Pneumonia Subjective Update: No overnight events. Patient still requiring supplemental O2. Functional Status: Reports: Pain Controlled, Tolerating Diet, Ambulating, Urinating - Review of Systems General: Reports: No Symptoms HEENT: Reports: No Symptoms Pulmonary: Reports: Shortness of Breath, Cough Cardiovascular: Reports: No Symptoms Gastrointestinal: Reports: No Symptoms Genitourinary: Reports: No Symptoms Musculoskeletal: Reports: No Symptoms Skin: Reports: No Symptoms Neurological: Reports: No Symptoms Psychiatric: Reports: No Symptoms - Patient Data Vitals - Most Recent: Last Vital Signs Temp 36.8 C 03/11/17 04:00 Pulse 69 03/11/17 04:00 Resp 20 03/11/17 04:00 BP 137/65 03/11/17 04:00 Pulse Ox 92 L 03/11/17 06:00 Weight - Most Recent: 93.5 kg I&O - Last 24 Hours: Intake & Output 03/10/17 03/11/17 03/11/17 22:59 06:59 14:59 Intake Total 360 800 Output Total 1676 Balance 360 -876 Lab Results Last 24 Hours: Laboratory Results - last 24 hr 03/10/17 03/10/17 03/10/17 Range/Units 06:34 09:14 09:14 WBC 13.66 H (4.0-11.0) K/uL RBC 4.54 (4.50-5.90) M/uL Hgb 13.4 (13.0-17.0) g/dL Hct 40.2 (38.0-50.0) % MCV 88.5 (80.0-98.0) fL MCH 29.5 (27.0-32.0) pg MCHC 33.3 (31.0-37.0) g/dL RDW Std Deviation 46.6 (28.0-62.0) fl RDW Coeff of Tanisha 15 (11.0-15.0) % Plt Count 131 L (150-400) K/uL MPV 13.00 H (7.40-12.00) fL Add Manual Diff YES Neutrophils % (Manual) 77 (48.0-80.0) % Band Neutrophils % 2 % Lymphocytes % (Manual) 17 (16.0-40.0) % Monocytes % (Manual) 3 (0.0-15.0) % Eosinophils % (Manual) 1 (0.0-7.0) % Nucleated RBC % 0.0 /100WBC Absolute Seg Neuts 10.5 H (1.4-5.7) Band Neutrophils # 0.3 Lymphocytes # (Manual) 2.3 (0.6-2.4) Monocytes # (Manual) 0.4 (0.0-0.8) Eosinophils # (Manual) 0.1 (0.0-0.7) Nucleated RBCs # 0 K/uL Sodium 136 (136-146) mmol/L Potassium 4.3 (3.5-5.1) mmol/L Chloride 101 (98-110) mmol/L Carbon Dioxide 24 (21-31) mmol/L BUN 47 H (6.0-23.0) mg/dL Creatinine 1.7 H (0.6-1.5) mg/dL Est Cr Clr Drug Dosing 35.87 mL/min Estimated GFR (MDRD) 39.0 ml/min Glucose 177 H (60-110) mg/dL POC Glucose 165 H (60-110) mg/dL Calcium 8.8 (8.8-10.8) mg/dL 03/10/17 03/10/17 03/10/17 Range/Units 11:32 16:20 21:57 WBC (4.0-11.0) K/uL RBC (4.50-5.90) M/uL Hgb (13.0-17.0) g/dL Hct (38.0-50.0) % MCV (80.0-98.0) fL MCH (27.0-32.0) pg MCHC (31.0-37.0) g/dL RDW Std Deviation (28.0-62.0) fl RDW Coeff of Tanisha (11.0-15.0) % Plt Count (150-400) K/uL MPV (7.40-12.00) fL Add Manual Diff Neutrophils % (Manual) (48.0-80.0) % Band Neutrophils % % Lymphocytes % (Manual) (16.0-40.0) % Monocytes % (Manual) (0.0-15.0) % Eosinophils % (Manual) (0.0-7.0) % Nucleated RBC % /100WBC Absolute Seg Neuts (1.4-5.7) Band Neutrophils # Lymphocytes # (Manual) (0.6-2.4) Monocytes # (Manual) (0.0-0.8) Eosinophils # (Manual) (0.0-0.7) Nucleated RBCs # K/uL Sodium (136-146) mmol/L Potassium (3.5-5.1) mmol/L Chloride (98-110) mmol/L Carbon Dioxide (21-31) mmol/L BUN (6.0-23.0) mg/dL Creatinine (0.6-1.5) mg/dL Est Cr Clr Drug Dosing mL/min Estimated GFR (MDRD) ml/min Glucose (60-110) mg/dL POC Glucose 172 H 310 H 257 H (60-110) mg/dL Calcium (8.8-10.8) mg/dL 03/11/17 Range/Units 04:55 WBC (4.0-11.0) K/uL RBC (4.50-5.90) M/uL Hgb (13.0-17.0) g/dL Hct (38.0-50.0) % MCV (80.0-98.0) fL MCH (27.0-32.0) pg MCHC (31.0-37.0) g/dL RDW Std Deviation (28.0-62.0) fl RDW Coeff of Tanisha (11.0-15.0) % Plt Count (150-400) K/uL MPV (7.40-12.00) fL Add Manual Diff Neutrophils % (Manual) (48.0-80.0) % Band Neutrophils % % Lymphocytes % (Manual) (16.0-40.0) % Monocytes % (Manual) (0.0-15.0) % Eosinophils % (Manual) (0.0-7.0) % Nucleated RBC % /100WBC Absolute Seg Neuts (1.4-5.7) Band Neutrophils # Lymphocytes # (Manual) (0.6-2.4) Monocytes # (Manual) (0.0-0.8) Eosinophils # (Manual) (0.0-0.7) Nucleated RBCs # K/uL Sodium 136 (136-146) mmol/L Potassium 4.6 (3.5-5.1) mmol/L Chloride 106 (98-110) mmol/L Carbon Dioxide 22 (21-31) mmol/L BUN 51 H (6.0-23.0) mg/dL Creatinine 1.5 (0.6-1.5) mg/dL Est Cr Clr Drug Dosing 40.66 mL/min Estimated GFR (MDRD) 45.0 ml/min Glucose 177 H (60-110) mg/dL POC Glucose (60-110) mg/dL Calcium 8.2 L (8.8-10.8) mg/dL Jc Results Last 24 Hours: Microbiology 03/05/17 14:56 Aerobic Blood Culture - Final Blood - Venous - Lab Draw NO GROWTH AFTER 5 DAYS Anaerobic Blood Culture - Final NO GROWTH AFTER 5 DAYS 03/05/17 14:47 Aerobic Blood Culture - Final Blood - Venous NO GROWTH AFTER 5 DAYS Anaerobic Blood Culture - Final NO GROWTH AFTER 5 DAYS 03/07/17 11:22 Aerobic Blood Culture - Preliminary Blood NO GROWTH AFTER 3 DAYS Anaerobic Blood Culture - Preliminary NO GROWTH AFTER 3 DAYS Med Orders - Current: Current Medications Acetaminophen (Tylenol) 650 mg PO Q4H PRN PRN Reason: Pain (Mild 1-3)/fever Albuterol/Ipratropium (Duoneb 3.0-0.5 Mg/3 Ml) 3 ml NEB Q6HRRT [facility] Last Admin: 03/11/17 06:07 Dose: 3 ml Heparin Sodium (Porcine) (Heparin Sodium) 5,000 units SUBCUT Q8H [facility] Last Admin: 03/11/17 06:02 Dose: 5,000 units Vancomycin HCl 1,500 mg/ (Sodium Chloride) 500 mls @ 250 mls/hr IV Q24H [facility] Last Admin: 03/10/17 12:23 Dose: 250 mls/hr Insulin Aspart (Novolog) 0 unit SUBCUT ACBED [facility] PRN Reason: Protocol Last Admin: 03/11/17 07:24 Dose: 2 units Nicotine (Habitrol) 7 mg TRDERM DAILY [facility] Last Admin: 03/10/17 08:21 Dose: 7 mg Ondansetron HCl (Zofran Odt) 4 mg PO Q4H PRN PRN Reason: nausea, able to take PO Ondansetron HCl (Zofran) 4 mg IVPUSH Q4H PRN PRN Reason: Nausea Oxycodone HCl (Oxycodone) 5 mg PO Q4H PRN PRN Reason: Pain (moderate 4-6) Last Admin: 03/09/17 01:13 Dose: 5 mg Polyethylene Glycol (Miralax) 17 gm PO DAILY PRN PRN Reason: Constipation Prednisone (Prednisone) 40 mg PO WITHBREAKFAST [facility] Last Admin: 03/10/17 08:22 Dose: 40 mg Vancomycin HCl (Pharmacy To Dose - Vancomycin) 1 dose .XX ASDIRECTED [facility] Wound Care/Dressing Products (Duoderm Cgf) 1 each TOP ASDIRECTED PRN PRN Reason: Ulcer on coccyx Last Admin: 03/10/17 22:01 Dose: 1 each Discontinued Medications Albuterol/Ipratropium (Duoneb 3.0-0.5 Mg/3 Ml) 3 ml NEB ONETIME ONE Stop: 03/01/17 11:05 Last Admin: 03/01/17 11:34 Dose: 3 ml Albuterol/Ipratropium (Duoneb 3.0-0.5 Mg/3 Ml) 3 ml NEB Q4HRRT [facility] Last Admin: 03/07/17 14:08 Dose: Not Given Doxycycline Hyclate (Vibramycin) 100 mg PO Q12HR [facility] Last Admin: 03/03/17 08:11 Dose: 100 mg Furosemide (Lasix) 40 mg IVPUSH Q8H [facility] Last Admin: 03/04/17 00:32 Dose: 40 mg Furosemide (Lasix) 40 mg IVPUSH Q12H [facility] Last Admin: 03/04/17 20:19 Dose: 40 mg Furosemide (Lasix) 40 mg IVPUSH DAILY [facility] Last Admin: 03/09/17 08:44 Dose: 40 mg Heparin Sodium (Porcine) (Heparin Sodium) 5,000 units SUBCUT Q8H [facility] Last Admin: 03/01/17 21:52 Dose: Not Given Sodium Chloride (Normal Saline) 1,000 mls @ 125 mls/hr IV STAT [facility] Last Admin: 03/01/17 11:15 Dose: 999 mls/hr Piperacillin Sod/Tazobactam (Sod 2.25 gm/ Sodium Chloride) 50 mls @ 100 mls/hr IV ONETIME ONE Stop: 03/01/17 12:00 Last Admin: 03/01/17 11:36 Dose: 100 mls/hr Vancomycin HCl 1 gm/ Sodium (Chloride) 250 mls @ 250 mls/hr IV ONETIME ONE Stop: 03/01/17 12:31 Last Admin: 03/01/17 11:45 Dose: 250 mls/hr Sodium Chloride (Normal Saline) 1,000 mls @ 125 mls/hr IV STAT [facility] Last Admin: 03/01/17 11:50 Dose: 125 mls/hr Sodium Chloride (Normal Saline) 500 mls @ 999 mls/hr IV .Bolus ONE Stop: 03/01/17 12:55 Last Admin: 03/01/17 12:32 Dose: 999 mls/hr Sodium Chloride (Normal Saline) 1,000 mls @ 200 mls/hr IV ASDIRECTED [facility] Last Admin: 03/01/17 23:15 Dose: 200 mls/hr Levofloxacin/Dextrose 750 mg/ (Premix) 150 mls @ 100 mls/hr IV Q24H [facility] Last Admin: 03/01/17 15:26 Dose: Not Given Piperacillin Sod/Tazobactam (Sod 4.5 gm/ Sodium Chloride) 100 mls @ 100 mls/hr IV Q6H [facility] Last Admin: 03/01/17 15:26 Dose: Not Given Vancomycin HCl 0.5 gm/ Sodium (Chloride) 100 mls @ 200 mls/hr IV 03/01/17@1330 [facility] Stop: 03/01/17 13:59 Last Admin: 03/01/17 13:50 Dose: 200 mls/hr Levofloxacin/Dextrose 750 mg/ (Premix) 150 mls @ 100 mls/hr IV Q24H [facility] Stop: 03/01/17 15:29 Levofloxacin/Dextrose 500 mg/ (Premix) 100 mls @ 100 mls/hr IV Q48H [facility] Piperacillin Sod/Tazobactam (Sod 2.25 gm/ Sodium Chloride) 50 mls @ 50 mls/hr IV Q6H [facility] Last Admin: 03/01/17 15:26 Dose: Not Given Piperacillin Sod/Tazobactam (Sod 2.25 gm/ Sodium Chloride) 50 mls @ 50 mls/hr IV Q6H [facility] Vancomycin HCl 1,500 mg/ (Sodium Chloride) 500 mls @ 500 mls/hr IV Q24H [facility] Ceftriaxone Sodium/Dextrose 2 (gm/ Premix) 50 mls @ 100 mls/hr IV Q24H [facility] Last Admin: 03/02/17 13:13 Dose: 100 mls/hr Magnesium Sulfate 4 gm/ Premix 100 mls @ 50 mls/hr IV ONETIME ONE Stop: 03/01/17 21:17 Last Admin: 03/01/17 19:32 Dose: 50 mls/hr Sodium Chloride (Normal Saline) 500 mls @ 999 mls/hr IV .BOLUS [facility] Last Admin: 03/02/17 01:13 Dose: 999 mls/hr Sodium Chloride (Normal Saline) 1,000 mls @ 100 mls/hr IV ASDIRECTED [facility] Last Admin: 03/02/17 15:56 Dose: 100 mls/hr Vancomycin HCl 1,500 mg/ (Sodium Chloride) 500 mls @ 333.333 mls/hr IV Q24H [facility] Last Admin: 03/03/17 08:10 Dose: 333.333 mls/hr Vancomycin HCl 250 mg/ Sodium (Chloride) 100 mls @ 200 mls/hr IV ONETIME ONE Stop: 03/03/17 10:29 Vancomycin HCl 500 mg/ Sodium (Chloride) 100 mls @ 100 mls/hr IV ONETIME ONE Stop: 03/03/17 10:59 Vancomycin HCl 2,000 mg/ (Sodium Chloride) 500 mls @ 250 mls/hr IV Q24H [facility] Last Admin: 03/09/17 08:36 Dose: Not Given Vancomycin HCl 500 mg/ Sodium (Chloride) 100 mls @ 100 mls/hr IV ONETIME ONE Stop: 03/03/17 10:59 Last Admin: 03/03/17 10:39 Dose: 100 mls/hr Magnesium Sulfate 2 gm/ Premix 50 mls @ 25 mls/hr IV ONETIME ONE Stop: 03/04/17 08:21 Last Admin: 03/04/17 06:51 Dose: 25 mls/hr Potassium Phosphate 30 mmole/ (Sodium Chloride) 510 mls @ 100 mls/hr IV NOW ONE Stop: 03/04/17 11:25 Last Admin: 03/04/17 07:55 Dose: 100 mls/hr Potassium Phosphate 30 mmole/ (Sodium Chloride) 260 mls @ 86.667 mls/hr IV NOW ONE Stop: 03/04/17 18:59 Last Admin: 03/04/17 17:28 Dose: 86.667 mls/hr Magnesium Sulfate 2 gm/ Premix 50 mls @ 50 mls/hr IV ONETIME ONE Stop: 03/04/17 16:59 Last Admin: 03/04/17 16:18 Dose: 50 mls/hr Insulin Aspart (Novolog) 0 unit SUBCUT TIDAC [facility] PRN Reason: Protocol Last Admin: 03/01/17 17:02 Dose: 2 units Insulin Aspart (Novolog) 0 - 10 unit SUBCUT QID [facility] PRN Reason: Protocol Lidocaine (Xylocaine-Mpf 2%) Confirm Administered Dose 5 ml .ROUTE .STK-MED ONE Stop: 03/01/17 14:20 Last Admin: 03/01/17 15:02 Dose: 5 ml Methylprednisolone Sodium Succinate (Solu-Medrol) 125 mg IVPUSH ONETIME ONE Stop: 03/01/17 11:05 Last Admin: 03/01/17 11:33 Dose: 125 mg Morphine Sulfate (Morphine) 2 mg IVPUSH Q2H PRN PRN Reason: Pain (severe 7-10) Stop: 03/02/17 12:40 Ondansetron HCl (Zofran) 8 mg IVPUSH ONETIME ONE Stop: 03/01/17 11:08 Last Admin: 03/01/17 11:33 Dose: 8 mg Potassium Chloride (Klor-Con M20) 20 meq PO ONETIME ONE Stop: 03/02/17 07:01 Last Admin: 03/02/17 07:26 Dose: 20 meq Potassium Chloride (Klor-Con M20) 40 meq PO ONETIME ONE Stop: 03/04/17 06:24 Last Admin: 03/04/17 06:51 Dose: 40 meq Vancomycin HCl (Pharmacy To Dose - Vancomycin) 1 dose .XX ASDIRECTED [facility] Wound Care/Dressing Products (Duoderm Cgf) 1 each TOP ASDIRECTED ONE Stop: 03/02/17 23:27 Last Admin: 03/02/17 23:47 Dose: 1 each - Exam Quality Assessment: Supplemental Oxygen General: Alert, Oriented, No Acute Distress HEENT: Pupils Equal, Pupils Reactive Neck: Supple, No JVD Lungs: Decreased Breath Sounds, Crackles Cardiovascular: Regular Rate, Regular Rhythm GI/Abdominal Exam: Normal Bowel Sounds, Soft, Non-Tender, No Distention Extremities: Normal Inspection, Normal Capillary Refill Peripheral Pulses: 2+: Radial (L), Radial (R) Skin: Warm, Dry Wound/Incisions: Healing Well Neurological: No New Focal Deficit Psy/Mental Status: Alert, Normal Affect, Normal Mood - Problem List Review Problem List Initiated/Reviewed/Updated: Yes - My Orders Last 24 Hours: My Active Orders 03/10/17 11:04 Central Line PICC Insertion [Central Venous Line Insertion] [OM.PC] Routine 03/11/17 08:08 CBC WITH AUTO DIFF [HEME] Routine 03/12/17 05:11 BASIC METABOLIC PANEL,BMP [CHEM] AM PTT,PARTIAL THROMBOPLSTIN TIME [COAG] AM 03/13/17 05:11 BASIC METABOLIC PANEL,BMP [CHEM] AM CBC WITH AUTO DIFF [HEME] AM PTT,PARTIAL THROMBOPLSTIN TIME [COAG] AM 03/14/17 05:11 BASIC METABOLIC PANEL,BMP [CHEM] AM CBC WITH AUTO DIFF [HEME] AM PTT,PARTIAL THROMBOPLSTIN TIME [COAG] AM 03/15/17 05:11 BASIC METABOLIC PANEL,BMP [CHEM] AM CBC WITH AUTO DIFF [HEME] AM PTT,PARTIAL THROMBOPLSTIN TIME [COAG] AM 03/16/17 05:11 BASIC METABOLIC PANEL,BMP [CHEM] AM CBC WITH AUTO DIFF [HEME] AM PTT,PARTIAL THROMBOPLSTIN TIME [COAG] AM 03/17/17 05:11 BASIC METABOLIC PANEL,BMP [CHEM] AM CBC WITH AUTO DIFF [HEME] AM PTT,PARTIAL THROMBOPLSTIN TIME [COAG] AM 03/18/17 05:11 BASIC METABOLIC PANEL,BMP [CHEM] AM CBC WITH AUTO DIFF [HEME] AM PTT,PARTIAL THROMBOPLSTIN TIME [COAG] AM 03/19/17 05:11 BASIC METABOLIC PANEL,BMP [CHEM] AM CBC WITH AUTO DIFF [HEME] AM PTT,PARTIAL THROMBOPLSTIN TIME [COAG] AM 03/20/17 05:11 BASIC METABOLIC PANEL,BMP [CHEM] AM CBC WITH AUTO DIFF [HEME] AM PTT,PARTIAL THROMBOPLSTIN TIME [COAG] AM 03/21/17 05:11 CBC WITH AUTO DIFF [HEME] AM PTT,PARTIAL THROMBOPLSTIN TIME [COAG] AM 03/22/17 05:11 CBC WITH AUTO DIFF [HEME] AM - Plan Plan:: 82 yo male with pmh of CHF, Htn, 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, Insulin-dependent DMII and gout admitted 03/01/17 to ICU for Sepsis secondary to MRSA Pneumonia. #MRSA pneumonia with bacteremia -BC no growth as of 03/05/17, Leukocytosis resolved -Hypoxia still present, requiring 4L O2 -continue vancomycin, currently on Day 7/14 of IV antibiotic therapy -consulted for PICC line yesterday but interventional radiology is overbooked. Patient is currently on waiting list to have line placed this afternoon. Last Heparin dose was this morning at 0600. Will hold heparin for today. #Hypoxia, secondary to above -wean O2 -continue prednisone PO for suspected underlying respiratory process #DMII -ISS medium dose VTE: Heparin, SCD <Nura Pineda - Last Filed: 03/18/17 18:28> - Patient Data Vitals - Most Recent: Last Vital Signs Temp 35.9 C 03/14/17 08:00 Pulse 84 03/14/17 08:00 Resp 20 03/14/17 08:00 BP 138/70 03/14/17 08:00 Pulse Ox 93 L 03/14/17 08:00 Med Orders - Current: Current Medications Discontinued Medications Acetaminophen (Tylenol) 650 mg PO Q4H PRN PRN Reason: Pain (Mild 1-3)/fever Albuterol/Ipratropium (Duoneb 3.0-0.5 Mg/3 Ml) 3 ml NEB ONETIME ONE Stop: 03/01/17 11:05 Last Admin: 03/01/17 11:34 Dose: 3 ml Albuterol/Ipratropium (Duoneb 3.0-0.5 Mg/3 Ml) 3 ml NEB Q4HRRT [facility] Last Admin: 03/07/17 14:08 Dose: Not Given Albuterol/Ipratropium (Duoneb 3.0-0.5 Mg/3 Ml) 3 ml NEB Q6HRRT [facility] Last Admin: 03/14/17 12:43 Dose: 3 ml Calcium Carbonate/Glycine (Tums) 1,000 mg PO ONETIME ONE Stop: 03/13/17 08:49 Last Admin: 03/13/17 09:16 Dose: 1,000 mg Doxycycline Hyclate (Vibramycin) 100 mg PO Q12HR [facility] Last Admin: 03/03/17 08:11 Dose: 100 mg Furosemide (Lasix) 40 mg IVPUSH Q8H [facility] Last Admin: 03/04/17 00:32 Dose: 40 mg Furosemide (Lasix) 40 mg IVPUSH Q12H [facility] Last Admin: 03/04/17 20:19 Dose: 40 mg Furosemide (Lasix) 40 mg IVPUSH DAILY [facility] Last Admin: 03/09/17 08:44 Dose: 40 mg Heparin Sodium (Porcine) (Heparin Sodium) 5,000 units SUBCUT Q8H [facility] Last Admin: 03/01/17 21:52 Dose: Not Given Heparin Sodium (Porcine) (Heparin Sodium) 5,000 units SUBCUT Q8H [facility] Last Admin: 03/13/17 06:39 Dose: Not Given Heparin Sodium (Porcine) (Heparin Sodium) 5,000 units SUBCUT TID [facility] Last Admin: 03/13/17 15:51 Dose: Not Given Sodium Chloride (Normal Saline) 1,000 mls @ 125 mls/hr IV STAT [facility] Last Admin: 03/01/17 11:15 Dose: 999 mls/hr Piperacillin Sod/Tazobactam (Sod 2.25 gm/ Sodium Chloride) 50 mls @ 100 mls/hr IV ONETIME ONE Stop: 03/01/17 12:00 Last Admin: 03/01/17 11:36 Dose: 100 mls/hr Vancomycin HCl 1 gm/ Sodium (Chloride) 250 mls @ 250 mls/hr IV ONETIME ONE Stop: 03/01/17 12:31 Last Admin: 03/01/17 11:45 Dose: 250 mls/hr Sodium Chloride (Normal Saline) 1,000 mls @ 125 mls/hr IV STAT [facility] Last Admin: 03/01/17 11:50 Dose: 125 mls/hr Sodium Chloride (Normal Saline) 500 mls @ 999 mls/hr IV .Bolus ONE Stop: 03/01/17 12:55 Last Admin: 03/01/17 12:32 Dose: 999 mls/hr Sodium Chloride (Normal Saline) 1,000 mls @ 200 mls/hr IV ASDIRECTED [facility] Last Admin: 03/01/17 23:15 Dose: 200 mls/hr Levofloxacin/Dextrose 750 mg/ (Premix) 150 mls @ 100 mls/hr IV Q24H [facility] Last Admin: 03/01/17 15:26 Dose: Not Given Piperacillin Sod/Tazobactam (Sod 4.5 gm/ Sodium Chloride) 100 mls @ 100 mls/hr IV Q6H [facility] Last Admin: 03/01/17 15:26 Dose: Not Given Vancomycin HCl 0.5 gm/ Sodium (Chloride) 100 mls @ 200 mls/hr IV 03/01/17@1330 [facility] Stop: 03/01/17 13:59 Last Admin: 03/01/17 13:50 Dose: 200 mls/hr Levofloxacin/Dextrose 750 mg/ (Premix) 150 mls @ 100 mls/hr IV Q24H [facility] Stop: 03/01/17 15:29 Levofloxacin/Dextrose 500 mg/ (Premix) 100 mls @ 100 mls/hr IV Q48H [facility] Piperacillin Sod/Tazobactam (Sod 2.25 gm/ Sodium Chloride) 50 mls @ 50 mls/hr IV Q6H [facility] Last Admin: 03/01/17 15:26 Dose: Not Given Piperacillin Sod/Tazobactam (Sod 2.25 gm/ Sodium Chloride) 50 mls @ 50 mls/hr IV Q6H [facility] Vancomycin HCl 1,500 mg/ (Sodium Chloride) 500 mls @ 500 mls/hr IV Q24H [facility] Ceftriaxone Sodium/Dextrose 2 (gm/ Premix) 50 mls @ 100 mls/hr IV Q24H [facility] Last Admin: 03/02/17 13:13 Dose: 100 mls/hr Magnesium Sulfate 4 gm/ Premix 100 mls @ 50 mls/hr IV ONETIME ONE Stop: 03/01/17 21:17 Last Admin: 03/01/17 19:32 Dose: 50 mls/hr Sodium Chloride (Normal Saline) 500 mls @ 999 mls/hr IV .BOLUS [facility] Last Admin: 03/02/17 01:13 Dose: 999 mls/hr Sodium Chloride (Normal Saline) 1,000 mls @ 100 mls/hr IV ASDIRECTED [facility] Last Admin: 03/02/17 15:56 Dose: 100 mls/hr Vancomycin HCl 1,500 mg/ (Sodium Chloride) 500 mls @ 333.333 mls/hr IV Q24H [facility] Last Admin: 03/03/17 08:10 Dose: 333.333 mls/hr Vancomycin HCl 250 mg/ Sodium (Chloride) 100 mls @ 200 mls/hr IV ONETIME ONE Stop: 03/03/17 10:29 Vancomycin HCl 500 mg/ Sodium (Chloride) 100 mls @ 100 mls/hr IV ONETIME ONE Stop: 03/03/17 10:59 Vancomycin HCl 2,000 mg/ (Sodium Chloride) 500 mls @ 250 mls/hr IV Q24H [facility] Last Admin: 03/09/17 08:36 Dose: Not Given Vancomycin HCl 500 mg/ Sodium (Chloride) 100 mls @ 100 mls/hr IV ONETIME ONE Stop: 03/03/17 10:59 Last Admin: 03/03/17 10:39 Dose: 100 mls/hr Magnesium Sulfate 2 gm/ Premix 50 mls @ 25 mls/hr IV ONETIME ONE Stop: 03/04/17 08:21 Last Admin: 03/04/17 06:51 Dose: 25 mls/hr Potassium Phosphate 30 mmole/ (Sodium Chloride) 510 mls @ 100 mls/hr IV NOW ONE Stop: 03/04/17 11:25 Last Admin: 03/04/17 07:55 Dose: 100 mls/hr Potassium Phosphate 30 mmole/ (Sodium Chloride) 260 mls @ 86.667 mls/hr IV NOW ONE Stop: 03/04/17 18:59 Last Admin: 03/04/17 17:28 Dose: 86.667 mls/hr Magnesium Sulfate 2 gm/ Premix 50 mls @ 50 mls/hr IV ONETIME ONE Stop: 03/04/17 16:59 Last Admin: 03/04/17 16:18 Dose: 50 mls/hr Vancomycin HCl 1,500 mg/ (Sodium Chloride) 500 mls @ 250 mls/hr IV Q24H [facility] Last Admin: 03/11/17 12:46 Dose: Not Given Vancomycin HCl 1,250 mg/ (Sodium Chloride) 500 mls @ 250 mls/hr IV Q24H [facility] Last Admin: 03/11/17 12:46 Dose: Not Given Vancomycin HCl 1,250 mg/ (Sodium Chloride) 500 mls @ 250 mls/hr IV Q24H [facility] Last Admin: 03/14/17 09:37 Dose: Not Given Vancomycin HCl 1 gm/ Sodium (Chloride) 250 mls @ 166 mls/hr IV Q24H [facility] Last Admin: 03/14/17 12:27 Dose: 166 mls/hr Insulin Aspart (Novolog) 0 unit SUBCUT TIDAC [facility] PRN Reason: Protocol Last Admin: 03/01/17 17:02 Dose: 2 units Insulin Aspart (Novolog) 0 - 10 unit SUBCUT QID [facility] PRN Reason: Protocol Insulin Aspart (Novolog) 0 unit SUBCUT ACBED [facility] PRN Reason: Protocol Last Admin: 03/14/17 12:41 Dose: 2 units Lidocaine (Xylocaine-Mpf 2%) Confirm Administered Dose 5 ml .ROUTE .STK-MED ONE Stop: 03/01/17 14:20 Last Admin: 03/01/17 15:02 Dose: 5 ml Lorazepam (Ativan) 0.5 mg IVPUSH Q8H PRN PRN Reason: Anxiety Last Admin: 03/12/17 13:17 Dose: 0.5 mg Methylprednisolone Sodium Succinate (Solu-Medrol) 125 mg IVPUSH ONETIME ONE Stop: 03/01/17 11:05 Last Admin: 03/01/17 11:33 Dose: 125 mg Morphine Sulfate (Morphine) 2 mg IVPUSH Q2H PRN PRN Reason: Pain (severe 7-10) Stop: 03/02/17 12:40 Nicotine (Habitrol) 7 mg TRDERM DAILY [facility] Last Admin: 03/14/17 08:25 Dose: 7 mg Ondansetron HCl (Zofran) 8 mg IVPUSH ONETIME ONE Stop: 03/01/17 11:08 Last Admin: 03/01/17 11:33 Dose: 8 mg Ondansetron HCl (Zofran Odt) 4 mg PO Q4H PRN PRN Reason: nausea, able to take PO Ondansetron HCl (Zofran) 4 mg IVPUSH Q4H PRN PRN Reason: Nausea Oxycodone HCl (Oxycodone) 5 mg PO Q4H PRN PRN Reason: Pain (moderate 4-6) Last Admin: 03/09/17 01:13 Dose: 5 mg Polyethylene Glycol (Miralax) 17 gm PO DAILY PRN PRN Reason: Constipation Polyethylene Glycol (Miralax) 17 gm PO DAILY PRN PRN Reason: Constipation Last Admin: 03/13/17 09:16 Dose: 17 gm Potassium Chloride (Klor-Con M20) 20 meq PO ONETIME ONE Stop: 03/02/17 07:01 Last Admin: 03/02/17 07:26 Dose: 20 meq Potassium Chloride (Klor-Con M20) 40 meq PO ONETIME ONE Stop: 03/04/17 06:24 Last Admin: 03/04/17 06:51 Dose: 40 meq Prednisone (Prednisone) 40 mg PO WITHBREAKFAST [facility] Last Admin: 03/14/17 08:25 Dose: 40 mg Vancomycin HCl (Pharmacy To Dose - Vancomycin) 1 dose .XX ASDIRECTED [facility] Vancomycin HCl (Pharmacy To Dose - Vancomycin) 1 dose .XX ASDIRECTED [facility] Wound Care/Dressing Products (Duoderm Cgf) 1 each TOP ASDIRECTED ONE Stop: 03/02/17 23:27 Last Admin: 03/02/17 23:47 Dose: 1 each Wound Care/Dressing Products (Duoderm Cgf) 1 each TOP ASDIRECTED PRN PRN Reason: Ulcer on coccyx Last Admin: 03/13/17 19:01 Dose: 1 each - Free Text/Narrative Note: I was not attending during date of this note.
[2017-03-11] MEDS: Nicotine 7 MG/24 Hr Patch TRDERM SCH (08:36)
[2017-03-11] MEDS: predniSONE 20 MG Tab PO SCH (08:36)
[2017-03-12] MEDS: Albuterol/Ipratropium 3.0-0.5 MG/3 ML Neb Soln NEB SCH ×4 (01:29→17:27)
[2017-03-12] MEDS: Insulin Aspart 100 Units/ML 3 ML Pen SUBCUT SCH ×4 (07:45→22:03)
[2017-03-12] MEDS: Nicotine 7 MG/24 Hr Patch TRDERM SCH (08:40)
[2017-03-12] MEDS: predniSONE 20 MG Tab PO SCH (08:40)
--- NOTE | 2017-03-12 09:19 | PCM.PN ---
- General Info Date of Service: 03/12/17 Admission Dx/Problem (Free Text): Admission Diagnosis/Problem Admission Diagnosis/Problem Pneumonia Subjective Update: No overnight events. Patient still requiring supplemental O2. Patient complains or worsening anxiety. Functional Status: Reports: Pain Controlled, Tolerating Diet, Ambulating, Urinating - Review of Systems General: Reports: No Symptoms HEENT: Reports: No Symptoms Pulmonary: Reports: No Symptoms Cardiovascular: Reports: No Symptoms Gastrointestinal: Reports: No Symptoms Genitourinary: Reports: No Symptoms Musculoskeletal: Reports: No Symptoms Skin: Reports: No Symptoms Neurological: Reports: No Symptoms Psychiatric: Reports: Anxiety - Patient Data Vitals - Most Recent: Last Vital Signs Temp 37.3 C 03/12/17 00:00 Pulse 79 03/12/17 00:00 Resp 19 03/12/17 00:00 BP 124/76 03/12/17 00:00 Pulse Ox 94 L 03/12/17 06:00 Weight - Most Recent: 95.5 kg I&O - Last 24 Hours: Intake & Output 03/11/17 03/12/17 03/12/17 22:59 06:59 14:59 Intake Total 1280 550 Balance 1280 550 Lab Results Last 24 Hours: Laboratory Results - last 24 hr 03/11/17 03/11/17 03/11/17 Range/Units 06:43 11:27 11:49 APTT (18.6-31.3) SEC Sodium (136-146) mmol/L Potassium (3.5-5.1) mmol/L Chloride (98-110) mmol/L Carbon Dioxide (21-31) mmol/L BUN (6.0-23.0) mg/dL Creatinine (0.6-1.5) mg/dL Est Cr Clr Drug Dosing mL/min Estimated GFR (MDRD) ml/min Glucose (60-110) mg/dL POC Glucose 171 H 269 H (60-110) mg/dL Calcium (8.8-10.8) mg/dL Vancomycin Trough 24.6 H (5-15) ug/mL 03/11/17 03/11/17 03/11/17 Range/Units 16:49 17:27 21:42 APTT (18.6-31.3) SEC Sodium (136-146) mmol/L Potassium (3.5-5.1) mmol/L Chloride (98-110) mmol/L Carbon Dioxide (21-31) mmol/L BUN (6.0-23.0) mg/dL Creatinine (0.6-1.5) mg/dL Est Cr Clr Drug Dosing mL/min Estimated GFR (MDRD) ml/min Glucose (60-110) mg/dL POC Glucose 247 H 207 H 269 H (60-110) mg/dL Calcium (8.8-10.8) mg/dL Vancomycin Trough (5-15) ug/mL 03/12/17 03/12/17 03/12/17 Range/Units 06:15 06:15 06:34 APTT 25.4 (18.6-31.3) SEC Sodium 134 L (136-146) mmol/L Potassium 4.3 (3.5-5.1) mmol/L Chloride 105 (98-110) mmol/L Carbon Dioxide 21 (21-31) mmol/L BUN 48 H (6.0-23.0) mg/dL Creatinine 1.5 (0.6-1.5) mg/dL Est Cr Clr Drug Dosing 40.66 mL/min Estimated GFR (MDRD) 45.0 ml/min Glucose 163 H (60-110) mg/dL POC Glucose 160 H (60-110) mg/dL Calcium 8.4 L (8.8-10.8) mg/dL Vancomycin Trough (5-15) ug/mL Jc Results Last 24 Hours: Microbiology 03/07/17 11:22 Aerobic Blood Culture - Preliminary Blood NO GROWTH AFTER 4 DAYS Anaerobic Blood Culture - Preliminary NO GROWTH AFTER 4 DAYS Med Orders - Current: Current Medications Acetaminophen (Tylenol) 650 mg PO Q4H PRN PRN Reason: Pain (Mild 1-3)/fever Albuterol/Ipratropium (Duoneb 3.0-0.5 Mg/3 Ml) 3 ml NEB Q6HRRT [facility] Last Admin: 03/12/17 06:02 Dose: 3 ml Heparin Sodium (Porcine) (Heparin Sodium) 5,000 units SUBCUT Q8H [facility] Last Admin: 03/11/17 22:49 Dose: 5,000 units Vancomycin HCl 1,250 mg/ (Sodium Chloride) 500 mls @ 250 mls/hr IV Q24H [facility] Last Admin: 03/12/17 06:39 Dose: 250 mls/hr Insulin Aspart (Novolog) 0 unit SUBCUT ACBED [facility] PRN Reason: Protocol Last Admin: 03/12/17 07:45 Dose: 2 units Nicotine (Habitrol) 7 mg TRDERM DAILY [facility] Last Admin: 03/12/17 08:40 Dose: 7 mg Ondansetron HCl (Zofran Odt) 4 mg PO Q4H PRN PRN Reason: nausea, able to take PO Ondansetron HCl (Zofran) 4 mg IVPUSH Q4H PRN PRN Reason: Nausea Oxycodone HCl (Oxycodone) 5 mg PO Q4H PRN PRN Reason: Pain (moderate 4-6) Last Admin: 03/09/17 01:13 Dose: 5 mg Polyethylene Glycol (Miralax) 17 gm PO DAILY PRN PRN Reason: Constipation Prednisone (Prednisone) 40 mg PO WITHBREAKFAST [facility] Last Admin: 03/12/17 08:40 Dose: 40 mg Vancomycin HCl (Pharmacy To Dose - Vancomycin) 1 dose .XX ASDIRECTED [facility] Wound Care/Dressing Products (Duoderm Cgf) 1 each TOP ASDIRECTED PRN PRN Reason: Ulcer on coccyx Last Admin: 03/10/17 22:01 Dose: 1 each Discontinued Medications Albuterol/Ipratropium (Duoneb 3.0-0.5 Mg/3 Ml) 3 ml NEB ONETIME ONE Stop: 03/01/17 11:05 Last Admin: 03/01/17 11:34 Dose: 3 ml Albuterol/Ipratropium (Duoneb 3.0-0.5 Mg/3 Ml) 3 ml NEB Q4HRRT [facility] Last Admin: 03/07/17 14:08 Dose: Not Given Doxycycline Hyclate (Vibramycin) 100 mg PO Q12HR [facility] Last Admin: 03/03/17 08:11 Dose: 100 mg Furosemide (Lasix) 40 mg IVPUSH Q8H [facility] Last Admin: 03/04/17 00:32 Dose: 40 mg Furosemide (Lasix) 40 mg IVPUSH Q12H [facility] Last Admin: 03/04/17 20:19 Dose: 40 mg Furosemide (Lasix) 40 mg IVPUSH DAILY [facility] Last Admin: 03/09/17 08:44 Dose: 40 mg Heparin Sodium (Porcine) (Heparin Sodium) 5,000 units SUBCUT Q8H [facility] Last Admin: 03/01/17 21:52 Dose: Not Given Sodium Chloride (Normal Saline) 1,000 mls @ 125 mls/hr IV STAT RAUL Last Admin: 03/01/17 11:15 Dose: 999 mls/hr Piperacillin Sod/Tazobactam (Sod 2.25 gm/ Sodium Chloride) 50 mls @ 100 mls/hr IV ONETIME ONE Stop: 03/01/17 12:00 Last Admin: 03/01/17 11:36 Dose: 100 mls/hr Vancomycin HCl 1 gm/ Sodium (Chloride) 250 mls @ 250 mls/hr IV ONETIME ONE Stop: 03/01/17 12:31 Last Admin: 03/01/17 11:45 Dose: 250 mls/hr Sodium Chloride (Normal Saline) 1,000 mls @ 125 mls/hr IV STAT [facility] Last Admin: 03/01/17 11:50 Dose: 125 mls/hr Sodium Chloride (Normal Saline) 500 mls @ 999 mls/hr IV .Bolus ONE Stop: 03/01/17 12:55 Last Admin: 03/01/17 12:32 Dose: 999 mls/hr Sodium Chloride (Normal Saline) 1,000 mls @ 200 mls/hr IV ASDIRECTED [facility] Last Admin: 03/01/17 23:15 Dose: 200 mls/hr Levofloxacin/Dextrose 750 mg/ (Premix) 150 mls @ 100 mls/hr IV Q24H [facility] Last Admin: 03/01/17 15:26 Dose: Not Given Piperacillin Sod/Tazobactam (Sod 4.5 gm/ Sodium Chloride) 100 mls @ 100 mls/hr IV Q6H [facility] Last Admin: 03/01/17 15:26 Dose: Not Given Vancomycin HCl 0.5 gm/ Sodium (Chloride) 100 mls @ 200 mls/hr IV 03/01/17@1330 [facility] Stop: 03/01/17 13:59 Last Admin: 03/01/17 13:50 Dose: 200 mls/hr Levofloxacin/Dextrose 750 mg/ (Premix) 150 mls @ 100 mls/hr IV Q24H [facility] Stop: 03/01/17 15:29 Levofloxacin/Dextrose 500 mg/ (Premix) 100 mls @ 100 mls/hr IV Q48H [facility] Piperacillin Sod/Tazobactam (Sod 2.25 gm/ Sodium Chloride) 50 mls @ 50 mls/hr IV Q6H [facility] Last Admin: 03/01/17 15:26 Dose: Not Given Piperacillin Sod/Tazobactam (Sod 2.25 gm/ Sodium Chloride) 50 mls @ 50 mls/hr IV Q6H [facility] Vancomycin HCl 1,500 mg/ (Sodium Chloride) 500 mls @ 500 mls/hr IV Q24H [facility] Ceftriaxone Sodium/Dextrose 2 (gm/ Premix) 50 mls @ 100 mls/hr IV Q24H [facility] Last Admin: 03/02/17 13:13 Dose: 100 mls/hr Magnesium Sulfate 4 gm/ Premix 100 mls @ 50 mls/hr IV ONETIME ONE Stop: 03/01/17 21:17 Last Admin: 03/01/17 19:32 Dose: 50 mls/hr Sodium Chloride (Normal Saline) 500 mls @ 999 mls/hr IV .BOLUS [facility] Last Admin: 03/02/17 01:13 Dose: 999 mls/hr Sodium Chloride (Normal Saline) 1,000 mls @ 100 mls/hr IV ASDIRECTED [facility] Last Admin: 03/02/17 15:56 Dose: 100 mls/hr Vancomycin HCl 1,500 mg/ (Sodium Chloride) 500 mls @ 333.333 mls/hr IV Q24H [facility] Last Admin: 03/03/17 08:10 Dose: 333.333 mls/hr Vancomycin HCl 250 mg/ Sodium (Chloride) 100 mls @ 200 mls/hr IV ONETIME ONE Stop: 03/03/17 10:29 Vancomycin HCl 500 mg/ Sodium (Chloride) 100 mls @ 100 mls/hr IV ONETIME ONE Stop: 03/03/17 10:59 Vancomycin HCl 2,000 mg/ (Sodium Chloride) 500 mls @ 250 mls/hr IV Q24H [facility] Last Admin: 03/09/17 08:36 Dose: Not Given Vancomycin HCl 500 mg/ Sodium (Chloride) 100 mls @ 100 mls/hr IV ONETIME ONE Stop: 03/03/17 10:59 Last Admin: 03/03/17 10:39 Dose: 100 mls/hr Magnesium Sulfate 2 gm/ Premix 50 mls @ 25 mls/hr IV ONETIME ONE Stop: 03/04/17 08:21 Last Admin: 03/04/17 06:51 Dose: 25 mls/hr Potassium Phosphate 30 mmole/ (Sodium Chloride) 510 mls @ 100 mls/hr IV NOW ONE Stop: 03/04/17 11:25 Last Admin: 03/04/17 07:55 Dose: 100 mls/hr Potassium Phosphate 30 mmole/ (Sodium Chloride) 260 mls @ 86.667 mls/hr IV NOW ONE Stop: 03/04/17 18:59 Last Admin: 03/04/17 17:28 Dose: 86.667 mls/hr Magnesium Sulfate 2 gm/ Premix 50 mls @ 50 mls/hr IV ONETIME ONE Stop: 03/04/17 16:59 Last Admin: 03/04/17 16:18 Dose: 50 mls/hr Vancomycin HCl 1,500 mg/ (Sodium Chloride) 500 mls @ 250 mls/hr IV Q24H [facility] Last Admin: 03/11/17 12:46 Dose: Not Given Vancomycin HCl 1,250 mg/ (Sodium Chloride) 500 mls @ 250 mls/hr IV Q24H [facility] Last Admin: 03/11/17 12:46 Dose: Not Given Insulin Aspart (Novolog) 0 unit SUBCUT TIDAC [facility] PRN Reason: Protocol Last Admin: 03/01/17 17:02 Dose: 2 units Insulin Aspart (Novolog) 0 - 10 unit SUBCUT QID [facility] PRN Reason: Protocol Lidocaine (Xylocaine-Mpf 2%) Confirm Administered Dose 5 ml .ROUTE .STK-MED ONE Stop: 03/01/17 14:20 Last Admin: 03/01/17 15:02 Dose: 5 ml Methylprednisolone Sodium Succinate (Solu-Medrol) 125 mg IVPUSH ONETIME ONE Stop: 03/01/17 11:05 Last Admin: 03/01/17 11:33 Dose: 125 mg Morphine Sulfate (Morphine) 2 mg IVPUSH Q2H PRN PRN Reason: Pain (severe 7-10) Stop: 03/02/17 12:40 Ondansetron HCl (Zofran) 8 mg IVPUSH ONETIME ONE Stop: 03/01/17 11:08 Last Admin: 03/01/17 11:33 Dose: 8 mg Potassium Chloride (Klor-Con M20) 20 meq PO ONETIME ONE Stop: 03/02/17 07:01 Last Admin: 03/02/17 07:26 Dose: 20 meq Potassium Chloride (Klor-Con M20) 40 meq PO ONETIME ONE Stop: 03/04/17 06:24 Last Admin: 03/04/17 06:51 Dose: 40 meq Vancomycin HCl (Pharmacy To Dose - Vancomycin) 1 dose .XX ASDIRECTED [facility] Wound Care/Dressing Products (Duoderm Cgf) 1 each TOP ASDIRECTED ONE Stop: 03/02/17 23:27 Last Admin: 03/02/17 23:47 Dose: 1 each - Exam Quality Assessment: Supplemental Oxygen General: Alert, Oriented, No Acute Distress HEENT: Pupils Equal, Pupils Reactive, EOMI, Mucous Membr. Moist/[place] Neck: Supple, No JVD Lungs: Normal Respiratory Effort, Decreased Breath Sounds, Crackles Cardiovascular: Regular Rate, Regular Rhythm GI/Abdominal Exam: Normal Bowel Sounds, Soft, Non-Tender, No Distention Back Exam: Normal Inspection Extremities: Normal Inspection, No Pedal Edema, Normal Capillary Refill Neurological: No New Focal Deficit Psy/Mental Status: Alert, Normal Affect, Normal Mood - Problem List Review Problem List Initiated/Reviewed/Updated: Yes - My Orders Last 24 Hours: My Active Orders 03/11/17 15:12 PICC Line Placement NC [CR] Urgent 03/13/17 05:11 BASIC METABOLIC PANEL,BMP [CHEM] AM CBC WITH AUTO DIFF [HEME] AM PTT,PARTIAL THROMBOPLSTIN TIME [COAG] AM 03/14/17 05:11 BASIC METABOLIC PANEL,BMP [CHEM] AM CBC WITH AUTO DIFF [HEME] AM PTT,PARTIAL THROMBOPLSTIN TIME [COAG] AM 03/15/17 05:11 BASIC METABOLIC PANEL,BMP [CHEM] AM CBC WITH AUTO DIFF [HEME] AM PTT,PARTIAL THROMBOPLSTIN TIME [COAG] AM 03/16/17 05:11 BASIC METABOLIC PANEL,BMP [CHEM] AM CBC WITH AUTO DIFF [HEME] AM PTT,PARTIAL THROMBOPLSTIN TIME [COAG] AM 03/17/17 05:11 BASIC METABOLIC PANEL,BMP [CHEM] AM CBC WITH AUTO DIFF [HEME] AM PTT,PARTIAL THROMBOPLSTIN TIME [COAG] AM 03/18/17 05:11 BASIC METABOLIC PANEL,BMP [CHEM] AM CBC WITH AUTO DIFF [HEME] AM PTT,PARTIAL THROMBOPLSTIN TIME [COAG] AM 03/19/17 05:11 BASIC METABOLIC PANEL,BMP [CHEM] AM CBC WITH AUTO DIFF [HEME] AM PTT,PARTIAL THROMBOPLSTIN TIME [COAG] AM 03/20/17 05:11 BASIC METABOLIC PANEL,BMP [CHEM] AM CBC WITH AUTO DIFF [HEME] AM PTT,PARTIAL THROMBOPLSTIN TIME [COAG] AM 03/21/17 05:11 CBC WITH AUTO DIFF [HEME] AM PTT,PARTIAL THROMBOPLSTIN TIME [COAG] AM 03/22/17 05:11 CBC WITH AUTO DIFF [HEME] AM - Plan Plan:: 82 yo male with pmh of CHF, Htn, 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, Insulin-dependent DMII and gout admitted 03/01/17 to ICU for Sepsis secondary to MRSA Pneumonia. #MRSA pneumonia with bacteremia -BC no growth as of 03/05/17, Leukocytosis resolved -PICC line placed -Hypoxia still present plan: -continue vancomycin, currently on Day 8/14 of IV antibiotic therapy #Hypoxia, secondary to above -wean O2 -continue prednisone PO for suspected underlying respiratory process #DMII -ISS medium dose #Thrombocytopenia -continue to monitor #anxiety -start ativan 0.5 mg IV [id number] PRN for anxiety VTE: SCD, holding heparin due to thrombocytopenia
[2017-03-12] MEDS ORDERED: LORazepam 2 MG/ML MDV IVPUSH PRN (11:34)
[2017-03-12] MEDS: Heparin Sodium 5,000 Units/ML Vial SUBCUT SCH ×2 (11:45→22:04)
[2017-03-12] MEDS: Polyethylene Glycol 3350 Powder 17 GM Packet PO PRN (13:13)
[2017-03-13] MEDS: Albuterol/Ipratropium 3.0-0.5 MG/3 ML Neb Soln NEB SCH ×4 (00:06→17:53)
[2017-03-13] MEDS: Heparin Sodium 5,000 Units/ML Vial SUBCUT SCH ×3 (06:39→15:51)
[2017-03-13] MEDS: Insulin Aspart 100 Units/ML 3 ML Pen SUBCUT SCH ×4 (07:31→21:43)
--- NOTE | 2017-03-13 08:11 | PCM.PN ---
- General Info Date of Service: 03/13/17 Admission Dx/Problem (Free Text): Admission Diagnosis/Problem Admission Diagnosis/Problem Pneumonia Subjective Update: Still very sob with any movement. O2 sat drops into mid to low 80's. Denies pain, n/v Eating and drinking well. Functional Status: Reports: Pain Controlled, Tolerating Diet, Incentive Spirometry - Review of Systems General: Reports: Weakness, Fatigue. Denies: Fever HEENT: Denies: Headaches, Visual Changes Pulmonary: Reports: Shortness of Breath, Cough. Denies: Sputum, Hemoptysis Cardiovascular: Denies: Chest Pain, Palpitations, Edema Gastrointestinal: Denies: Abdominal Pain, Nausea, Vomiting Genitourinary: Denies: Dysuria, Hematuria Musculoskeletal: Denies: Neck Pain, Leg Pain Skin: Denies: Cyanosis Neurological: Denies: Confusion, Dizziness, Headache Psychiatric: Denies: Confusion - Patient Data Vitals - Most Recent: Last Vital Signs Temp 98 F 03/13/17 04:00 Pulse 72 03/13/17 04:00 Resp 18 03/13/17 04:00 BP 158/69 H 03/13/17 04:00 Pulse Ox 95 03/13/17 06:00 Weight - Most Recent: 93.5 kg I&O - Last 24 Hours: Intake & Output 03/12/17 03/13/17 03/13/17 22:59 06:59 14:59 Intake Total 1600 700 Output Total 851 Balance 749 700 Lab Results Last 24 Hours: Laboratory Results - last 24 hr 03/12/17 03/12/17 03/12/17 Range/Units 06:15 12:26 17:08 WBC 11.70 H (4.0-11.0) K/uL RBC 4.08 L (4.50-5.90) M/uL Hgb 11.8 L (13.0-17.0) g/dL Hct 36.1 L (38.0-50.0) % MCV 88.5 (80.0-98.0) fL MCH 28.9 (27.0-32.0) pg MCHC 32.7 (31.0-37.0) g/dL RDW Std Deviation 46.4 (28.0-62.0) fl RDW Coeff of Tanisha 14 (11.0-15.0) % Plt Count 113 L (150-400) K/uL MPV 13.20 H (7.40-12.00) fL Neut % (Auto) 76.9 (48.0-80.0) % Lymph % (Auto) 16.9 (16.0-40.0) % [place] % (Auto) 6.0 (0.0-15.0) % Eos % (Auto) 0.1 (0.0-7.0) % Baso % (Auto) 0.1 (0.0-1.5) % Neut # (Auto) 9.0 H (1.4-5.7) K/uL Lymph # (Auto) 2.0 (0.6-2.4) K/uL [place] # (Auto) 0.7 (0.0-0.8) K/uL Eos # (Auto) 0.0 (0.0-0.7) K/uL Baso # (Auto) 0.0 (0.0-0.1) K/uL Nucleated RBC % 0.0 /100WBC Nucleated RBCs # 0 K/uL APTT (18.6-31.3) SEC Sodium (136-146) mmol/L Potassium (3.5-5.1) mmol/L Chloride (98-110) mmol/L Carbon Dioxide (21-31) mmol/L BUN (6.0-23.0) mg/dL Creatinine (0.6-1.5) mg/dL Est Cr Clr Drug Dosing mL/min Estimated GFR (MDRD) ml/min Glucose (60-110) mg/dL POC Glucose 211 H 265 H (60-110) mg/dL Calcium (8.8-10.8) mg/dL 03/12/17 03/13/17 03/13/17 Range/Units 22:01 04:40 04:40 WBC (4.0-11.0) K/uL RBC (4.50-5.90) M/uL Hgb (13.0-17.0) g/dL Hct (38.0-50.0) % MCV (80.0-98.0) fL MCH (27.0-32.0) pg MCHC (31.0-37.0) g/dL RDW Std Deviation (28.0-62.0) fl RDW Coeff of Tanisha (11.0-15.0) % Plt Count (150-400) K/uL MPV (7.40-12.00) fL Neut % (Auto) (48.0-80.0) % Lymph % (Auto) (16.0-40.0) % [place] % (Auto) (0.0-15.0) % Eos % (Auto) (0.0-7.0) % Baso % (Auto) (0.0-1.5) % Neut # (Auto) (1.4-5.7) K/uL Lymph # (Auto) (0.6-2.4) K/uL [place] # (Auto) (0.0-0.8) K/uL Eos # (Auto) (0.0-0.7) K/uL Baso # (Auto) (0.0-0.1) K/uL Nucleated RBC % /100WBC Nucleated RBCs # K/uL APTT 23.3 (18.6-31.3) SEC Sodium 137 (136-146) mmol/L Potassium 4.8 (3.5-5.1) mmol/L Chloride 106 (98-110) mmol/L Carbon Dioxide 23 (21-31) mmol/L BUN 43 H (6.0-23.0) mg/dL Creatinine 1.5 (0.6-1.5) mg/dL Est Cr Clr Drug Dosing 40.66 mL/min Estimated GFR (MDRD) 45.0 ml/min Glucose 181 H (60-110) mg/dL POC Glucose 258 H (60-110) mg/dL Calcium 8.6 L (8.8-10.8) mg/dL 03/13/17 03/13/17 Range/Units 04:40 06:30 WBC 13.38 H (4.0-11.0) K/uL RBC 4.31 L (4.50-5.90) M/uL Hgb 12.2 L (13.0-17.0) g/dL Hct 38.0 (38.0-50.0) % MCV 88.2 (80.0-98.0) fL MCH 28.3 (27.0-32.0) pg MCHC 32.1 (31.0-37.0) g/dL RDW Std Deviation 46.4 (28.0-62.0) fl RDW Coeff of Tanisha 14 (11.0-15.0) % Plt Count 90 L (150-400) K/uL MPV 12.10 H (7.40-12.00) fL Neut % (Auto) 80.1 H (48.0-80.0) % Lymph % (Auto) 12.9 L (16.0-40.0) % [place] % (Auto) 6.8 (0.0-15.0) % Eos % (Auto) 0.1 (0.0-7.0) % Baso % (Auto) 0.1 (0.0-1.5) % Neut # (Auto) 10.7 H (1.4-5.7) K/uL Lymph # (Auto) 1.7 (0.6-2.4) K/uL [place] # (Auto) 0.9 H (0.0-0.8) K/uL Eos # (Auto) 0.0 (0.0-0.7) K/uL Baso # (Auto) 0.0 (0.0-0.1) K/uL Nucleated RBC % 0.0 /100WBC Nucleated RBCs # 0 K/uL APTT (18.6-31.3) SEC Sodium (136-146) mmol/L Potassium (3.5-5.1) mmol/L Chloride (98-110) mmol/L Carbon Dioxide (21-31) mmol/L BUN (6.0-23.0) mg/dL Creatinine (0.6-1.5) mg/dL Est Cr Clr Drug Dosing mL/min Estimated GFR (MDRD) ml/min Glucose (60-110) mg/dL POC Glucose 164 H (60-110) mg/dL Calcium (8.8-10.8) mg/dL Cj Results Last 24 Hours: Microbiology 03/07/17 11:22 Aerobic Blood Culture - Final Blood NO GROWTH AFTER 5 DAYS Anaerobic Blood Culture - Final NO GROWTH AFTER 5 DAYS Med Orders - Current: Current Medications Acetaminophen (Tylenol) 650 mg PO Q4H PRN PRN Reason: Pain (Mild 1-3)/fever Albuterol/Ipratropium (Duoneb 3.0-0.5 Mg/3 Ml) 3 ml NEB Q6HRRT RAUL Last Admin: 03/13/17 05:54 Dose: 3 ml Heparin Sodium (Porcine) (Heparin Sodium) 5,000 units SUBCUT TID [facility] Last Admin: 03/13/17 06:40 Dose: Not Given Vancomycin HCl 1,250 mg/ (Sodium Chloride) 500 mls @ 250 mls/hr IV Q24H [facility] Last Admin: 03/13/17 06:27 Dose: 250 mls/hr Insulin Aspart (Novolog) 0 unit SUBCUT ACBED [facility] PRN Reason: Protocol Last Admin: 03/13/17 07:31 Dose: 2 units Lorazepam (Ativan) 0.5 mg IVPUSH Q8H PRN PRN Reason: Anxiety Last Admin: 03/12/17 13:17 Dose: 0.5 mg Nicotine (Habitrol) 7 mg TRDERM DAILY [facility] Last Admin: 03/12/17 08:40 Dose: 7 mg Ondansetron HCl (Zofran Odt) 4 mg PO Q4H PRN PRN Reason: nausea, able to take PO Ondansetron HCl (Zofran) 4 mg IVPUSH Q4H PRN PRN Reason: Nausea Oxycodone HCl (Oxycodone) 5 mg PO Q4H PRN PRN Reason: Pain (moderate 4-6) Last Admin: 03/09/17 01:13 Dose: 5 mg Polyethylene Glycol (Miralax) 17 gm PO DAILY PRN PRN Reason: Constipation Last Admin: 03/12/17 13:13 Dose: 17 gm Prednisone (Prednisone) 40 mg PO WITHBREAKFAST [facility] Last Admin: 03/12/17 08:40 Dose: 40 mg Vancomycin HCl (Pharmacy To Dose - Vancomycin) 1 dose .XX ASDIRECTED [facility] Wound Care/Dressing Products (Duoderm Cgf) 1 each TOP ASDIRECTED PRN PRN Reason: Ulcer on coccyx Last Admin: 03/10/17 22:01 Dose: 1 each Discontinued Medications Albuterol/Ipratropium (Duoneb 3.0-0.5 Mg/3 Ml) 3 ml NEB ONETIME ONE Stop: 03/01/17 11:05 Last Admin: 03/01/17 11:34 Dose: 3 ml Albuterol/Ipratropium (Duoneb 3.0-0.5 Mg/3 Ml) 3 ml NEB Q4HRRT [facility] Last Admin: 03/07/17 14:08 Dose: Not Given Doxycycline Hyclate (Vibramycin) 100 mg PO Q12HR [facility] Last Admin: 03/03/17 08:11 Dose: 100 mg Furosemide (Lasix) 40 mg IVPUSH Q8H [facility] Last Admin: 03/04/17 00:32 Dose: 40 mg Furosemide (Lasix) 40 mg IVPUSH Q12H [facility] Last Admin: 03/04/17 20:19 Dose: 40 mg Furosemide (Lasix) 40 mg IVPUSH DAILY [facility] Last Admin: 03/09/17 08:44 Dose: 40 mg Heparin Sodium (Porcine) (Heparin Sodium) 5,000 units SUBCUT Q8H [facility] Last Admin: 03/01/17 21:52 Dose: Not Given Heparin Sodium (Porcine) (Heparin Sodium) 5,000 units SUBCUT Q8H [facility] Last Admin: 03/13/17 06:39 Dose: Not Given Sodium Chloride (Normal Saline) 1,000 mls @ 125 mls/hr IV STAT [facility] Last Admin: 03/01/17 11:15 Dose: 999 mls/hr Piperacillin Sod/Tazobactam (Sod 2.25 gm/ Sodium Chloride) 50 mls @ 100 mls/hr IV ONETIME ONE Stop: 03/01/17 12:00 Last Admin: 03/01/17 11:36 Dose: 100 mls/hr Vancomycin HCl 1 gm/ Sodium (Chloride) 250 mls @ 250 mls/hr IV ONETIME ONE Stop: 03/01/17 12:31 Last Admin: 03/01/17 11:45 Dose: 250 mls/hr Sodium Chloride (Normal Saline) 1,000 mls @ 125 mls/hr IV STAT [facility] Last Admin: 03/01/17 11:50 Dose: 125 mls/hr Sodium Chloride (Normal Saline) 500 mls @ 999 mls/hr IV .Bolus ONE Stop: 03/01/17 12:55 Last Admin: 03/01/17 12:32 Dose: 999 mls/hr Sodium Chloride (Normal Saline) 1,000 mls @ 200 mls/hr IV ASDIRECTED [facility] Last Admin: 03/01/17 23:15 Dose: 200 mls/hr Levofloxacin/Dextrose 750 mg/ (Premix) 150 mls @ 100 mls/hr IV Q24H [facility] Last Admin: 03/01/17 15:26 Dose: Not Given Piperacillin Sod/Tazobactam (Sod 4.5 gm/ Sodium Chloride) 100 mls @ 100 mls/hr IV Q6H [facility] Last Admin: 03/01/17 15:26 Dose: Not Given Vancomycin HCl 0.5 gm/ Sodium (Chloride) 100 mls @ 200 mls/hr IV 03/01/17@1330 RAUL Stop: 03/01/17 13:59 Last Admin: 03/01/17 13:50 Dose: 200 mls/hr Levofloxacin/Dextrose 750 mg/ (Premix) 150 mls @ 100 mls/hr IV Q24H [facility] Stop: 03/01/17 15:29 Levofloxacin/Dextrose 500 mg/ (Premix) 100 mls @ 100 mls/hr IV Q48H [facility] Piperacillin Sod/Tazobactam (Sod 2.25 gm/ Sodium Chloride) 50 mls @ 50 mls/hr IV Q6H [facility] Last Admin: 03/01/17 15:26 Dose: Not Given Piperacillin Sod/Tazobactam (Sod 2.25 gm/ Sodium Chloride) 50 mls @ 50 mls/hr IV Q6H [facility] Vancomycin HCl 1,500 mg/ (Sodium Chloride) 500 mls @ 500 mls/hr IV Q24H [facility] Ceftriaxone Sodium/Dextrose 2 (gm/ Premix) 50 mls @ 100 mls/hr IV Q24H [facility] Last Admin: 03/02/17 13:13 Dose: 100 mls/hr Magnesium Sulfate 4 gm/ Premix 100 mls @ 50 mls/hr IV ONETIME ONE Stop: 03/01/17 21:17 Last Admin: 03/01/17 19:32 Dose: 50 mls/hr Sodium Chloride (Normal Saline) 500 mls @ 999 mls/hr IV .BOLUS [facility] Last Admin: 03/02/17 01:13 Dose: 999 mls/hr Sodium Chloride (Normal Saline) 1,000 mls @ 100 mls/hr IV ASDIRECTED [facility] Last Admin: 03/02/17 15:56 Dose: 100 mls/hr Vancomycin HCl 1,500 mg/ (Sodium Chloride) 500 mls @ 333.333 mls/hr IV Q24H [facility] Last Admin: 03/03/17 08:10 Dose: 333.333 mls/hr Vancomycin HCl 250 mg/ Sodium (Chloride) 100 mls @ 200 mls/hr IV ONETIME ONE Stop: 03/03/17 10:29 Vancomycin HCl 500 mg/ Sodium (Chloride) 100 mls @ 100 mls/hr IV ONETIME ONE Stop: 03/03/17 10:59 Vancomycin HCl 2,000 mg/ (Sodium Chloride) 500 mls @ 250 mls/hr IV Q24H [facility] Last Admin: 03/09/17 08:36 Dose: Not Given Vancomycin HCl 500 mg/ Sodium (Chloride) 100 mls @ 100 mls/hr IV ONETIME ONE Stop: 03/03/17 10:59 Last Admin: 03/03/17 10:39 Dose: 100 mls/hr Magnesium Sulfate 2 gm/ Premix 50 mls @ 25 mls/hr IV ONETIME ONE Stop: 03/04/17 08:21 Last Admin: 03/04/17 06:51 Dose: 25 mls/hr Potassium Phosphate 30 mmole/ (Sodium Chloride) 510 mls @ 100 mls/hr IV NOW ONE Stop: 03/04/17 11:25 Last Admin: 03/04/17 07:55 Dose: 100 mls/hr Potassium Phosphate 30 mmole/ (Sodium Chloride) 260 mls @ 86.667 mls/hr IV NOW ONE Stop: 03/04/17 18:59 Last Admin: 03/04/17 17:28 Dose: 86.667 mls/hr Magnesium Sulfate 2 gm/ Premix 50 mls @ 50 mls/hr IV ONETIME ONE Stop: 03/04/17 16:59 Last Admin: 03/04/17 16:18 Dose: 50 mls/hr Vancomycin HCl 1,500 mg/ (Sodium Chloride) 500 mls @ 250 mls/hr IV Q24H [facility] Last Admin: 03/11/17 12:46 Dose: Not Given Vancomycin HCl 1,250 mg/ (Sodium Chloride) 500 mls @ 250 mls/hr IV Q24H [facility] Last Admin: 03/11/17 12:46 Dose: Not Given Insulin Aspart (Novolog) 0 unit SUBCUT TIDAC [facility] PRN Reason: Protocol Last Admin: 03/01/17 17:02 Dose: 2 units Insulin Aspart (Novolog) 0 - 10 unit SUBCUT QID [facility] PRN Reason: Protocol Lidocaine (Xylocaine-Mpf 2%) Confirm Administered Dose 5 ml .ROUTE .STK-MED ONE Stop: 03/01/17 14:20 Last Admin: 03/01/17 15:02 Dose: 5 ml Methylprednisolone Sodium Succinate (Solu-Medrol) 125 mg IVPUSH ONETIME ONE Stop: 03/01/17 11:05 Last Admin: 03/01/17 11:33 Dose: 125 mg Morphine Sulfate (Morphine) 2 mg IVPUSH Q2H PRN PRN Reason: Pain (severe 7-10) Stop: 03/02/17 12:40 Ondansetron HCl (Zofran) 8 mg IVPUSH ONETIME ONE Stop: 03/01/17 11:08 Last Admin: 03/01/17 11:33 Dose: 8 mg Polyethylene Glycol (Miralax) 17 gm PO DAILY PRN PRN Reason: Constipation Potassium Chloride (Klor-Con M20) 20 meq PO ONETIME ONE Stop: 03/02/17 07:01 Last Admin: 03/02/17 07:26 Dose: 20 meq Potassium Chloride (Klor-Con M20) 40 meq PO ONETIME ONE Stop: 03/04/17 06:24 Last Admin: 03/04/17 06:51 Dose: 40 meq Vancomycin HCl (Pharmacy To Dose - Vancomycin) 1 dose .XX ASDIRECTED [facility] Wound Care/Dressing Products (Duoderm Cgf) 1 each TOP ASDIRECTED ONE Stop: 03/02/17 23:27 Last Admin: 03/02/17 23:47 Dose: 1 each - Exam Quality Assessment: DVT Prophylaxis General: Alert, Oriented, Cooperative, No Acute Distress HEENT: Pupils Equal, Pupils Reactive, EOMI, Mucous Membr. Moist/[place] Neck: Supple, Trachea Midline Lungs: Decreased Breath Sounds, Crackles, Rales, Rhonchi Cardiovascular: Regular Rate, Regular Rhythm GI/Abdominal Exam: Normal Bowel Sounds, Soft, Non-Tender, No Organomegaly, No Distention Back Exam: Normal Inspection Extremities: Normal Inspection, Normal Range of Motion, Non-Tender, No Pedal Edema, Normal Capillary Refill Peripheral Pulses: 2+: Radial (L), Radial (R), Posterior Tibial (L), Posterior Tibial (R), Dorsalis Pedis (L), Dorsalis Pedis (R) Skin: Warm, Dry, Intact Neurological: No New Focal Deficit Psy/Mental Status: Alert, Normal Affect, Normal Mood - Problem List & Annotations (1) Sepsis due to Gram-negative organism with septic shock SNOMED Code(s): 057718753 Code(s): A41.50 - GRAM-NEGATIVE SEPSIS, UNSPECIFIED; R65.21 - SEVERE SEPSIS WITH SEPTIC SHOCK Status: Suspected Priority: High Current Visit: Yes (2) Pneumonia due to gram-negative bacteria SNOMED Code(s): 891614832 Code(s): J15.6 - PNEUMONIA DUE TO OTHER GRAM-NEGATIVE BACTERIA Status: Suspected Priority: High Current Visit: Yes (3) CHF (congestive heart failure) SNOMED Code(s): 25710334 Code(s): I50.9 - HEART FAILURE, UNSPECIFIED Status: Chronic Priority: High Current Visit: Yes Qualifiers: Congestive heart failure type: unspecified congestive heart failure type (4) Hypertension SNOMED Code(s): 94019591 Code(s): I10 - ESSENTIAL (PRIMARY) HYPERTENSION Status: Chronic Priority : Low Current Visit: Yes Qualifiers: Hypertension type: unspecified Qualified Code(s): I10 - Essential (primary ) hypertension (5) Insulin dependent diabetes mellitus SNOMED Code(s): 29524986 Code(s): E11.9 - TYPE 2 DIABETES MELLITUS WITHOUT COMPLICATIONS; Z79.4 - DETENTION (CURRENT) USE OF INSULIN Status: Chronic Priority: Low Current Visit: Yes (6) History of TIA (transient ischemic attack) SNOMED Code(s): 903068473 Code(s): Z86.73 - PRSNL HX OF TIA (TIA), AND CEREB INFRC W/O RESID DEFICITS Status: Chronic Priority: Low Current Visit: Yes (7) Gout SNOMED Code(s): 22203170 Code(s): M10.9 - GOUT, UNSPECIFIED Status: Chronic Priority: Low Current Visit: Yes Qualifiers: Gout etiology: unspecified cause Chronicity: unspecified Laterality: unspecified laterality (8) Sepsis due to Staphylococcus aureus with acute respiratory failure SNOMED Code(s): 887299029 Code(s): A41.01 - SEPSIS DUE TO METHICILLIN SUSCEPTIBLE STAPHYLOCOCCUS AUREUS ; R65.20 - SEVERE SEPSIS WITHOUT SEPTIC SHOCK; J96.00 - ACUTE RESPIRATORY FAILURE, UNSP W HYPOXIA OR HYPERCAPNIA Status: Acute Priority: High Current Visit: Yes - Problem List Review Problem List Initiated/Reviewed/Updated: Yes - My Orders Last 24 Hours: My Active Orders 03/12/17 08:42 [employer] Discontinue [Cardiac Monitoring Discontinue] [RC] Click to Edit 03/12/17 11:00 Heparin Sodium 5,000 units SUBCUT TID - Plan Plan:: 82 yo male admitted 03/01/17 for shortness of breath found to have MRSA pneumonia with bactermia with pmh of CHF, Htn, 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, Insulin- dependent DMII and gout admitted 03/01/17 to ICU for Sepsis secondary to MRSA Pneumonia. #MRSA pneumonia with bacteremia -BC no growth as of 03/05/17 -PICC line placed contininue day 9 of 14 Vanc antibiotic therapy. -Hypoxia still present #Hypoxia, secondary to above -wean O2 -continue prednisone PO for suspected underlying respiratory process #DMII -ISS medium dose #Thrombocytopenia -continue to monitor #anxiety -continue ativan 0.5 mg IV [id number] PRN for anxiety VTE: SCD, holding heparin due to thrombocytopenia
[2017-03-13] MEDS ORDERED: Calcium Carbonate 500 MG Tab.Chew PO ONE (08:48)
[2017-03-13] MEDS: predniSONE 20 MG Tab PO SCH (08:58)
[2017-03-13] MEDS: Nicotine 7 MG/24 Hr Patch TRDERM SCH (08:58)
[2017-03-13] MEDS: Polyethylene Glycol 3350 Powder 17 GM Packet PO PRN (09:16)
[2017-03-13] MEDS: Hydrocolloid Dressing 4x4 Bandage TOP PRN (19:01)
[2017-03-14] MEDS: Albuterol/Ipratropium 3.0-0.5 MG/3 ML Neb Soln NEB SCH ×3 (00:01→12:43)
[2017-03-14] MEDS: Insulin Aspart 100 Units/ML 3 ML Pen SUBCUT SCH ×2 (06:50→12:41)
[2017-03-14] MEDS: predniSONE 20 MG Tab PO SCH (08:25)
[2017-03-14] MEDS: Nicotine 7 MG/24 Hr Patch TRDERM SCH (08:25)
[2017-03-14 08:26] VITALS: BP 138/70
--- NOTE | 2017-03-14 08:41 | CR ---
EXAMINATION: Fluoro and ultrasound guided right-sided PICC line placement. HISTORY: Long-term antibiotics. TECHNIQUE/FINDINGS: After written informed consent was obtained from the patient using ultrasound an d Fluoro guidance under aseptic conditions utilizing 1% lidocaine as local anesthesia right basilic v ein was accessed and 5 [place] PICC catheter was deployed with its tip in the distal superior vena cav a. The catheter flushes and withdraws blood well. The catheter is flushed with the diluted heparin. The catheter secured well. IMPRESSION: Successful Fluoro and ultrasound guided PICC line placement.
--- NOTE | 2017-03-14 11:42 | PCM.DCSUM1 ---
Discharge Summary - Hospital Course HPI Initial Comments: 82 yo male admitted 03/01/17 to ICU secondary to discovered MRSA pneumonia and bacteremia with pmh of CHF, Htn, 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, Insulin-dependent DMII and gout. Brief History: Patient presented to ED with increasing shortness of breath x 1 week. Reported associated fever, chills, nausea, vomiting and diarrhea x 1 week. Stated he awoke on day of admission and was unable to eat secondary to sob and decreased appetite. . In ED intial BP in low 70's/30's improved to 80/ 50 with 1 L NS bolus. Found to have WBC of 22k, lactate 6.1, BUN 78, Cr 3.2. CXR revealing mild cardiomegaly with mild interstitial pulmonary edema and early infiltrate in medial right lung base. Patient was alert and orientated in moderate distress but able to answer questions with O2 sat of high 80's to 90's on 15 L nonrebreather. Granddaughter and daughter at bedside. Denied chest pain, palpitations, syncopal episodes, abdominal pain, or focal neurologic deficits. Has had some pain with urination. - Discharge Data Discharge Date: 03/14/17 Discharge Disposition: Home, [facility] 06 Condition: Good - Discharge Diagnosis/Problem(s) (1) Sepsis due to Gram-negative organism with septic shock SNOMED Code(s): 027021387 ICD Code: A41.50 - GRAM-NEGATIVE SEPSIS, UNSPECIFIED; R65.21 - SEVERE SEPSIS WITH SEPTIC SHOCK Status: Suspected Priority: High Current Visit: Yes (2) Pneumonia due to gram-negative bacteria SNOMED Code(s): 415164203 ICD Code: J15.6 - PNEUMONIA DUE TO OTHER GRAM-NEGATIVE BACTERIA Status: Suspected Priority: High Current Visit: Yes (3) CHF (congestive heart failure) SNOMED Code(s): 89377179 ICD Code: I50.9 - HEART FAILURE, UNSPECIFIED Status: Chronic Priority: High Current Visit: Yes Qualifiers: Congestive heart failure type: unspecified congestive heart failure type (4) Hypertension SNOMED Code(s): 35185170 ICD Code: I10 - ESSENTIAL (PRIMARY) HYPERTENSION Status: Chronic Priority : Low Current Visit: Yes Qualifiers: Hypertension type: unspecified Qualified Code(s): I10 - Essential (primary ) hypertension (5) Insulin dependent diabetes mellitus SNOMED Code(s): 87743190 ICD Code: E11.9 - TYPE 2 DIABETES MELLITUS WITHOUT COMPLICATIONS; Z79.4 - HALF-WAY (CURRENT) USE OF INSULIN Status: Chronic Priority: Low Current Visit: Yes (6) History of TIA (transient ischemic attack) SNOMED Code(s): 180110524 ICD Code: Z86.73 - PRSNL HX OF TIA (TIA), AND CEREB INFRC W/O RESID DEFICITS Status: Chronic Priority: Low Current Visit: Yes (7) Gout SNOMED Code(s): 00936937 ICD Code: M10.9 - GOUT, UNSPECIFIED Status: Chronic Priority: Low Current Visit: Yes Qualifiers: Gout etiology: unspecified cause Chronicity: unspecified Laterality: unspecified laterality (8) Sepsis due to Staphylococcus aureus with acute respiratory failure SNOMED Code(s): 831377228 ICD Code: A41.01 - SEPSIS DUE TO METHICILLIN SUSCEPTIBLE STAPHYLOCOCCUS AUREUS; R65.20 - SEVERE SEPSIS WITHOUT SEPTIC SHOCK; J96.00 - ACUTE RESPIRATORY FAILURE, UNSP W HYPOXIA OR HYPERCAPNIA Status: Acute Priority: High Current Visit: Yes - Patient Summary/Data Consults: Consultations 03/04/17 09:58 PT Evaluation and Treatment [CONS] Routine - Patient Instructions Diet: Heart Healthy Diet Activity: Rest and Relax Today Driving: Do Not Drive Showering/Bathing: May Shower Notify Provider of: Fever, Increased Pain, Drainage, Nausea and/or Vomiting - Discharge Plan Prescriptions/Med Rec: Prednisone [IJD: predniSONE] 40 mg PO WITHBREAKFAST #18 tablet Vancomycin [Vancocin] 1.25 gm IV Q24H #3 adv Home Medications: Home Meds Lisinopril 10 mg PO DAILY 01/13/15 [History] amLODIPine [Norvasc] 10 mg PO DAILY 01/13/15 [History] traMADol [Ultram] 50 mg PO QID PRN 01/13/15 [History] Allopurinol [Zyloprim] 300 mg PO DAILY 03/01/17 [History] Furosemide 40 mg PO DAILY 03/01/17 [History] Metoprolol Tartrate 25 mg PO BID 03/01/17 [History] Prednisone [IJD: predniSONE] 40 mg PO WITHBREAKFAST #18 tablet 03/14/17 [Rx] Vancomycin [Vancocin] 1.25 gm IV Q24H #3 adv 03/14/17 [Rx] Patient Handouts: Sepsis, Adult, MRSA Infection, Adult, Prednisone tablets, Vancomycin injection, Community-Acquired Pneumonia, Adult, [id number] Referrals: [facility] [Outside] Richard Garrido MD [Primary Care Provider] - 03/21/17 9:45 am - Discharge Summary/Plan Comment DC Time >30 min.: Yes Discharge Summary/Plan Comment: 82 yo male admitted 03/01/17 to ICU secondary to discovered MRSA pneumonia and bacteremia with pmh of CHF, Htn, 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, Insulin-dependent DMII and gout. Patient presented to ED with increasing shortness of breath x 1 week. Reported associated fever, chills, nausea, vomiting and diarrhea x 1 week. Stated he awoke on day of admission and was unable to eat secondary to sob and decreased appetite. In ED intial BP in low 70's/30's improved to 80/50 with 1 L NS bolus. Found to have WBC of 22k, lactate 6.1, BUN 78, Cr 3.2. CXR revealing mild cardiomegaly with mild interstitial pulmonary edema and early infiltrate in medial right lung base. Patient was alert and orientated in moderate distress but able to answer questions with O2 sat of high 80's to 90's on 15 L nonrebreather. Granddaughter and daughter at bedside. Denied chest pain, palpitations, syncopal episodes, abdominal pain, or focal neurologic deficits. Has had some pain with urination. Patient was admitted to ICU and started on Vanc, Zosy, and Levoquin. Arterial line was started by Dr. Zamudio for continues BP monitoring. On day 1 of admission blood cultures positive for MRSA and antibiotics changed to Vanc and doxyclin. Patient did have acute renal failure secondary to volume depletion and with IVF resus normalized. IVF resus was slowed as soon as Lactate cleared and kidney function had improved secondary to patients history of CHF. Echocardiogram 03/01/17 revealed: 1. LVEF 55% 2. Mild septal left ventricular hypertrophy 3. Mild aortic valve sclerosis without stenosis. 4. Mild aortic valve regurg 5. Trace tricuspid valve regurg 6. Mild dilatation of aortic root. 7. Moderate biatrial dilation Patient showed continued improvement with normalization of leukocytosis but did continue to need supplemental oxygenation throughout his stay and was discharged with home O2. Picc line was also placed for continued antibiotics for a total of 14 days treatment after clearance of blood cultures. Patient was discharged home with home health and addition 3 days of Vancomycin planned infusion at 1250 mg IV q day. He was scheduled follow up with his PCP Dr. Mederos. - General Info Date of Service: 03/14/17 Admission Dx/Problem (Free Text: Admission Diagnosis/Problem Admission Diagnosis/Problem Pneumonia Subjective Update: Still some sob but improved greatly. No pain, nausea, vomiting, diarrhea. Still needing supplemental O2 but ready for discharge today. Have discussed with granddaughter Casimiro who is aware of treatment plan and in complete understanding. Functional Status: Reports: Pain Controlled, Tolerating Diet - Review of Systems General: Reports: Weakness, Fatigue. Denies: Fever HEENT: Denies: Contact Lenses, Dysphasia Pulmonary: Reports: Shortness of Breath, Cough, Sputum. Denies: Hemoptysis, Wheezing Cardiovascular: Denies: Chest Pain, Palpitations Gastrointestinal: Denies: Abdominal Pain, Constipation, Nausea, Vomiting Genitourinary: Denies: Dysuria, Hematuria Musculoskeletal: Denies: Neck Pain, Foot Pain Skin: Denies: Cyanosis Neurological: Denies: Confusion, Dizziness, Headache Psychiatric: Denies: Confusion - Patient Data Vitals - Most Recent: Last Vital Signs Temp 96.6 F 03/14/17 08:00 Pulse 84 03/14/17 08:00 Resp 20 03/14/17 08:00 BP 138/70 03/14/17 08:00 Pulse Ox 93 L 03/14/17 08:00 Weight - Most Recent: 95.6 kg I&O - Last 24 hours: Intake & Output 03/13/17 03/14/17 03/14/17 22:59 06:59 14:59 Intake Total 1760 850 Balance 1760 850 Lab Results - Last 24 hrs: Laboratory Results - last 24 hr 03/13/17 03/13/17 03/14/17 Range/Units 17:29 21:41 05:04 WBC (4.0-11.0) K/uL RBC (4.50-5.90) M/uL Hgb (13.0-17.0) g/dL Hct (38.0-50.0) % MCV (80.0-98.0) fL MCH (27.0-32.0) pg MCHC (31.0-37.0) g/dL RDW Std Deviation (28.0-62.0) fl RDW Coeff of Tanisha (11.0-15.0) % Plt Count (150-400) K/uL MPV (7.40-12.00) fL Neut % (Auto) (48.0-80.0) % Lymph % (Auto) (16.0-40.0) % [place] % (Auto) (0.0-15.0) % Eos % (Auto) (0.0-7.0) % Baso % (Auto) (0.0-1.5) % Neut # (Auto) (1.4-5.7) K/uL Lymph # (Auto) (0.6-2.4) K/uL [place] # (Auto) (0.0-0.8) K/uL Eos # (Auto) (0.0-0.7) K/uL Baso # (Auto) (0.0-0.1) K/uL Nucleated RBC % /100WBC Nucleated RBCs # K/uL APTT (18.6-31.3) SEC Sodium 136 (136-146) mmol/L Potassium 4.8 (3.5-5.1) mmol/L Chloride 106 (98-110) mmol/L Carbon Dioxide 23 (21-31) mmol/L BUN 47 H (6.0-23.0) mg/dL Creatinine 1.6 H (0.6-1.5) mg/dL Est Cr Clr Drug Dosing 38.11 mL/min Estimated GFR (MDRD) 41.8 ml/min Glucose 166 H (60-110) mg/dL POC Glucose 293 H 245 H (60-110) mg/dL Calcium 8.4 L (8.8-10.8) mg/dL Vancomycin Trough (5-15) ug/mL 03/14/17 03/14/17 03/14/17 Range/Units 05:04 05:04 05:04 WBC 13.24 H (4.0-11.0) K/uL RBC 4.08 L (4.50-5.90) M/uL Hgb 11.7 L (13.0-17.0) g/dL Hct 35.8 L (38.0-50.0) % MCV 87.7 (80.0-98.0) fL MCH 28.7 (27.0-32.0) pg MCHC 32.7 (31.0-37.0) g/dL RDW Std Deviation 45.7 (28.0-62.0) fl RDW Coeff of Tanisha 14 (11.0-15.0) % Plt Count 104 L (150-400) K/uL MPV 13.30 H (7.40-12.00) fL Neut % (Auto) 77.5 (48.0-80.0) % Lymph % (Auto) 15.6 L (16.0-40.0) % [place] % (Auto) 6.8 (0.0-15.0) % Eos % (Auto) 0.1 (0.0-7.0) % Baso % (Auto) 0.0 (0.0-1.5) % Neut # (Auto) 10.3 H (1.4-5.7) K/uL Lymph # (Auto) 2.1 (0.6-2.4) K/uL [place] # (Auto) 0.9 H (0.0-0.8) K/uL Eos # (Auto) 0.0 (0.0-0.7) K/uL Baso # (Auto) 0.0 (0.0-0.1) K/uL Nucleated RBC % 0.0 /100WBC Nucleated RBCs # 0 K/uL APTT 21.7 (18.6-31.3) SEC Sodium (136-146) mmol/L Potassium (3.5-5.1) mmol/L Chloride (98-110) mmol/L Carbon Dioxide (21-31) mmol/L BUN (6.0-23.0) mg/dL Creatinine (0.6-1.5) mg/dL Est Cr Clr Drug Dosing mL/min Estimated GFR (MDRD) ml/min Glucose (60-110) mg/dL POC Glucose (60-110) mg/dL Calcium (8.8-10.8) mg/dL Vancomycin Trough 20.3 H (5-15) ug/mL 03/14/17 Range/Units 06:32 WBC (4.0-11.0) K/uL RBC (4.50-5.90) M/uL Hgb (13.0-17.0) g/dL Hct (38.0-50.0) % MCV (80.0-98.0) fL MCH (27.0-32.0) pg MCHC (31.0-37.0) g/dL RDW Std Deviation (28.0-62.0) fl RDW Coeff of Tanisha (11.0-15.0) % Plt Count (150-400) K/uL MPV (7.40-12.00) fL Neut % (Auto) (48.0-80.0) % Lymph % (Auto) (16.0-40.0) % [place] % (Auto) (0.0-15.0) % Eos % (Auto) (0.0-7.0) % Baso % (Auto) (0.0-1.5) % Neut # (Auto) (1.4-5.7) K/uL Lymph # (Auto) (0.6-2.4) K/uL [place] # (Auto) (0.0-0.8) K/uL Eos # (Auto) (0.0-0.7) K/uL Baso # (Auto) (0.0-0.1) K/uL Nucleated RBC % /100WBC Nucleated RBCs # K/uL APTT (18.6-31.3) SEC Sodium (136-146) mmol/L Potassium (3.5-5.1) mmol/L Chloride (98-110) mmol/L Carbon Dioxide (21-31) mmol/L BUN (6.0-23.0) mg/dL Creatinine (0.6-1.5) mg/dL Est Cr Clr Drug Dosing mL/min Estimated GFR (MDRD) ml/min Glucose (60-110) mg/dL POC Glucose 153 H (60-110) mg/dL Calcium (8.8-10.8) mg/dL Vancomycin Trough (5-15) ug/mL Med Orders - Current: Current Medications Acetaminophen (Tylenol) 650 mg PO Q4H PRN PRN Reason: Pain (Mild 1-3)/fever Albuterol/Ipratropium (Duoneb 3.0-0.5 Mg/3 Ml) 3 ml NEB Q6HRRT [facility] Last Admin: 03/14/17 05:48 Dose: 3 ml Vancomycin HCl 1 gm/ Sodium (Chloride) 250 mls @ 166 mls/hr IV Q24H [facility] Insulin Aspart (Novolog) 0 unit SUBCUT ACBED [facility] PRN Reason: Protocol Last Admin: 03/14/17 06:50 Dose: 2 units Lorazepam (Ativan) 0.5 mg IVPUSH Q8H PRN PRN Reason: Anxiety Last Admin: 03/12/17 13:17 Dose: 0.5 mg Nicotine (Habitrol) 7 mg TRDERM DAILY [facility] Last Admin: 03/14/17 08:25 Dose: 7 mg Ondansetron HCl (Zofran Odt) 4 mg PO Q4H PRN PRN Reason: nausea, able to take PO Ondansetron HCl (Zofran) 4 mg IVPUSH Q4H PRN PRN Reason: Nausea Oxycodone HCl (Oxycodone) 5 mg PO Q4H PRN PRN Reason: Pain (moderate 4-6) Last Admin: 03/09/17 01:13 Dose: 5 mg Polyethylene Glycol (Miralax) 17 gm PO DAILY PRN PRN Reason: Constipation Last Admin: 03/13/17 09:16 Dose: 17 gm Prednisone (Prednisone) 40 mg PO WITHBREAKFAST [facility] Last Admin: 03/14/17 08:25 Dose: 40 mg Vancomycin HCl (Pharmacy To Dose - Vancomycin) 1 dose .XX ASDIRECTED [facility] Wound Care/Dressing Products (Duoderm Cgf) 1 each TOP ASDIRECTED PRN PRN Reason: Ulcer on coccyx Last Admin: 03/13/17 19:01 Dose: 1 each Discontinued Medications Albuterol/Ipratropium (Duoneb 3.0-0.5 Mg/3 Ml) 3 ml NEB ONETIME ONE Stop: 03/01/17 11:05 Last Admin: 03/01/17 11:34 Dose: 3 ml Albuterol/Ipratropium (Duoneb 3.0-0.5 Mg/3 Ml) 3 ml NEB Q4HRRT [facility] Last Admin: 03/07/17 14:08 Dose: Not Given Calcium Carbonate/Glycine (Tums) 1,000 mg PO ONETIME ONE Stop: 03/13/17 08:49 Last Admin: 03/13/17 09:16 Dose: 1,000 mg Doxycycline Hyclate (Vibramycin) 100 mg PO Q12HR [facility] Last Admin: 03/03/17 08:11 Dose: 100 mg Furosemide (Lasix) 40 mg IVPUSH Q8H [facility] Last Admin: 03/04/17 00:32 Dose: 40 mg Furosemide (Lasix) 40 mg IVPUSH Q12H [facility] Last Admin: 03/04/17 20:19 Dose: 40 mg Furosemide (Lasix) 40 mg IVPUSH DAILY [facility] Last Admin: 03/09/17 08:44 Dose: 40 mg Heparin Sodium (Porcine) (Heparin Sodium) 5,000 units SUBCUT Q8H [facility] Last Admin: 03/01/17 21:52 Dose: Not Given Heparin Sodium (Porcine) (Heparin Sodium) 5,000 units SUBCUT Q8H [facility] Last Admin: 03/13/17 06:39 Dose: Not Given Heparin Sodium (Porcine) (Heparin Sodium) 5,000 units SUBCUT TID [facility] Last Admin: 03/13/17 15:51 Dose: Not Given Sodium Chloride (Normal Saline) 1,000 mls @ 125 mls/hr IV STAT [facility] Last Admin: 03/01/17 11:15 Dose: 999 mls/hr Piperacillin Sod/Tazobactam (Sod 2.25 gm/ Sodium Chloride) 50 mls @ 100 mls/hr IV ONETIME ONE Stop: 03/01/17 12:00 Last Admin: 03/01/17 11:36 Dose: 100 mls/hr Vancomycin HCl 1 gm/ Sodium (Chloride) 250 mls @ 250 mls/hr IV ONETIME ONE Stop: 03/01/17 12:31 Last Admin: 03/01/17 11:45 Dose: 250 mls/hr Sodium Chloride (Normal Saline) 1,000 mls @ 125 mls/hr IV STAT [facility] Last Admin: 03/01/17 11:50 Dose: 125 mls/hr Sodium Chloride (Normal Saline) 500 mls @ 999 mls/hr IV .Bolus ONE Stop: 03/01/17 12:55 Last Admin: 03/01/17 12:32 Dose: 999 mls/hr Sodium Chloride (Normal Saline) 1,000 mls @ 200 mls/hr IV ASDIRECTED [facility] Last Admin: 03/01/17 23:15 Dose: 200 mls/hr Levofloxacin/Dextrose 750 mg/ (Premix) 150 mls @ 100 mls/hr IV Q24H [facility] Last Admin: 03/01/17 15:26 Dose: Not Given Piperacillin Sod/Tazobactam (Sod 4.5 gm/ Sodium Chloride) 100 mls @ 100 mls/hr IV Q6H [facility] Last Admin: 03/01/17 15:26 Dose: Not Given Vancomycin HCl 0.5 gm/ Sodium (Chloride) 100 mls @ 200 mls/hr IV 03/01/17@1330 RAUL Stop: 03/01/17 13:59 Last Admin: 03/01/17 13:50 Dose: 200 mls/hr Levofloxacin/Dextrose 750 mg/ (Premix) 150 mls @ 100 mls/hr IV Q24H [facility] Stop: 03/01/17 15:29 Levofloxacin/Dextrose 500 mg/ (Premix) 100 mls @ 100 mls/hr IV Q48H [facility] Piperacillin Sod/Tazobactam (Sod 2.25 gm/ Sodium Chloride) 50 mls @ 50 mls/hr IV Q6H [facility] Last Admin: 03/01/17 15:26 Dose: Not Given Piperacillin Sod/Tazobactam (Sod 2.25 gm/ Sodium Chloride) 50 mls @ 50 mls/hr IV Q6H [facility] Vancomycin HCl 1,500 mg/ (Sodium Chloride) 500 mls @ 500 mls/hr IV Q24H [facility] Ceftriaxone Sodium/Dextrose 2 (gm/ Premix) 50 mls @ 100 mls/hr IV Q24H [facility] Last Admin: 03/02/17 13:13 Dose: 100 mls/hr Magnesium Sulfate 4 gm/ Premix 100 mls @ 50 mls/hr IV ONETIME ONE Stop: 03/01/17 21:17 Last Admin: 03/01/17 19:32 Dose: 50 mls/hr Sodium Chloride (Normal Saline) 500 mls @ 999 mls/hr IV .BOLUS [facility] Last Admin: 03/02/17 01:13 Dose: 999 mls/hr Sodium Chloride (Normal Saline) 1,000 mls @ 100 mls/hr IV ASDIRECTED [facility] Last Admin: 03/02/17 15:56 Dose: 100 mls/hr Vancomycin HCl 1,500 mg/ (Sodium Chloride) 500 mls @ 333.333 mls/hr IV Q24H [facility] Last Admin: 03/03/17 08:10 Dose: 333.333 mls/hr Vancomycin HCl 250 mg/ Sodium (Chloride) 100 mls @ 200 mls/hr IV ONETIME ONE Stop: 03/03/17 10:29 Vancomycin HCl 500 mg/ Sodium (Chloride) 100 mls @ 100 mls/hr IV ONETIME ONE Stop: 03/03/17 10:59 Vancomycin HCl 2,000 mg/ (Sodium Chloride) 500 mls @ 250 mls/hr IV Q24H [facility] Last Admin: 03/09/17 08:36 Dose: Not Given Vancomycin HCl 500 mg/ Sodium (Chloride) 100 mls @ 100 mls/hr IV ONETIME ONE Stop: 03/03/17 10:59 Last Admin: 03/03/17 10:39 Dose: 100 mls/hr Magnesium Sulfate 2 gm/ Premix 50 mls @ 25 mls/hr IV ONETIME ONE Stop: 03/04/17 08:21 Last Admin: 03/04/17 06:51 Dose: 25 mls/hr Potassium Phosphate 30 mmole/ (Sodium Chloride) 510 mls @ 100 mls/hr IV NOW ONE Stop: 03/04/17 11:25 Last Admin: 03/04/17 07:55 Dose: 100 mls/hr Potassium Phosphate 30 mmole/ (Sodium Chloride) 260 mls @ 86.667 mls/hr IV NOW ONE Stop: 03/04/17 18:59 Last Admin: 03/04/17 17:28 Dose: 86.667 mls/hr Magnesium Sulfate 2 gm/ Premix 50 mls @ 50 mls/hr IV ONETIME ONE Stop: 03/04/17 16:59 Last Admin: 03/04/17 16:18 Dose: 50 mls/hr Vancomycin HCl 1,500 mg/ (Sodium Chloride) 500 mls @ 250 mls/hr IV Q24H [facility] Last Admin: 03/11/17 12:46 Dose: Not Given Vancomycin HCl 1,250 mg/ (Sodium Chloride) 500 mls @ 250 mls/hr IV Q24H [facility] Last Admin: 03/11/17 12:46 Dose: Not Given Vancomycin HCl 1,250 mg/ (Sodium Chloride) 500 mls @ 250 mls/hr IV Q24H [facility] Last Admin: 03/14/17 09:37 Dose: Not Given [facility] ([facility] Reason: Protocol Last Admin: 03/01/17 17:02 Dose: 2 units Insulin Aspart (Novolog) 0 - 10 unit SUBCUT QID [facility] PRN Reason: Protocol Lidocaine (Xylocaine-Mpf 2%) Confirm Administered Dose 5 ml .ROUTE .STK-MED ONE Stop: 03/01/17 14:20 Last Admin: 03/01/17 15:02 Dose: 5 ml Methylprednisolone Sodium Succinate (Solu-Medrol) 125 mg IVPUSH ONETIME ONE Stop: 03/01/17 11:05 Last Admin: 03/01/17 11:33 Dose: 125 mg Morphine Sulfate (Morphine) 2 mg IVPUSH Q2H PRN PRN Reason: Pain (severe 7-10) Stop: 03/02/17 12:40 Ondansetron HCl (Zofran) 8 mg IVPUSH ONETIME ONE Stop: 03/01/17 11:08 Last Admin: 03/01/17 11:33 Dose: 8 mg Polyethylene Glycol (Miralax) 17 gm PO DAILY PRN PRN Reason: Constipation Potassium Chloride (Klor-Con M20) 20 meq PO ONETIME ONE Stop: 03/02/17 07:01 Last Admin: 03/02/17 07:26 Dose: 20 meq Potassium Chloride (Klor-Con M20) 40 meq PO ONETIME ONE Stop: 03/04/17 06:24 Last Admin: 03/04/17 06:51 Dose: 40 meq Vancomycin HCl (Pharmacy To Dose - Vancomycin) 1 dose .XX ASDIRECTED [facility] Wound Care/Dressing Products (Duoderm Cgf) 1 each TOP ASDIRECTED ONE Stop: 03/02/17 23:27 Last Admin: 03/02/17 23:47 Dose: 1 each - Exam Quality Assessment: Reports: Supplemental Oxygen, DVT Prophylaxis General: Reports: Alert, Oriented, Cooperative, No Acute Distress HEENT: Reports: Pupils Equal, Pupils Reactive, EOMI, Mucous Membr. Moist/[place] Neck: Reports: Supple, Trachea Midline, No JVD Lungs: Reports: Normal Respiratory Effort, Crackles, Rhonchi Cardiovascular: Reports: Regular Rate, Regular Rhythm GI/Abdominal Exam: Normal Bowel Sounds, Soft, Non-Tender, No Organomegaly, No Distention Back Exam: Reports: Normal Inspection Extremities: Normal Inspection, Non-Tender, No Pedal Edema, Normal Capillary Refill Skin: Reports: Warm, Dry, Intact Neurological: Reports: No New Focal Deficit Psy/Mental Status: Reports: Alert, Normal Affect, Normal Mood *Q Meaningful Use (DIS) - VTE *Q VTE Criteria *Q: - Stroke *Q Stroke Criteria *Q: - AMI *Q AMI Criteria *Q:
== END 2017-03-14 16:25 | disposition home health service (06) | DRG 871 ==
LOC: MW.ED 10:59 → MW.ICU 12:18 → EEVIPCON 12:18 → MW.MS 03-08 13:05 → UNDODISIN 03-14 14:21
PROVIDERS: ADMIT Family Medicine; ATTEND Family Medicine
PROC: 02HV33Z Insertion of Infusion Device into Superior Vena Cava, Percutaneous Approach (ICD-10-PCS; principal; 2017-03-14)
DX: J18.9 Pneumonia, unspecified organism (principal); I95.9 Hypotension, unspecified; R11.10 Vomiting, unspecified; R19.7 Diarrhea, unspecified; A41.02 Sepsis due to Methicillin resistant Staphylococcus aureus; R65.21 Severe sepsis with septic shock; J15.212 Pneumonia due to Methicillin resistant Staphylococcus aureus; R78.81 Bacteremia; J81.1 Chronic pulmonary edema; N17.9 Acute kidney failure, unspecified; I50.9 Heart failure, unspecified; I10 Essential (primary) hypertension; E11.9 Type 2 diabetes mellitus without complications; M10.9 Gout, unspecified; I51.7 Cardiomegaly; I35.8 Other nonrheumatic aortic valve disorders; I08.2 Rheumatic disorders of both aortic and tricuspid valves; I77.819 Aortic ectasia, unspecified site; Z79.82 Long term (current) use of aspirin; Z86.73 Personal history of transient ischemic attack (TIA), and cerebral infarction without residual deficits; Z79.4 Long term (current) use of insulin; Z79.899 Other long term (current) drug therapy; R06.02 Shortness of breath
CPT/HCPCS: 36415; 36600; 71010; 80053; 82550; 82553; 82803; 82962; 83605; 83735; 83880; 84484; 85025; 87040 ×2; 87186; 87804 ×2; 96361; 96365; 96367; 96375; 99285; J2405; J2543; J2930; J3370; J7040 ×2; J7050 ×2; 71250; 71250-26; 74176; 74176-26; 76937; 76937-26; 77001; 77001-26; 80048; 80202; 81001; 84100; 84132; 85730; 87070; 87077; 87205; 87324; 93005; 93306; 94640; 97110-GP; 97161-GP; 97530-GP; 99283; A9270-GY; J0696; J1644; J1815-GY; J1940; J2060; J3475; J7030